=== PATIENT | female | born 1945 | race Caucasian/White ===

== ENCOUNTER → 2017-10-06 | Outpatient (CLI) | payer MEDICARE, OTHER ==
--- NOTE | 2017-10-06 14:04 | RADIOLOGY REPORT (SQ) ---
EXAM DESCRIPTION: CT LUNG CANCER SCREENING COMPLETED DATE/TIME: 10/06/2017 10:52 am REASON FOR STUDY: PERSONAL HX OF NICOTINE DEPENDENCE Z87.891 PERSONAL HISTORY OF NICOTINE DEPENDENC E Has the patient had a Chest CT scan within the past year? Yes. Was the patient offered tobacco cessation counseling? Yes. Was the patient engaged in shared decision making for this test? Yes. Does the patient have signs or symptoms of Lung Cancer? No. Is the patient a smoker? No. How many packs per year? 730. How many years since quitting smoking? 15 years. Patients age: 72. COMPARISON: None. TECHNIQUE: Low Dose CT scan performed of the chest without intravenous contrast for purposes of scre ening for lung cancer. Images reviewed with lung, soft tissue and bone windows. Reconstructed coron al and sagittal MPR images reviewed. All images stored on PACS. All CT scanners at this facility use dose modulation, iterative reconstruction, and/or weight based d osing when appropriate to reduce radiation dose to as low as reasonably achievable (ALARA). [facility]: Dose Right [facility]: CareDose [facility]: Dose Right [facility]: Teradose 4D [facility]: [employer] RADIATION DOSE: mGy. . LIMITATIONS: None FINDINGS: LUNGS AND PLEURA: No masses or nodules. Calcified granulomas. No pleural effusions or calcifications. No pneumothorax. No scarring or interstitial changes. HILAR AND MEDIASTINAL STRUCTURES: No identified masses. No abnormal nodes. Calcified lymph nodes. HEART AND VASCULAR STRUCTURES: No aortic aneurysm. No pericardial effusion. No cardiac devices. CORONARY ARTERY CALCIFICATIONS: Mild to moderate calcifications. UPPER ABDOMEN, THYROID, BONES, OTHER SOFT TISSUES: No significant findings. IMPRESSION: NO SIGNIFICANT FINDING IN THE LUNGS ON NON-CONTRASTED CHEST CT. NO OTHER CLINICALLY SIGNIFICANT/POTENTIALLY CLINICALLY SIGNIFICANT FINDINGS LUNGRADS: LUNGRADS: 1 NEGATIVE. NO NODULES, OR DEFINITELY BENIGN NODULES MODIFIER: NONE RECOMMENDATION: Continue annual screening with LDCT in 12 months. COMMENT: CRITERIA: No lung nodules. Nodules with specific calcifications: Complete, central, popcorn, concentric rings and fat containin g nodules. TECHNICAL DOCUMENTATION: JOB ID: [id number] Quality ID # [id number]: Final reports with documentation of one or more dose reduction techniques (e.g., Au tomated exposure control, adjustment of the mA and/or kV according to patient size, use of iterative reconstruction technique) [address] [place] [address] Radiology Reading location - IP/workstation name: [email or web address]
== END ==
LOC: RAD 10:13
PROVIDERS: ATTEND Physician Assistant
DX: Z87.891 Personal history of nicotine dependence (principal)
CPT/HCPCS: G0297

== ENCOUNTER → 2017-12-03 | Outpatient (CLI) | payer MEDICARE, OTHER ==
[~2017-12-03] MED LIST: ACETAMINOPHEN 0 ML IV ONE; DEXAMETHASONE SOD PHOSPHATE INJ 4 MG/1 ML VIAL ONE; FENTANYL CITRATE INJ/PF 100 MCG/2 ML AMPUL ONE; MIDAZOLAM 2 MG/2 ML INJ ONE; MORPHINE SULFATE 10 MG/ML INJ ONE; ONDANSETRON HCL INJ/PF 4 MG/2 ML SDV ONE; PROPOFOL INJ 200 MG/20 ML VIAL IV ONE; TRANEXAMIC ACID INJ/PF 1,000 MG/10 ML SDV IV ONE
--- NOTE | 2017-12-03 14:12 | WOMENS IMAGING REPORT ---
EXAM DESCRIPTION: 3D SCREENING MAMMO BILAT COMPLETED DATE/TIME: 12/03/2017 1:40 pm REASON FOR STUDY: ROUTINE SCREENING;Z12.31 Z12.31 ENCNTR SCREEN MAMMOGRAM FOR MALIGNANT NEOPLASM OF SHAUNA COMPARISON: [id number] TECHNIQUE: Standard craniocaudal and mediolateral oblique views of each breast recorded using digita l acquisition and breast tomosynthesis. LIMITATIONS: None. FINDINGS: No masses, calcifications or architectural distortion. No areas of suspicion. Read with the assistance of CAD. .[facility] - R2 Cenova Version 1.3 .[facility] Imaging - R2 Cenova Version 1.3 .[facility] Imaging - R2 Cenova Version 2.4 .[facility] - R2 Cenova Version 2.4 .[facility] - R2 Early Childhood Lead Teacher Version 9.2 IMPRESSION: NORMAL MAMMOGRAM. BIRADS 1. BREAST DENSITY: b. There are scattered areas of fibroglandular density. BIRAD: 1 NEGATIVE RECOMMENDATION: ROUTINE SCREENING COMMENT: The patient has been notified of the results by letter per SA requirements. Additional no tification policies are in place for contacting patient with suspicious or incomplete findings. Quality ID #[id number]: The [employer] recommends an annual screening mammogram for women aged 40 years or over. This facility utilizes a reminder system to ensure that all patients receive reminder letters, and/or direct phone calls for appointments. This includes reminders for routine scr eening mammograms, diagnostic mammograms, or other Breast Imaging Interventions when appropriate. Th is patient will be placed in the appropriate reminder system. The [employer] (ACR) has developed recommendations for screening MRI of the breast s in certain patient populations, to be used in conjunction with mammography. Breast MRI surveillanc e may be appropriate for women with more than 20% lifetime risk of developing breast cancer as deter mined by genetic testing, significant family history of the disease, or history of mantle radiation f or Hodgkins Disease. ACR Practice Guidelines 2008. DBT Technology DBT is a type of tomographic mammography. With conventional mammography, overlapping breast tissue ma y make lesions difficult to detect, even with good compression. DBT uses an x-ray tube that rotates a round the breast, taking images at different angles. These images are then combined to create thin sl ices of the breast that the radiologist can view as a 3D reconstruction. The [employer] unit can perform full-field digital mammograms (2D imaging); or DBT (3D imaging); or both, in a combination mode that quickly performs both the mammogram and the tomosynthesis scan while the breast is still compressed. PQRS 6045F: Fluoroscopic imaging is not utilized for breast tomosynthesis. TECHNICAL DOCUMENTATION: FINDING NUMBER: (1) ASSESSMENT: (1) JOB ID: [id number] [employer]- All Rights Reserved Reading location - IP/workstation name: [email or web address]
== END ==
LOC: WI 13:09
PROVIDERS: ATTEND Internal Medicine
DX: Z12.31 Encounter for screening mammogram for malignant neoplasm of breast (principal)
CPT/HCPCS: 77063; 77067; J2250; J1100; J2270; J2405; J2704; J3490; J0131; J3010

== ENCOUNTER → 2018-01-13 | Outpatient (CLI) | payer MEDICARE, OTHER ==
[2018-01-13 16:52] LABS: ABSOLUTE BASOPHILS # (AUTO) 0.1 10^3/uL (0.0-0.2); ABSOLUTE EOSINOPHILS # (AUTO) 0.1 10^3/uL (0.0-0.6); ABSOLUTE LYMPHOCYTES (AUTO) 1.5 10^3/uL (0.5-4.7); ABSOLUTE MONOCYTES (AUTO) 0.5 10^3/uL (0.1-1.4); ABSOLUTE NEUT (AUTO) 4.5 10^3/uL (1.7-8.2); BASOPHILS % (AUTO) 1.1 % (0-2); EOSINOPHILS % (AUTO) 2.2 % (0-6); HEMATOCRIT 38.1 % (36.0-47.0); HEMOGLOBIN 12.6 g/dL (12.0-15.5); LYMPHOCYTES % (AUTO) 22.7 % (13-45); MEAN CORPUSCULAR HEMOGLOBIN 30.2 pg (27.0-33.4); MEAN CORPUSCULAR HGB CONC 33.2 g/dL (32.0-36.0); MEAN CORPUSCULAR VOLUME 91 fl (80-97); MONOCYTES % (AUTO) 7.2 % (3-13); PLATELET COUNT 208 10^3/uL (150-450); RED BLOOD COUNT 4.18 10^6/uL (3.72-5.28); RED CELL DISTRIBUTION WIDTH 13.3 % (11.5-14.0); SEGMENTED NEUTROPHILS % (AUTO) 66.8 % (42-78); TOTAL CELLS COUNTED % (AUTO) 100 %; WHITE BLOOD COUNT 6.7 10^3/uL (4.0-10.5)
[2018-01-13 17:16] LABS: ARTERIAL BLOOD BASE EXCESS 6.3 mmol/L; ARTERIAL BLOOD H2CO3 1.66 mmol/L (1.05-1.35); ARTERIAL BLOOD HCO3 32.7 mmol/L (20-26); ARTERIAL BLOOD O2 SATURATION 83.9 % (94-98); ARTERIAL BLOOD PCO2 55.2 mmHg (35-45); ARTERIAL BLOOD PH 7.39 (7.35-7.45); ARTERIAL BLOOD PO2 49.4 mmHg (80-100); ARTERIAL BLOOD TOTAL CO2 34.4 mmol/L (21-25)
[2018-01-13 17:21] LABS: ARTERIAL BLOOD FIO2 2L
[2018-01-14 14:40] LABS: ANTICHROMATIN AB <0.2 AI (0.0-0.9); CENTROMERE B AB <0.2 AI (0.0-0.9); JO-1 ANTIBODY (ANACOMP) <0.2 AI (0.0-0.9); RNP AB <0.2 AI (0.0-0.9); SCLERODERMA-70 ANTIBODIES <0.2 AI (0.0-0.9); SJOGREN'S ANTI-SS-B AB <0.2 AI (0.0-0.9); SJOGREN'S SS-A ANTIBODY 0.2 AI (0.0-0.9); SMITH AB ANA <0.2 AI (0.0-0.9)
[2018-01-14 17:37] LABS: CYTOPLASMIC (C-ANCA) <1:20 titer (Neg:<1:20)
[2018-01-14 19:28] LABS: DNA DOUBLE STRAND ANTIBODY ANA 2 IU/mL (0-9)
[2018-01-14 19:29] LABS: ATYPICAL PANCA <1:20 titer (Neg:<1:20); PERINUCLEAR (P-ANCA) <1:20 titer (Neg:<1:20)
[2018-01-15 10:38] LABS: M001-IGE PENICILLIUM CHRYSOGEN <0.10 kU/L (Class 0); M002-IGE CLADOSPORIUM HERBARUM <0.10 kU/L (Class 0); M003-IGE ASPERGILLUS FUMIGATUS <0.10 kU/L (Class 0); M004-IGE MUCOR RACEMOSUS <0.10 kU/L (Class 0); M005-IGE CANDIDA ALBICANS 0.17 kU/L (Class 0/I); M006-IGE ALTERNARIA ALTERNATA <0.10 kU/L (Class 0); M009-IGE FUSARIUM PROLIFERATUM <0.10 kU/L (Class 0); M012-IGE AUREOBASIDI PULLULANS <0.10 kU/L (Class 0); M013-IGE PHOMA BETAE <0.10 kU/L (Class 0); M014-IGE EPICOCCUM PURPURASCEN <0.10 kU/L (Class 0)
[2018-01-15 10:52] LABS: M010-IGE STEMPHYLIUM HERBARUM <0.10 kU/L (Class 0)
== END ==
LOC: LAB 16:10
PROVIDERS: ATTEND Physician Assistant
DX: J30.9 Allergic rhinitis, unspecified (principal); R06.00 Dyspnea, unspecified
CPT/HCPCS: 36415; 36600; 82785; 82803; 85025; 86003; 86021; 86225; 86235; 86430

== ENCOUNTER → 2018-01-15 | Outpatient (CLI) | payer MEDICARE, OTHER ==
[2018-01-15 14:57] LABS: ARTERIAL BLOOD BASE EXCESS 5.2 mmol/L; ARTERIAL BLOOD H2CO3 1.71 mmol/L (1.05-1.35); ARTERIAL BLOOD O2 SATURATION 92.5 % (94-98); ARTERIAL BLOOD PCO2 56.9 mmHg (35-45); ARTERIAL BLOOD PH 7.37 (7.35-7.45); ARTERIAL BLOOD PO2 67.4 mmHg (80-100); ARTERIAL BLOOD TOTAL CO2 33.8 mmol/L (21-25)
[2018-01-15 14:58] LABS: ARTERIAL BLOOD FIO2 2L
== END ==
LOC: LAB 12:55
PROVIDERS: ATTEND Physician Assistant
DX: J44.9 Chronic obstructive pulmonary disease, unspecified (principal)
CPT/HCPCS: 36600; 82803

== ENCOUNTER 2018-04-29 14:29 | Emergency (ER) | payer MEDICARE ==
[2018-04-29] MEDS ORDERED: PANTOPRAZOLE SODIUM 40 MG VIAL IV ONE (15:33)
[2018-04-29 16:20] LABS: ABSOLUTE EOSINOPHILS # (AUTO) 0.2 10^3/uL (0.0-0.6); ABSOLUTE LYMPHOCYTES (AUTO) 1.7 10^3/uL (0.5-4.7); ABSOLUTE MONOCYTES (AUTO) 0.5 10^3/uL (0.1-1.4); ABSOLUTE NEUT (AUTO) 4.4 10^3/uL (1.7-8.2); BASOPHILS % (AUTO) 0.4 % (0-2); EOSINOPHILS % (AUTO) 2.8 % (0-6); HEMATOCRIT 36.5 % (36.0-47.0); HEMOGLOBIN 12.1 g/dL (12.0-15.5); LYMPHOCYTES % (AUTO) 24.5 % (13-45); MEAN CORPUSCULAR HEMOGLOBIN 30.5 pg (27.0-33.4); MEAN CORPUSCULAR VOLUME 92 fl (80-97); MONOCYTES % (AUTO) 7.1 % (3-13); PLATELET COUNT 212 10^3/uL (150-450); RED BLOOD COUNT 3.96 10^6/uL (3.72-5.28); RED CELL DISTRIBUTION WIDTH 13.4 % (11.5-14.0); SEGMENTED NEUTROPHILS % (AUTO) 65.2 % (42-78); TOTAL CELLS COUNTED % (AUTO) 100 %; WHITE BLOOD COUNT 6.8 10^3/uL (4.0-10.5)
[2018-04-29 16:28] LABS: APPEARANCE,URINE SLIGHTLY-CLOUDY; BILIRUBIN,URINE NEGATIVE (NEGATIVE); COLOR,URINE YELLOW; GLUCOSE, URINE NEGATIVE (NEGATIVE); KETONES,URINE NEGATIVE (NEGATIVE); LEUKOCYTE ESTERASE,URINE SMALL (NEGATIVE); NITRITE,URINE POSITIVE (NEGATIVE); PROTEIN,URINE 30 mg/dL (NEGATIVE); URINE SPECIFIC GRAVITY 1.015; UROBILINOGEN,URINE NEGATIVE mg/dL (<2.0)
[2018-04-29 16:41] LABS: ALANINE AMINOTRANSFERASE 33 U/L (9-52); ALBUMIN 4.1 g/dL (3.5-5.0); ALKALINE PHOSPHATASE 35 U/L (38-126); ANION GAP 7 (5-19); ASPARTATE AMINO TRANSFERASE 61 U/L (14-36); BILIRUBIN,DIRECT 0.5 mg/dL (0.0-0.4); BILIRUBIN,TOTAL 0.5 mg/dL (0.2-1.3); BLOOD UREA NITROGEN 30 mg/dL (7-20); CALCIUM 9.6 mg/dL (8.4-10.2); CARBON DIOXIDE 32 mmol/L (22-30); CHLORIDE 102 mmol/L (98-107); GLUCOSE 110 mg/dL (75-110); LIPASE 143.9 U/L (23-300); POTASSIUM 4.4 mmol/L (3.6-5.0); SODIUM 141.4 mmol/L (137-145); TOTAL PROTEIN 7.4 g/dL (6.3-8.2)
--- NOTE | 2018-04-29 18:02 | RADIOLOGY REPORT (SQ) ---
EXAM DESCRIPTION: CT ABD/PELVIS WITH IV ONLY COMPLETED DATE/TIME: 04/29/2018 5:47 pm REASON FOR STUDY: black stool hx of diverticulistis COMPARISON: None. TECHNIQUE: CT scan of the abdomen and pelvis performed using helical scanning technique with dynamic intravenous contrast injection. No oral contrast. Images reviewed with lung, soft tissue, and bone windows. Reconstructed coronal and sagittal MPR images reviewed. Delayed images for evaluation of the urinary system also acquired. All images stored on PACS. All CT scanners at this facility use dose modulation, iterative reconstruction, and/or weight based d osing when appropriate to reduce radiation dose to as low as reasonably achievable (ALARA). [facility]: Dose Right [facility]: CareDose [facility]: Dose Right [facility]: Teradose 4D [facility]: [employer] CONTRAST TYPE AND DOSE: contrast/concentration: Isovue 350.00 mg/ml; Total Contrast Delivered: 100.0 ml; Total Saline Delivered: 70.0 ml RENAL FUNCTION: BUN 30, creatinine 0.97 RADIATION DOSE: CT Rad equipment meets quality standard of care and radiation dose reduction techniq ues were employed. CTDIvol: 20.1 - 20.8 mGy. DLP: 2160 mGy-cm.. LIMITATIONS: None. FINDINGS: LOWER CHEST: No significant findings. No nodules or infiltrates. LIVER: Normal size. No masses. No dilated ducts. SPLEEN: There are small splenic lesions most likely cysts or hemangiomas. PANCREAS: No masses. No significant calcifications. No adjacent inflammation or peripancreatic fluid collections. Pancreatic duct not dilated. GALLBLADDER: Surgically absent. ADRENAL GLANDS: No significant masses or asymmetry. RIGHT KIDNEY AND URETER: No solid masses. No significant calcifications. No hydronephrosis or hyd roureter. LEFT KIDNEY AND URETER: No solid masses. No significant calcifications. No hydronephrosis or hydr oureter. AORTA AND VESSELS: No aneurysm. No dissection. Renal arteries, SMA, celiac without stenosis. RETROPERITONEUM: No retroperitoneal adenopathy, hemorrhage or masses. BOWEL AND PERITONEAL CAVITY: No masses or inflammatory changes. No free fluid or peritoneal masses. APPENDIX: Not visualized. PELVIS: No mass. No free fluid. Normal bladder. ABDOMINAL WALL: No masses. No hernias. BONES: No significant or acute findings. OTHER: No other significant finding. IMPRESSION: NO SIGNIFICANT OR ACUTE FINDING IN THE ABDOMEN OR PELVIS ON CT SCAN WITH IV CONTRAST. TECHNICAL DOCUMENTATION: JOB ID: [id number] Quality ID # [id number]: Final reports with documentation of one or more dose reduction techniques (e.g., Au tomated exposure control, adjustment of the mA and/or kV according to patient size, use of iterative reconstruction technique) 2010 [employer]- All Rights Reserved Reading location - IP/workstation name: [email or web address]
[2018-04-29] MEDS ORDERED: NITROFURANTOIN MONOHYD/M-CRYST 100 MG CAPSULE PO ONE (18:15)
[2018-04-29 18:41] VITALS: BP 154/65
--- NOTE | 2018-04-29 18:41 | ER Document Report ---
ED General - General Chief Complaint: Black/Tarry Stools Stated Complaint: BLACK STOOLS Time Seen by Provider: 04/29/18 15:26 TRAVEL OUTSIDE OF THE [place] IN LAST 30 DAYS: No - HPI Patient complains to provider of: Black tarry stools Notes: Patient coming in for evaluation of black tarry stool states ongoing for the last 4 days. Patient also states having some right lower quadrant abdominal pain. Denies any fevers chills nausea vomiting diarrhea. Patient states she has been taking some increased Advil over the last few days because of the pain. Patient does have a history of GI bleeds in the past states that her last colonoscopy was [address] Sierra that she states was normal. Patient denies any history of gastritis or stomach ulcers. Patient otherwise is resting comfortably upon my evaluation denies eating any beats taking Pepto- Bismol or any other etiologies that may explain the black stools. Patient states she does have a history of diverticulitis however does not feel the same today. Patient no obvious distress. Upon my evaluation - Related Data Allergies/Adverse Reactions: morphine Allergy (Intermediate, Verified 04/29/18 14:33) Erythema Multiforme metformin Adverse Reaction (Verified 04/29/18 14:33) Diarrhea Past Medical History - Social History Smoking Status: Former Smoker Frequency of alcohol use: None Drug Abuse: None Family History: Reviewed & Not Pertinent Patient has suicidal ideation: No Patient has homicidal ideation: No - Past Medical History Cardiac Medical History: Reports: Hx Hypercholesterolemia, Hx Hypertension Pulmonary Medical History: Reports: Hx COPD, Hx Pneumonia, Hx Intubation Neurological Medical History: Reports: Hx Seizures Endocrine Medical History: Reports: Hx Diabetes Mellitus Type 1 Renal/ Medical History: Denies: Hx Peritoneal Dialysis Musculoskeletal Medical History: Reports Hx Arthritis Psychiatric Medical History: Reports: Hx Depression Traumatic Medical History: Reports: Hx Pneumothorax Past Surgical History: Reports: Hx Cardiac Catheterization, Hx Cholecystectomy, Hx Hysterectomy, Hx Orthopedic Surgery - knee - Immunizations Hx Diphtheria, Pertussis, Tetanus Vaccination: No Hx Pneumococcal Vaccination: 04/27/14 Review of Systems - Review of Systems Constitutional: No symptoms reported EENT: No symptoms reported Cardiovascular: No symptoms reported Respiratory: No symptoms reported Gastrointestinal: Abdominal pain, Rectal bleeding Genitourinary: No symptoms reported Female Genitourinary: No symptoms reported Musculoskeletal: No symptoms reported Skin: No symptoms reported Hematologic/Lymphatic: No symptoms reported Neurological/Psychological: No symptoms reported -: Yes All other systems reviewed and negative Physical Exam - Vital signs Vitals: Temp Pulse Resp BP Pulse Ox 98.7 F 66 18 135/74 H 91 L 04/29/18 14:36 04/29/18 14:36 04/29/18 14:36 04/29/18 14:36 04/29/18 14:36 Interpretation: Normal - General General appearance: Appears well, Alert - HEENT Head: Normocephalic, Atraumatic Eyes: Normal Pupils: PERRL - Respiratory Respiratory status: No respiratory distress Chest status: Nontender Breath sounds: Normal Chest palpation: Normal - Cardiovascular Rhythm: Regular Heart sounds: Normal auscultation Murmur: No - Abdominal Inspection: Normal Distension: No distension Bowel sounds: Normal Tenderness: Nontender Organomegaly: No organomegaly - Rectal Stool: Other - Stools not black will not light brown more dark brown in color no bright red blood seen on examination Hemoccult card to return blue testing was performed at bedside I am not colored blood and able t see the color BLUE - Back Back: Normal, Nontender - Extremities General upper extremity: Normal inspection, Nontender, Normal color, Normal ROM , Normal temperature General lower extremity: Normal inspection, Nontender, Normal color, Normal ROM , Normal temperature, Normal weight bearing. No: Tash's sign - Neurological Neuro grossly intact: Yes Cognition: Normal Orientation: AAOx4 [place] Coma Scale Eye Opening: Spontaneous [place] Coma Scale Verbal: Oriented [place] Coma Scale Motor: Obeys Commands Jack Coma Scale Total: 15 Speech: Normal Motor strength normal: LUE, RUE, LLE, RLE Sensory: Normal - Psychological Associated symptoms: Normal affect, Normal mood - Skin Skin Temperature: Warm Skin Moisture: Dry Skin Color: Normal Course - Re-evaluation Re-evalutation: 04/29/18 22:25 CT scan of the abdomen was negative patient's hemoglobin is stable with a hemoglobin of 12. No clear etiology for the patient's bleeding at this time did discuss with her GI physician Dr. Sierra who agrees that with a stable hemoglobin patient can be follow-up as outpatient patient will be started on omeprazole Dr. Sierra's office will call the patient tomorrow to schedule a EGD. Patient was encouraged to avoid any anti-inflammatory medications urinalysis does show positive nitrates will start patient on Macrobid. Patient agrees with this plan understands return to ER symptoms worsen patient discharged home. - Vital Signs Vital signs: Temp Pulse Resp BP Pulse Ox 98.4 F 82 21 H 154/65 H 98 04/29/18 15:21 04/29/18 18:40 04/29/18 18:40 04/29/18 18:40 04/29/18 18:40 - Laboratory Result Diagrams: 04/29/18 16:05 04/29/18 16:05 Laboratory results interpreted by me: 04/29/18 04/29/18 15:39 16:05 Carbon Dioxide 32 H BUN 30 H Est GFR (Non-Af Amer) 56 L Direct Bilirubin 0.5 H AST 61 H Alkaline Phosphatase 35 L Urine Protein 30 H Urine Nitrite POSITIVE H Ur Leukocyte Esterase SMALL H Discharge - Discharge Clinical Impression: Blood in stool UTI (urinary tract infection) Qualifiers: Urinary tract infection type: acute cystitis Hematuria presence: without hematuria Qualified Code(s): N30.00 - Acute cystitis without hematuria Disposition: HOME, SELF-CARE Instructions: Nitrofurantoin ([facility]), Positive Test for Blood in Stool ([facility]), Prilosec (Acid Pump Inhibitor) ([facility]), Urinary Tract Infection ([facility]) Additional Instructions: Your laboratory studies today show a normal hemoglobin with a little bit of blood in your stool. I did discuss this case with Dr. Sierra your GI physician he will have his office call you to schedule you further scopes for further evaluation otherwise her vital signs laboratory studies CT scan show that you are safe enough to go home. I would highly recommend that she continue with the omeprazole as prescribed. Also urinary studies show signs of infection we will start you on Macrobid return to the ER for any worsening of symptoms. Prescriptions: Nitrofurantoin Monohyd/M-Cryst [Macrobid 100 mg Capsule] 100 mg PO BID #14 capsule Omeprazole 20 mg PO DAILY #30 tablet. Referrals: TUAN DERAS MD [Primary Care Provider] - Follow up as needed
== END 2018-04-29 18:55 | disposition home or self-care (01) ==
LOC: ER 14:29
DX: K92.1 Melena (principal); N30.00 Acute cystitis without hematuria; R10.31 Right lower quadrant pain; I10 Essential (primary) hypertension; E10.9 Type 1 diabetes mellitus without complications; J44.9 Chronic obstructive pulmonary disease, unspecified; Z87.19 Personal history of other diseases of the digestive system; Z88.5 Allergy status to narcotic agent; Z87.891 Personal history of nicotine dependence; Z90.49 Acquired absence of other specified parts of digestive tract; Z90.710 Acquired absence of both cervix and uterus
CPT/HCPCS: 99284; 96374; 86900; 86901; 36415; 87086; 86850; 83690; 85025; 87088; 80053; 81001; 87186; 74177; C9113; A9270; J8499; S0164

== ENCOUNTER → 2018-10-09 | Outpatient (CLI) | payer MEDICARE, OTHER ==
--- NOTE | 2018-10-09 14:49 | RADIOLOGY REPORT (SQ) ---
EXAM DESCRIPTION: CT LUNG CANCER SCREENING COMPLETED DATE/TIME: 10/09/2018 2:36 pm REASON FOR STUDY: Z87.891 PERSONAL HISTORY OF NICOTINE DEPENDENCE Z87.891 PERSONAL HISTORY OF NICOT INE DEPENDENCE Has the patient had a Chest CT scan within the past year? Was the patient offered tobacco cessation counseling? Was the patient engaged in shared decision making for this test? Does the patient have signs or symptoms of Lung Cancer? Is the patient a smoker? How many pack years? How many years since quitting smoking? Patients age: COMPARISON: 10/06/2017 TECHNIQUE: Low Dose CT scan performed of the chest without intravenous contrast for purposes of scre ening for lung cancer. Images reviewed with lung, soft tissue and bone windows. Reconstructed coron al and sagittal MPR images reviewed. All images stored on PACS. All CT scanners at this facility use dose modulation, iterative reconstruction, and/or weight based d osing when appropriate to reduce radiation dose to as low as reasonably achievable (ALARA). [facility]: Dose Right [facility]: CareDose [facility]: Dose Right [facility]: Teradose 4D [facility]: [employer] RADIATION DOSE: mGy. . LIMITATIONS: None FINDINGS: LUNGS AND PLEURA: Calcified granulomas. No suspicious nodules. No pleural effusions or calcifications. No pneumothorax. HILAR AND MEDIASTINAL STRUCTURES: No identified masses. No abnormal nodes. HEART AND VASCULAR STRUCTURES: No aortic aneurysm. No pericardial effusion. No cardiac devices. CORONARY ARTERY CALCIFICATIONS: Mild to moderate calcifications. UPPER ABDOMEN, THYROID, BONES, OTHER SOFT TISSUES: No significant findings. IMPRESSION: NO SIGNIFICANT FINDING IN THE LUNGS ON NON-CONTRASTED CHEST CT. NO OTHER CLINICALLY SIGNIFICANT/POTENTIALLY CLINICALLY SIGNIFICANT FINDINGS LUNGRADS: LUNGRADS: 1 NEGATIVE. NO NODULES, OR DEFINITELY BENIGN NODULES MODIFIER: NONE RECOMMENDATION: Continue annual screening with LDCT in 12 months. COMMENT: CRITERIA: No lung nodules. Nodules with specific calcifications: Complete, central, popcorn, concentric rings and fat containin g nodules. TECHNICAL DOCUMENTATION: JOB ID: [id number] Quality ID # [id number]: Final reports with documentation of one or more dose reduction techniques (e.g., Au tomated exposure control, adjustment of the mA and/or kV according to patient size, use of iterative reconstruction technique) 2010 [facility] Reading location - IP/workstation name: [email or web address]
== END ==
LOC: RAD 14:37
PROVIDERS: ATTEND Internal Medicine Pulmonary Disease
DX: Z87.891 Personal history of nicotine dependence (principal)
CPT/HCPCS: G0297

== ENCOUNTER → 2018-11-11 | Outpatient (CLI) | payer MEDICARE, OTHER ==
[2018-11-11 14:39] LABS: HEMATOCRIT 35.7 % (36.0-47.0); HEMOGLOBIN 12.1 g/dL (12.0-15.5); MEAN CORPUSCULAR HEMOGLOBIN 30.2 pg (27.0-33.4); MEAN CORPUSCULAR VOLUME 89 fl (80-97); PLATELET COUNT 198 10^3/uL (150-450); RED BLOOD COUNT 4.01 10^6/uL (3.72-5.28); WHITE BLOOD COUNT 6.5 10^3/uL (4.0-10.5)
[2018-11-11 15:11] LABS: ALANINE AMINOTRANSFERASE 32 U/L (9-52); ALBUMIN 4.2 g/dL (3.5-5.0); ALKALINE PHOSPHATASE 54 U/L (38-126); ANION GAP 10 (5-19); ASPARTATE AMINO TRANSFERASE 36 U/L (14-36); BILIRUBIN,DIRECT 0.3 mg/dL (0.0-0.4); BILIRUBIN,TOTAL 0.3 mg/dL (0.2-1.3); BLOOD UREA NITROGEN 25 mg/dL (7-20); CARBON DIOXIDE 29 mmol/L (22-30); CHLORIDE 99 mmol/L (98-107); GLUCOSE 193 mg/dL (75-110); POTASSIUM 4.3 mmol/L (3.6-5.0); TOTAL PROTEIN 7.4 g/dL (6.3-8.2)
== END ==
LOC: LAB 14:11
PROVIDERS: ATTEND Internal Medicine Cardiovascular Disease
DX: E78.5 Hyperlipidemia, unspecified (principal); R00.2 Palpitations; I10 Essential (primary) hypertension; R07.89 Other chest pain; D63.8 Anemia in other chronic diseases classified elsewhere
CPT/HCPCS: 36415; 80048; 80076; 83735; 84443; 85027

== ENCOUNTER → 2019-02-01 | Outpatient (CLI) | payer MEDICARE, OTHER ==
[2019-02-01 09:51] LABS: ALANINE AMINOTRANSFERASE 32 U/L (9-52); ALBUMIN 4.1 g/dL (3.5-5.0); ALKALINE PHOSPHATASE 58 U/L (38-126); ASPARTATE AMINO TRANSFERASE 39 U/L (14-36); BILIRUBIN,DIRECT 0.3 mg/dL (0.0-0.4); BILIRUBIN,TOTAL 0.4 mg/dL (0.2-1.3); CHOLESTEROL 152.34 mg/dL (0-200); CREATINE KINASE 188 U/L (30-135); TRIGLYCERIDES 192 mg/dL (<150)
[2019-02-01 10:02] LABS: DIRECT LDL 66 mg/dL (<100); VLDL CHOLESTEROL 38.4 mg/dL (10-31)
== END ==
LOC: LAB 09:09
PROVIDERS: ATTEND Physician Assistant
DX: E78.5 Hyperlipidemia, unspecified (principal); Z79.899 Other long term (current) drug therapy
CPT/HCPCS: 36415; 80061; 80076; 82550

== ENCOUNTER 2019-02-28 20:28 | Inpatient (IN) | payer MEDICARE, OTHER ==
[2019-02-28] MEDS ORDERED: NORMAL SALINE 250 ML IV PRN (20:54)
[2019-02-28] MEDS ORDERED: PANTOPRAZOLE SODIUM 40 MG VIAL IV ONE (20:55)
--- NOTE | 2019-02-28 21:00 | ER Document Report ---
ED GI Bleed / Rectal Pain - General Chief Complaint: Bloody Stools Stated Complaint: ABDOMINAL PAIN Time Seen by Provider: 02/28/19 20:38 Primary Care Provider: JENNIFER COOPER PA-C [Primary Care Provider] - Follow up as needed Notes: This is a pleasant 73-year-old female patient emergency department chief compla int of GI bleed. Patient states that she has been bleeding bright red blood and black stools for the last several days. Family members were out of town. They came over to check on her today and she was very dizzy and pale. Had had multiple bowel movements throughout the weekend and most of them were bloody and black. States that she has had GI bleeds in the past. Followed by Dr. Sierra. 3 years ago she nearly bled out after colonoscopy when he had removed some colon polyps. She was having some abdominal pain and bloating as well today. She does not have any pain at this time however. TRAVEL OUTSIDE OF THE [place] IN LAST 30 DAYS: No - HPI Patient complains to provider of: Bright red bld from rect., Dark red bld from rectum, Dark/tarry stools, Rectal pain Onset: Yesterday Timing/Duration: Constant, Persistent Quality of pain: Achy Severity of symptoms: Mild Pain Level: 1 Rectal bleeding: Blood mixed w/ stool Dark Stools: Maroon, Black Associated symptoms: Abdominal pain, Other - Nausea - Related Data Allergies/Adverse Reactions: morphine Allergy (Intermediate, Verified 02/05/19 11:29) Erythema Multiforme metformin Adverse Reaction (Verified 02/05/19 11:29) Diarrhea Past Medical History - General Information source: Patient, [facility] Records - Social History Smoking Status: Former Smoker Cigarette use (# per day): No Frequency of alcohol use: None Drug Abuse: None Lives with: Alone Family History: Reviewed & Not Pertinent - Past Medical History Cardiac Medical History: Reports: Hx Hypercholesterolemia, Hx Hypertension Pulmonary Medical History: Reports: Hx COPD, Hx Pneumonia, Hx Intubation Neurological Medical History: Reports: Hx Seizures Endocrine Medical History: Reports: Hx Diabetes Mellitus Type 1 Renal/ Medical History: Denies: Hx Peritoneal Dialysis Musculoskeletal Medical History: Reports Hx Arthritis Psychiatric Medical History: Reports: Hx Depression Traumatic Medical History: Reports: Hx Pneumothorax Past Surgical History: Reports: Hx Cardiac Catheterization, Hx Cholecystectomy, Hx Hysterectomy, Hx Orthopedic Surgery - knee - Immunizations Hx Diphtheria, Pertussis, Tetanus Vaccination: No Hx Pneumococcal Vaccination: 04/27/14 Review of Systems - Review of Systems Notes: Constitutional: denies: Chills, Diaphoresis, Fever,+ Malaise, +Weakness EENT: denies: Eye discharge, Blurred vision, Tearing, Double vision, Nose congestion, Nose discharge, Throat swelling, Mouth pain Cardiovascular: denies: Palpitations, Heart racing, Orthopnea, Dyspnea, Chest pain Respiratory: denies: Cough, Hurts to breathe, Wheezing, Shortness of breath GI: +Abdominal bloating, cramping, black tarry stools, bright red blood in the stool Genitourinary: denies: Burning, Dysuria, Discharge, Frequency, Flank pain, Hematuria Musculoskeletal: denies: Joint pain, Joint swelling, Muscle pain, Muscle stiffness, back pain Hematologic/Lymphatic: denies: Anemia, Easy bleeding, Easy bruising, Blood clots Neurological/Psychological: denies: Confusion, Dementia, Depression, Loss of consciousness Skin: No lesions, no masses, no skin breakdown, no abscesses Physical Exam - Vital signs Vitals: Resp 12 02/28/19 20:38 Interpretation: Normal - General General appearance: Appears well, Alert - HEENT Head: Normocephalic, Atraumatic Eyes: Normal Pupils: PERRL - Respiratory Respiratory status: No respiratory distress Chest status: Nontender Breath sounds: Normal Chest palpation: Normal - Cardiovascular Rhythm: Regular Heart sounds: Normal auscultation Murmur: No - Abdominal Inspection: Normal Distension: Distended, Tympanitic Bowel sounds: Normal Tenderness: Tender - Mild tenderness but no guarding or rebound. Organomegaly: No organomegaly - Rectal Notes: Patient has a large amount of dried blood perirectal area. No obvious masses w ere palpated on rectal exam. She has melanotic stool at the tip of the glove. Grossly positive on guaiac card. - Back Back: Normal, Nontender - Extremities General upper extremity: Normal inspection, Nontender, Normal color, Normal ROM, Normal temperature General lower extremity: Normal inspection, Nontender, Normal color, Normal ROM, Normal temperature, Normal weight bearing. No: Tash's sign - Neurological Neuro grossly intact: Yes Cognition: Normal Orientation: AAOx4 [place] Coma Scale Eye Opening: Spontaneous Jack Coma Scale Verbal: Oriented Jack Coma Scale Motor: Obeys Commands [place] Coma Scale Total: 15 Speech: Normal Motor strength normal: LUE, RUE, LLE, RLE Sensory: Normal - Psychological Associated symptoms: Normal affect, Normal mood - Skin Skin Temperature: Warm Skin Moisture: Dry Skin Color: Normal Course - Re-evaluation Re-evalutation: 02/28/19 22:32 Laboratory 02/28/19 02/28/19 02/28/19 21:29 21:29 21:29 WBC 6.4 RBC 2.07 L Hgb 6.5 L Hct 20.1 L MCV 97 D MCH 31.3 MCHC 32.2 RDW 13.5 Plt Count 224 Seg Neutrophils % 66.8 Lymphocytes % 23.0 Monocytes % 6.7 Eosinophils % 2.7 Basophils % 0.8 Absolute Neutrophils 4.3 Absolute Lymphocytes 1.5 Absolute Monocytes 0.4 Absolute Eosinophils 0.2 Absolute Basophils 0.0 PT 13.9 INR 1.07 APTT 27.0 Sodium 141.8 Potassium 5.1 H Chloride 108 H Carbon Dioxide 28 Anion Gap 6 BUN 53 H Creatinine 1.30 H Est GFR ( Amer) 48 L Est GFR (Non-Af Amer) 40 L Glucose 190 H Calcium 9.1 Total Bilirubin 0.1 L Direct Bilirubin 0.1 Neonat Total Bilirubin Not Reportable Neonat Direct Bilirubin Not Reportable Neonat Indirect Bili Not Reportable AST 34 ALT 22 Alkaline Phosphatase 54 Troponin I Total Protein 6.3 Albumin 3.7 Lipase 179.2 Crossmatch 02/28/19 02/28/19 21:29 21:40 WBC RBC Hgb Hct MCV MCH MCHC RDW Plt Count Seg Neutrophils % Lymphocytes % Monocytes % Eosinophils % Basophils % Absolute Neutrophils Absolute Lymphocytes Absolute Monocytes Absolute Eosinophils Absolute Basophils PT INR APTT Sodium Potassium Chloride Carbon Dioxide Anion Gap BUN Creatinine Est GFR ( Amer) Est GFR (Non-Af Amer) Glucose Calcium Total Bilirubin Direct Bilirubin Neonat Total Bilirubin Neonat Direct Bilirubin Neonat Indirect Bili AST ALT Alkaline Phosphatase Troponin I < 0.012 Total Protein Albumin Lipase Crossmatch See Detail Hemoglobin of 6.5 and melanotic. Started on Protonix drip. Dr. Alexander is be en made aware of the patient in case she requires immediate intervention. At this time her blood pressure and heart rate is stable. Will consult with hospitalist for admission. Patient will need to be transfused at this time. Patient is comfortable with this plan. X-ray was performed. I do not see any free air. Does have a slightly elevated potassium at 5.1 which will need to be monitored but I am going to give her some fluids along with the blood transfusion so that should help. 02/28/19 22:36 Hospitalist to admit. - Vital Signs Vital signs: Temp Pulse Resp BP Pulse Ox 98.1 F 20 140/41 H 96 02/28/19 20:40 02/28/19 20:40 02/28/19 20:40 02/28/19 20:40 - Laboratory Result Diagrams: 02/28/19 21:29 02/28/19 21:29 Laboratory results interpreted by me: 02/28/19 02/28/19 02/28/19 21:29 21:29 21:40 RBC 2.07 L Hgb 6.5 L Hct 20.1 L Potassium 5.1 H Chloride 108 H BUN 53 H Creatinine 1.30 H Est GFR ( Amer) 48 L Est GFR (Non-Af Amer) 40 L Glucose 190 H Total Bilirubin 0.1 L Crossmatch See Detail - EKG Interpretation by Me EKG shows normal: Sinus rhythm, Grant, Intervals, QRS Complexes, ST-T Waves Critical Care Note - Critical Care Note Total time excluding time spent on procedures (mins): 45 Comments: GI bleed, transfusion, consultation with specialist Discharge - Discharge Clinical Impression: Acute GI bleeding Condition: Good Disposition: ADMITTED INPATIENT Admitting Provider: Bruce (Hospitalist) Unit Admitted: ICU Referrals: JENNIFER COOPER PA-C [Primary Care Provider] - Follow up as needed
[2019-02-28 21:57] LABS: ABSOLUTE EOSINOPHILS # (AUTO) 0.2 10^3/uL (0.0-0.6); ABSOLUTE LYMPHOCYTES (AUTO) 1.5 10^3/uL (0.5-4.7); ABSOLUTE MONOCYTES (AUTO) 0.4 10^3/uL (0.1-1.4); ABSOLUTE NEUT (AUTO) 4.3 10^3/uL (1.7-8.2); BASOPHILS % (AUTO) 0.8 % (0-2); EOSINOPHILS % (AUTO) 2.7 % (0-6); HEMATOCRIT 20.1 % (36.0-47.0); MEAN CORPUSCULAR HEMOGLOBIN 31.3 pg (27.0-33.4); MEAN CORPUSCULAR HGB CONC 32.2 g/dL (32.0-36.0); MONOCYTES % (AUTO) 6.7 % (3-13); PLATELET COUNT 224 10^3/uL (150-450); RED BLOOD COUNT 2.07 10^6/uL (3.72-5.28); RED CELL DISTRIBUTION WIDTH 13.5 % (11.5-14.0); SEGMENTED NEUTROPHILS % (AUTO) 66.8 % (42-78); TOTAL CELLS COUNTED % (AUTO) 100 %; WHITE BLOOD COUNT 6.4 10^3/uL (4.0-10.5)
[2019-02-28 22:11] LABS: ALBUMIN 3.7 g/dL (3.5-5.0); ALKALINE PHOSPHATASE 54 U/L (38-126); ANION GAP 6 (5-19); ASPARTATE AMINO TRANSFERASE 34 U/L (14-36); BILIRUBIN,DIRECT 0.1 mg/dL (0.0-0.4); BILIRUBIN,TOTAL 0.1 mg/dL (0.2-1.3); BLOOD UREA NITROGEN 53 mg/dL (7-20); CALCIUM 9.1 mg/dL (8.4-10.2); CARBON DIOXIDE 28 mmol/L (22-30); CHLORIDE 108 mmol/L (98-107); GLUCOSE 190 mg/dL (75-110); POTASSIUM 5.1 mmol/L (3.6-5.0); TOTAL PROTEIN 6.3 g/dL (6.3-8.2)
[2019-02-28 22:13] LABS: INTERNATIONAL RATION (INR) 1.07; PROTHROMBIN TIME 13.9 SEC (11.4-15.4)
[2019-02-28 22:22] LABS: MEAN CORPUSCULAR VOLUME 97 fl (80-97)
[2019-02-28 22:23] LABS: HEMOGLOBIN 6.5 g/dL (12.0-15.5)
--- NOTE | 2019-02-28 22:43 | RADIOLOGY REPORT (SQ) ---
EXAM DESCRIPTION: [facility]: XR ABDOMEN SUPINE AND ERECT WITH CHEST (ABD ACUTE SERIES) Views: 3 CLINICAL HISTORY: 73 years Female, abd pain COMPARISON: 12/11/2015 and FINDINGS: AP Chest: Lungs are clear without infiltrate, effusion, pneumothorax. Mediastinum is within normal limits for positioning. No acute bone findings. Supine and erect AP abdomen: Bowel gas pattern is normal, with no air-fluid levels or small bowel distention. No free intraperitoneal air. No suspicious calcifications. Right-sided sacral stimulator electrode and device are noted. Lead is intact. Right upper quadrant surgical clips are noted. IMPRESSION: 1. No acute findings.
[2019-02-28] MEDS ORDERED: IPRATROPIUM/ALBUTEROL 0.5-2.5 MG/3 ML AMPUL NEB PRN (22:52)
[2019-02-28] MEDS ORDERED: NORMAL SALINE 1000 ML 1,000 ML IV ONE (22:55)
[2019-02-28] MEDS ORDERED: METOPROLOL TARTRATE PF/INJ 5 MG/5 ML SDV IV PRN (22:56)
--- NOTE | 2019-02-28 23:09 | EKG REPORT ---
SEVERITY:- NORMAL ECG - SINUS RHYTHM : Confirmed by: Annamarie Oneill MD 28-Feb-2019 23:09:02
[2019-03-01] MEDS ORDERED: PANTOPRAZOLE SODIUM 40 MG VIAL IV PRN (01:01)
[2019-03-01] MEDS: NORMAL SALINE 100 ML with PANTOPRAZOLE SODIUM 80 MG IV PRN ×6 (01:17→21:21)
[2019-03-01 03:08] LABS: APPEARANCE,URINE CLEAR; BILIRUBIN,URINE NEGATIVE (NEGATIVE); COLOR,URINE YELLOW; GLUCOSE, URINE >=500 mg/dL (NEGATIVE); KETONES,URINE NEGATIVE (NEGATIVE); LEUKOCYTE ESTERASE,URINE TRACE (NEGATIVE); NITRITE,URINE NEGATIVE (NEGATIVE); PROTEIN,URINE NEGATIVE (NEGATIVE); URINE SPECIFIC GRAVITY 1.014; UROBILINOGEN,URINE NEGATIVE mg/dL (<2.0)
[2019-03-01 05:54] LABS: ABSOLUTE EOSINOPHILS # (AUTO) 0.2 10^3/uL (0.0-0.6); ABSOLUTE LYMPHOCYTES (AUTO) 1.5 10^3/uL (0.5-4.7); ABSOLUTE MONOCYTES (AUTO) 0.4 10^3/uL (0.1-1.4); ABSOLUTE NEUT (AUTO) 3.5 10^3/uL (1.7-8.2); BASOPHILS % (AUTO) 0.5 % (0-2); EOSINOPHILS % (AUTO) 3.6 % (0-6); HEMATOCRIT 23.8 % (36.0-47.0); LYMPHOCYTES % (AUTO) 26.4 % (13-45); MEAN CORPUSCULAR HEMOGLOBIN 30.1 pg (27.0-33.4); MEAN CORPUSCULAR HGB CONC 33.1 g/dL (32.0-36.0); MONOCYTES % (AUTO) 7.1 % (3-13); PLATELET COUNT 201 10^3/uL (150-450); RED BLOOD COUNT 2.61 10^6/uL (3.72-5.28); RED CELL DISTRIBUTION WIDTH 14.1 % (11.5-14.0); SEGMENTED NEUTROPHILS % (AUTO) 62.4 % (42-78); TOTAL CELLS COUNTED % (AUTO) 100 %; WHITE BLOOD COUNT 5.6 10^3/uL (4.0-10.5)
[2019-03-01 05:57] LABS: HEMOGLOBIN 7.9 g/dL (12.0-15.5)
[2019-03-01 05:59] LABS: MEAN CORPUSCULAR VOLUME 91 fl (80-97)
[2019-03-01 06:07] LABS: ANION GAP 8 (5-19); BLOOD UREA NITROGEN 45 mg/dL (7-20); CALCIUM 8.6 mg/dL (8.4-10.2); CARBON DIOXIDE 26 mmol/L (22-30); CHLORIDE 109 mmol/L (98-107); GLUCOSE 115 mg/dL (75-110); POTASSIUM 4.6 mmol/L (3.6-5.0)
[2019-03-01] MEDS ORDERED: PEG 3350/NA SULF,BICARB,CL/KCL 4000 ML PO ONE (06:30)
--- NOTE | 2019-03-01 06:35 | PDOC H&P ---
History of Present Illness Admission Date/PCP: 02/28/19 22:42 JENNIFER COOPER PA-C Patient complains of: Bloody stools History of Present Illness: JAMIE DAN I is a 73 year old female with a past medical history of a esophageal stenosis requiring frequent dilatations, lower GI bleed, hypertension, obstructive sleep apnea, interstitial lung disease, diabetes and depression. She presents with several days of black stools that became red developing generalized weakness and lightheadedness. In the emergency room she is found to have heme positive stool and a hemoglobin of 6.5. She denies abdominal pain, blood thinner use but has recently used aspirin, she is ordered 2 units of packed red blood cells and referred to the hospitalist for admission. Past Medical History Cardiac Medical History: Reports: Hyperlipidema, Hypertension Pulmonary Medical History: Reports: Chronic Obstructive Pulmonary Disease (COPD), Intubation, Pneumonia Neurological Medical History: Reports: Seizures Endocrine Medical History: Reports: Diabetes Mellitus Type 1 Musculoskeltal Medical History: Reports: Arthritis Psychiatric Medical History: Denies: Depression Traumatic Medical History: Reports: Pneumothorax Past Surgical History Past Surgical History: Reports: Cardiac Catheterization, Cholecystectomy, Hysterectomy, Orthopedic Surgery - knee Social History Information Source: Patient Lives with: Alone Smoking Status: Former Smoker Frequency of Alcohol Use: None Hx Recreational Drug Use: No Drugs: None Hx Prescription Drug Abuse: No - Advance Directive Resuscitation Status: Full Code Family History Family History: Reviewed & Not Pertinent Parental Family History Reviewed: Yes Children Family History Reviewed: Yes Sibling(s) Family History Reviewed.: Yes Medication/Allergy Home Medications: Pregabalin [Lyrica 100 mg Capsule] 300 mg PO BID 10/03/11 Tiotropium [place] [Spiriva Handihaler 18 mcg/dose (30 Dose)] 18 mcg IH DAILY 12/12/15 Albuterol Sulfate [Ventolin Hfa] 2 inh IH Q4H PRN 04/29/18 Fluticasone Propionate [Flonase Nasal [place] 50 Mcg/[place] 16 gm] 2 sprays NASL Q12 04/29/18 Folic Acid 1 mg PO DAILY 04/29/18 Insulin Glargine,Hum.rec.anlog [Lantus Solostar] 70 unit SQ QHS 04/29/18 Metoprolol Tartrate [Lopressor 50 mg Tablet] 50 mg PO BID 04/29/18 Omeprazole 20 mg PO DAILY #30 tablet. 04/29/18 Paroxetine HCl 20 mg PO DAILY 04/29/18 Pramipexole Di-HCl [Mirapex] 1 mg PO QHS 04/29/18 Simvastatin 20 mg PO QHS 04/29/18 Telmisartan [Micardis] 80 mg PO DAILY 04/29/18 Furosemide [Lasix 20 mg Tablet] 20 mg PO QAM #10 tablet 02/05/19 Sulfamethoxazole/Trimethoprim [Bactrim Ds Tablet] 1 each PO BID #14 tablet 02/05/19 Allergies/Adverse Reactions: morphine Allergy (Intermediate, Verified 02/05/19 11:29) Erythema Multiforme metformin Adverse Reaction (Verified 02/05/19 11:29) Diarrhea Review of Systems Constitutional: ABSENT: chills, fever(s), headache(s), weight gain, weight loss Eyes: ABSENT: visual disturbances Ears: ABSENT: hearing changes Cardiovascular: ABSENT: chest pain, dyspnea on exertion, edema, orthropnea, palpitations Respiratory: ABSENT: cough, hemoptysis Gastrointestinal: ABSENT: abdominal pain, constipation, diarrhea, hematemesis, hematochezia, nausea, vomiting Genitourinary: ABSENT: dysuria, hematuria Musculoskeletal: ABSENT: joint swelling Integumentary: ABSENT: rash, wounds Neurological: ABSENT: abnormal gait, abnormal speech, confusion, dizziness, focal weakness, syncope Psychiatric: ABSENT: anxiety, depression, homidical ideation, suicidal ideation Endocrine: ABSENT: cold intolerance, heat intolerance, polydipsia, polyuria Hematologic/Lymphatic: ABSENT: easy bleeding, easy bruising Physical Exam Vital Signs: Temp Pulse Resp BP Pulse Ox 97.9 F 76 14 127/47 H 95 03/01/19 04:42 03/01/19 04:42 03/01/19 04:42 03/01/19 04:42 03/01/19 04:42 Intake & Output 02/27/19 02/28/19 03/01/19 11:59 11:59 11:59 Intake Total 1700 Output Total 675 Balance 1025 Weight 108.3 kg General appearance: PRESENT: cooperative, mild distress, well-developed, well- nourished. ABSENT: disheveled Head exam: PRESENT: atraumatic, normocephalic Eye exam: PRESENT: conjunctiva pale, EOMI, PERRLA. ABSENT: conjunctiva pink Ear exam: PRESENT: normal external ear exam Mouth exam: PRESENT: moist, tongue midline Neck exam: ABSENT: carotid bruit, JVD, lymphadenopathy, thyromegaly Respiratory exam: PRESENT: clear to auscultation [place], crackles, retraction, symmetrical. ABSENT: rales, rhonchi, wheezes Cardiovascular exam: PRESENT: RRR. ABSENT: diastolic murmur, rubs, systolic murmur Pulses: PRESENT: normal dorsalis pedis pul Vascular exam: PRESENT: normal capillary refill GI/Abdominal exam: PRESENT: normal bowel sounds, soft. ABSENT: distended, guarding, mass, organolmegaly, rebound, tenderness Rectal exam: PRESENT: deferred Extremities exam: PRESENT: full ROM. ABSENT: calf tenderness, clubbing, pedal edema Neurological exam: PRESENT: alert, awake, oriented to person, oriented to place, oriented to time, oriented to situation, CN II-XII grossly intact. ABSENT: motor sensory deficit Psychiatric exam: PRESENT: appropriate affect, normal mood. ABSENT: homicidal ideation, suicidal ideation Skin exam: PRESENT: dry, intact, warm. ABSENT: cyanosis, rash Results Laboratory Results: 03/01/19 05:44 03/01/19 05:44 02/28/19 02/28/19 02/28/19 21:29 21:29 21:40 WBC 6.4 RBC 2.07 L Hgb 6.5 L Hct 20.1 L MCV 97 D MCH 31.3 MCHC 32.2 RDW 13.5 Plt Count 224 Seg Neutrophils % 66.8 Lymphocytes % 23.0 Monocytes % 6.7 Eosinophils % 2.7 Basophils % 0.8 Absolute Neutrophils 4.3 Absolute Lymphocytes 1.5 Absolute Monocytes 0.4 Absolute Eosinophils 0.2 Absolute Basophils 0.0 Sodium 141.8 Potassium 5.1 H Chloride 108 H Carbon Dioxide 28 Anion Gap 6 BUN 53 H Creatinine 1.30 H Est GFR ( Amer) 48 L Est GFR (Non-Af Amer) 40 L Glucose 190 H Calcium 9.1 Total Bilirubin 0.1 L AST 34 Alkaline Phosphatase 54 Total Protein 6.3 Albumin 3.7 Lipase 179.2 Urine Color Urine Appearance Urine pH Ur Specific [place] Urine Protein Urine Glucose (UA) Urine Ketones Urine Blood Urine Nitrite Ur Leukocyte Esterase Urine WBC (Auto) Urine RBC (Auto) Blood Type A POSITIVE Antibody Screen NEGATIVE 03/01/19 03/01/19 03/01/19 02:23 05:44 05:44 WBC 5.6 RBC 2.61 L Hgb 7.9 L Hct 23.8 L MCV 91 D MCH 30.1 MCHC 33.1 RDW 14.1 H Plt Count 201 Seg Neutrophils % 62.4 Lymphocytes % 26.4 Monocytes % 7.1 Eosinophils % 3.6 Basophils % 0.5 Absolute Neutrophils 3.5 Absolute Lymphocytes 1.5 Absolute Monocytes 0.4 Absolute Eosinophils 0.2 Absolute Basophils 0.0 Sodium 143.4 Potassium 4.6 Chloride 109 H Carbon Dioxide 26 Anion Gap 8 BUN 45 H Creatinine 1.17 Est GFR ( Amer) 55 L Est GFR (Non-Af Amer) 45 L Glucose 115 H Calcium 8.6 Total Bilirubin AST Alkaline Phosphatase Total Protein Albumin Lipase Urine Color YELLOW Urine Appearance CLEAR Urine pH 5.0 Ur Specific Diamond 1.014 Urine Protein NEGATIVE Urine Glucose (UA) >=500 H Urine Ketones NEGATIVE Urine Blood NEGATIVE Urine Nitrite NEGATIVE Ur Leukocyte Esterase TRACE H Urine WBC (Auto) 3 Urine RBC (Auto) 7 Blood Type Antibody Screen 02/28/19 21:29 Troponin I < 0.012 Impressions: Acute Abdomen Series 02/28/19 20:55 IMPRESSION: 1. No acute findings. Assessment and Plan - Diagnosis (1) Acute GI bleeding Is this a current diagnosis for this admission?: Yes Plan: Likely upper given melena with red blood, elevated BUN, history of NSAID use and esophageal dilatations, continue IV Protonix, transfused 2 units of packed red blood cells, follow-up CBC and surgical consult for EGD. (2) Acute on chronic respiratory failure with hypoxemia Is this a current diagnosis for this admission?: Yes Plan: History of obstructive sleep apnea, continue BiPAP (3) Acute post-hemorrhagic anemia Is this a current diagnosis for this admission?: Yes Plan: Transfuse packed red blood cells to maintain hemoglobin greater than 8 - Time Time Spent with patient: 25-34 minutes - Inpatient Certification Medical Necessity: Need Close Monitoring Due to Risk of Patient Decompensation
--- NOTE | 2019-03-01 06:38 | PDOC CONSULTATION ---
Consultation Consult Date: 03/01/19 Attending physician:: DARIEL RESTREPO Provider Consulted: MINA YUAN Consult reason:: GI bleeding History of Present Illness Admission Date/PCP: 02/28/19 22:42 JENNIFER COOPER PA-C History of Present Illness: JAMIE DAN I is a 73 year old female Patient presents emergency department via ground rescue complaining of several day history of dark bloody stools and weakness. Symptoms are similar to those of a GI bleed patient had 3 years ago. Patient at that time underwent upper and lower endoscopy by Dr. Kervin Sierra. 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 Her hemoglobin at that time was 5.5. She received blood transfusions. Post endoscopy she bled and required repeat colonoscopy with cauterization of polypectomy sites. Since that time she has had no further endoscopy or GI bleeds. In the emergency department she was started on blood transfusion, however remained hemodynamically stable. She was transferred to the ICU where she is been monitored overnight, again remaining hemodynamically stable. Surgery was consulted for back-up for possible acute endoscopic intervention. Past Medical History Cardiac Medical History: Reports: Hyperlipidema, Hypertension Pulmonary Medical History: Reports: Chronic Obstructive Pulmonary Disease (COPD), Intubation, Pneumonia Neurological Medical History: Reports: Seizures Endocrine Medical History: Reports: Diabetes Mellitus Type 1 Musculoskeltal Medical History: Reports: Arthritis Psychiatric Medical History: Denies: Depression Traumatic Medical History: Reports: Pneumothorax Past Surgical History Past Surgical History: Reports: Cardiac Catheterization, Cholecystectomy, Hysterectomy, Orthopedic Surgery - knee Social History Lives with: Alone Smoking Status: Former Smoker Frequency of Alcohol Use: None Hx Recreational Drug Use: No Drugs: None Hx Prescription Drug Abuse: No Family History Family History: Reviewed & Not Pertinent Parental Family History Reviewed: Yes Children Family History Reviewed: Yes Sibling(s) Family History Reviewed.: Yes Medication/Allergy Home Medications: Pregabalin [Lyrica 100 mg Capsule] 300 mg PO BID 10/03/11 Tiotropium [place] [Spiriva Handihaler 18 mcg/dose (30 Dose)] 18 mcg IH DAILY 12/12/15 Albuterol Sulfate [Ventolin Hfa] 2 inh IH Q4H PRN 04/29/18 Fluticasone Propionate [Flonase Nasal [place] 50 Mcg/[place] 16 gm] 2 sprays NASL Q12 04/29/18 Folic Acid 1 mg PO DAILY 04/29/18 Insulin Glargine,Hum.rec.anlog [Lantus Solostar] 70 unit SQ QHS 04/29/18 Metoprolol Tartrate [Lopressor 50 mg Tablet] 50 mg PO BID 04/29/18 Omeprazole 20 mg PO DAILY #30 tablet. 04/29/18 Paroxetine HCl 20 mg PO DAILY 04/29/18 Pramipexole Di-HCl [Mirapex] 1 mg PO QHS 04/29/18 Simvastatin 20 mg PO QHS 04/29/18 Telmisartan [Micardis] 80 mg PO DAILY 04/29/18 Furosemide [Lasix 20 mg Tablet] 20 mg PO QAM #10 tablet 02/05/19 Sulfamethoxazole/Trimethoprim [Bactrim Ds Tablet] 1 each PO BID #14 tablet 02/05/19 Allergies/Adverse Reactions: morphine Allergy (Intermediate, Verified 02/05/19 11:29) Erythema Multiforme metformin Adverse Reaction (Verified 02/05/19 11:29) Diarrhea Review of Systems Constitutional: PRESENT: as per HPI Eyes: ABSENT: visual disturbances Ears: ABSENT: hearing changes Gastrointestinal: PRESENT: as per HPI Genitourinary: ABSENT: dysuria, hematuria Neurological: ABSENT: abnormal gait, abnormal speech, confusion, dizziness, focal weakness, syncope Physical Exam Vital Signs: Temp Pulse Resp BP Pulse Ox 97.9 F 76 14 127/47 H 95 03/01/19 04:42 03/01/19 04:42 03/01/19 04:42 03/01/19 04:42 03/01/19 04:42 Intake & Output 02/27/19 02/28/19 03/01/19 06:59 06:59 06:59 Intake Total 1700 Output Total 675 Balance 1025 Weight 108.3 kg General appearance: PRESENT: mild distress, other - Patient is pale. Head exam: PRESENT: normocephalic Eye exam: PRESENT: EOMI Mouth exam: PRESENT: dry mucosa Neck exam: PRESENT: full ROM Respiratory exam: PRESENT: clear to auscultation [place] Cardiovascular exam: PRESENT: RRR Pulses: PRESENT: normal carotid pulses, normal radial pulses, normal femoral pulses GI/Abdominal exam: PRESENT: other - Mildly distended, no peritoneal signs no rigidity Extremities exam: PRESENT: full ROM Musculoskeletal exam: PRESENT: full ROM Neurological exam: PRESENT: oriented to place, oriented to time, oriented to situation. ABSENT: oriented to person Psychiatric exam: PRESENT: appropriate affect Results Laboratory Results: 03/01/19 05:44 03/01/19 05:44 02/28/19 02/28/19 02/28/19 21:29 21:29 21:40 WBC 6.4 RBC 2.07 L Hgb 6.5 L Hct 20.1 L MCV 97 D MCH 31.3 MCHC 32.2 RDW 13.5 Plt Count 224 Seg Neutrophils % 66.8 Lymphocytes % 23.0 Monocytes % 6.7 Eosinophils % 2.7 Basophils % 0.8 Absolute Neutrophils 4.3 Absolute Lymphocytes 1.5 Absolute Monocytes 0.4 Absolute Eosinophils 0.2 Absolute Basophils 0.0 Sodium 141.8 Potassium 5.1 H Chloride 108 H Carbon Dioxide 28 Anion Gap 6 BUN 53 H Creatinine 1.30 H Est GFR ( Amer) 48 L Est GFR (Non-Af Amer) 40 L Glucose 190 H Calcium 9.1 Total Bilirubin 0.1 L AST 34 Alkaline Phosphatase 54 Total Protein 6.3 Albumin 3.7 Lipase 179.2 Urine Color Urine Appearance Urine pH Ur Specific [place] Urine Protein Urine Glucose (UA) Urine Ketones Urine Blood Urine Nitrite Ur Leukocyte Esterase Urine WBC (Auto) Urine RBC (Auto) Blood Type A POSITIVE Antibody Screen NEGATIVE 03/01/19 03/01/19 03/01/19 02:23 05:44 05:44 WBC 5.6 RBC 2.61 L Hgb 7.9 L Hct 23.8 L MCV 91 D MCH 30.1 MCHC 33.1 RDW 14.1 H Plt Count 201 Seg Neutrophils % 62.4 Lymphocytes % 26.4 Monocytes % 7.1 Eosinophils % 3.6 Basophils % 0.5 Absolute Neutrophils 3.5 Absolute Lymphocytes 1.5 Absolute Monocytes 0.4 Absolute Eosinophils 0.2 Absolute Basophils 0.0 Sodium 143.4 Potassium 4.6 Chloride 109 H Carbon Dioxide 26 Anion Gap 8 BUN 45 H Creatinine 1.17 Est GFR ( Amer) 55 L Est GFR (Non-Af Amer) 45 L Glucose 115 H Calcium 8.6 Total Bilirubin AST Alkaline Phosphatase Total Protein Albumin Lipase Urine Color YELLOW Urine Appearance CLEAR Urine pH 5.0 Ur Specific [place] 1.014 Urine Protein NEGATIVE Urine Glucose (UA) >=500 H Urine Ketones NEGATIVE Urine Blood NEGATIVE Urine Nitrite NEGATIVE Ur Leukocyte Esterase TRACE H Urine WBC (Auto) 3 Urine RBC (Auto) 7 Blood Type Antibody Screen 02/28/19 21:29 Troponin I < 0.012 Impressions: Acute Abdomen Series 02/28/19 20:55 IMPRESSION: 1. No acute findings. Status: Imported from PACS Assessment & Plan - Time Time Spent: 30 to 50 Minutes Smoking Cessation Education: 3 to 10 minutes Medications reviewed and adjusted accordingly: Yes Anticipated discharge: Home - Inpatient Certification Based on my medical assessment, after consideration of the patient's comorbidities, presenting symptoms, or acuity I expect that the services needed warrant INPATIENT care.: Yes I certify that my determination is in accordance with my understanding of Medicare's requirements for reasonable and necessary INPATIENT services [42 CFR 412.3e].: Yes Medical Necessity: Need For IV Fluids, Need for Surgery - Plan Summary Plan Summary: Clinical impression: Recurrent gastrointestinal bleed, etiology undetermined; se cond episode in 3 years; hemodynamically stable, requiring blood transfusions, in the intensive care unit. Denies history of trauma, or interval GI bleeds. History of antral gastritis, and multiple tubular adenomas and tubulovillous adenomas of the colon. Multiple chronic medical problems, stable Recommendations: 1. Keep n.p.o. ICU 2. Begin bowel prep; will offer upper and lower endoscopy, by Dr. Oleg Marie, later today, March 01, to be performed under LMAC anesthesia. The tentative plan discussed with the patient, who expressed understanding agrees to proceed.
--- NOTE | 2019-03-01 11:40 | PDOC PROGRESS REPORT ---
Subjective Progress Note for:: 03/01/19 Subjective:: This is 73 years old female patient with past medical history of obesity, hypertension, hyperlipidemia, COPD, seizure disorder, diabetes mellitus, osteoarthritis, history of esophageal stenosis requiring frequent dilatations and lower GI bleeding 3 years ago presented with chief complaint of melanotic stool. At presentation her hemoglobin was found to be 6.5 for which she is transfused 2 units of packed RBC. Patient evaluated by Dr. Marie and he scheduled her for EGD and colonoscopy. Reason For Visit: UPPER GI BLEED ANEMIA Physical Exam Vital Signs: Temp Pulse Resp BP Pulse Ox 97.7 F 71 19 125/54 L 100 03/01/19 10:00 03/01/19 10:00 03/01/19 10:00 03/01/19 10:00 03/01/19 10:00 Intake & Output 02/28/19 03/01/19 03/02/19 06:59 06:59 06:59 Intake Total 1700 Output Total 825 900 Balance 875 -900 Weight 108.3 kg General appearance: PRESENT: no acute distress Head exam: PRESENT: atraumatic Eye exam: PRESENT: conjunctiva pink Neck exam: ABSENT: carotid bruit, JVD, lymphadenopathy, thyromegaly Respiratory exam: PRESENT: clear to auscultation [place]. ABSENT: rales, rhonchi, wheezes Cardiovascular exam: PRESENT: RRR. ABSENT: diastolic murmur, rubs, systolic murmur GI/Abdominal exam: PRESENT: normal bowel sounds, soft. ABSENT: distended, guarding, mass, organolmegaly, rebound, tenderness Neurological exam: PRESENT: alert, awake, oriented to person, oriented to place, oriented to time, oriented to situation Results Laboratory Results: 03/01/19 05:44 03/01/19 05:44 02/28/19 02/28/19 02/28/19 21:29 21:29 21:40 WBC 6.4 RBC 2.07 L Hgb 6.5 L Hct 20.1 L MCV 97 D MCH 31.3 MCHC 32.2 RDW 13.5 Plt Count 224 Seg Neutrophils % 66.8 Lymphocytes % 23.0 Monocytes % 6.7 Eosinophils % 2.7 Basophils % 0.8 Absolute Neutrophils 4.3 Absolute Lymphocytes 1.5 Absolute Monocytes 0.4 Absolute Eosinophils 0.2 Absolute Basophils 0.0 Sodium 141.8 Potassium 5.1 H Chloride 108 H Carbon Dioxide 28 Anion Gap 6 BUN 53 H Creatinine 1.30 H Est GFR ( Amer) 48 L Est GFR (Non-Af Amer) 40 L Glucose 190 H Calcium 9.1 Total Bilirubin 0.1 L AST 34 Alkaline Phosphatase 54 Total Protein 6.3 Albumin 3.7 Lipase 179.2 Urine Color Urine Appearance Urine pH Ur Specific [place] Urine Protein Urine Glucose (UA) Urine Ketones Urine Blood Urine Nitrite Ur Leukocyte Esterase Urine WBC (Auto) Urine RBC (Auto) Blood Type A POSITIVE Antibody Screen NEGATIVE 03/01/19 03/01/19 03/01/19 02:23 05:44 05:44 WBC 5.6 RBC 2.61 L Hgb 7.9 L Hct 23.8 L MCV 91 D MCH 30.1 MCHC 33.1 RDW 14.1 H Plt Count 201 Seg Neutrophils % 62.4 Lymphocytes % 26.4 Monocytes % 7.1 Eosinophils % 3.6 Basophils % 0.5 Absolute Neutrophils 3.5 Absolute Lymphocytes 1.5 Absolute Monocytes 0.4 Absolute Eosinophils 0.2 Absolute Basophils 0.0 Sodium 143.4 Potassium 4.6 Chloride 109 H Carbon Dioxide 26 Anion Gap 8 BUN 45 H Creatinine 1.17 Est GFR ( Amer) 55 L Est GFR (Non-Af Amer) 45 L Glucose 115 H Calcium 8.6 Total Bilirubin AST Alkaline Phosphatase Total Protein Albumin Lipase Urine Color YELLOW Urine Appearance CLEAR Urine pH 5.0 Ur Specific [place] 1.014 Urine Protein NEGATIVE Urine Glucose (UA) >=500 H Urine Ketones NEGATIVE Urine Blood NEGATIVE Urine Nitrite NEGATIVE Ur Leukocyte Esterase TRACE H Urine WBC (Auto) 3 Urine RBC (Auto) 7 Blood Type Antibody Screen 02/28/19 21:29 Troponin I < 0.012 Impressions: Acute Abdomen Series 02/28/19 20:55 IMPRESSION: 1. No acute findings. Assessment and Plan - Diagnosis (1) Acute blood loss anemia due to GI bleed Is this a current diagnosis for this admission?: Yes Plan: Status post 2 units of packed RBC transfusion. Patient scheduled to have EGD and colonoscopy today. (2) Hypertension Qualifiers: Hypertension type: essential hypertension Qualified Code(s): I10 - Essential (primary) hypertension Is this a current diagnosis for this admission?: Yes Plan: Continue home medication (3) COPD (chronic obstructive pulmonary disease) Qualifiers: Emphysema type: unspecified Is this a current diagnosis for this admission?: Yes Plan: Continue PRN bronchodilators (4) Hyperlipidemia Qualifiers: Hyperlipidemia type: unspecified Qualified Code(s): E78.5 - Hyperlipidemia, unspecified Is this a current diagnosis for this admission?: Yes Plan: Continue home medication.
[2019-03-01 13:01] LABS: ABSOLUTE BASOPHILS # (AUTO) 0.1 10^3/uL (0.0-0.2); ABSOLUTE EOSINOPHILS # (AUTO) 0.2 10^3/uL (0.0-0.6); ABSOLUTE LYMPHOCYTES (AUTO) 1.2 10^3/uL (0.5-4.7); ABSOLUTE MONOCYTES (AUTO) 0.4 10^3/uL (0.1-1.4); ABSOLUTE NEUT (AUTO) 4.3 10^3/uL (1.7-8.2); BASOPHILS % (AUTO) 1.1 % (0-2); HEMATOCRIT 24.6 % (36.0-47.0); HEMOGLOBIN 8.2 g/dL (12.0-15.5); LYMPHOCYTES % (AUTO) 20.2 % (13-45); MEAN CORPUSCULAR HEMOGLOBIN 30.4 pg (27.0-33.4); MEAN CORPUSCULAR HGB CONC 33.5 g/dL (32.0-36.0); MEAN CORPUSCULAR VOLUME 91 fl (80-97); MONOCYTES % (AUTO) 5.9 % (3-13); PLATELET COUNT 186 10^3/uL (150-450); RED CELL DISTRIBUTION WIDTH 14.6 % (11.5-14.0); SEGMENTED NEUTROPHILS % (AUTO) 69.8 % (42-78); TOTAL CELLS COUNTED % (AUTO) 100 %; WHITE BLOOD COUNT 6.1 10^3/uL (4.0-10.5)
[2019-03-01] MEDS ORDERED: GLUCAGON,HUMAN RECOMB 1 MG INJ SUBCUT PRN (17:06)
[2019-03-01] MEDS ORDERED: DEXTROSE 50%-WATER 25 GM/50 ML DISP.SYRIN IV PRN ×2 (17:06)
[2019-03-01] MEDS ORDERED: DEXTROSE 40% GEL 15 GM TUBE PO PRN ×2 (17:06)
[2019-03-01 18:24] LABS: ABSOLUTE BASOPHILS # (AUTO) 0.1 10^3/uL (0.0-0.2); ABSOLUTE EOSINOPHILS # (AUTO) 0.2 10^3/uL (0.0-0.6); ABSOLUTE MONOCYTES (AUTO) 0.3 10^3/uL (0.1-1.4); ABSOLUTE NEUT (AUTO) 3.6 10^3/uL (1.7-8.2); LYMPHOCYTES % (AUTO) 20.1 % (13-45); MEAN CORPUSCULAR HEMOGLOBIN 30.3 pg (27.0-33.4); MEAN CORPUSCULAR HGB CONC 33.4 g/dL (32.0-36.0); MEAN CORPUSCULAR VOLUME 91 fl (80-97); MONOCYTES % (AUTO) 5.7 % (3-13); PLATELET COUNT 181 10^3/uL (150-450); RED BLOOD COUNT 2.53 10^6/uL (3.72-5.28); RED CELL DISTRIBUTION WIDTH 14.4 % (11.5-14.0); SEGMENTED NEUTROPHILS % (AUTO) 70.2 % (42-78); TOTAL CELLS COUNTED % (AUTO) 100 %; WHITE BLOOD COUNT 5.1 10^3/uL (4.0-10.5)
[2019-03-01 18:25] LABS: HEMOGLOBIN 7.7 g/dL (12.0-15.5)
--- NOTE | 2019-03-01 23:55 | Progress Note ---
Provider Note Provider Note: pt unable to complete her bowel prep for colonoscopy [will plan on scope tomorrow if she finishes her prep.
[2019-03-02 00:50] LABS: ABSOLUTE EOSINOPHILS # (AUTO) 0.2 10^3/uL (0.0-0.6); ABSOLUTE LYMPHOCYTES (AUTO) 1.2 10^3/uL (0.5-4.7); ABSOLUTE MONOCYTES (AUTO) 0.3 10^3/uL (0.1-1.4); ABSOLUTE NEUT (AUTO) 3.6 10^3/uL (1.7-8.2); BASOPHILS % (AUTO) 0.7 % (0-2); EOSINOPHILS % (AUTO) 3.9 % (0-6); HEMATOCRIT 21.4 % (36.0-47.0); LYMPHOCYTES % (AUTO) 21.8 % (13-45); MEAN CORPUSCULAR HEMOGLOBIN 29.8 pg (27.0-33.4); MEAN CORPUSCULAR HGB CONC 33.2 g/dL (32.0-36.0); MEAN CORPUSCULAR VOLUME 90 fl (80-97); MONOCYTES % (AUTO) 6.5 % (3-13); PLATELET COUNT 169 10^3/uL (150-450); RED BLOOD COUNT 2.38 10^6/uL (3.72-5.28); RED CELL DISTRIBUTION WIDTH 14.4 % (11.5-14.0); SEGMENTED NEUTROPHILS % (AUTO) 67.1 % (42-78); TOTAL CELLS COUNTED % (AUTO) 100 %; WHITE BLOOD COUNT 5.3 10^3/uL (4.0-10.5)
[2019-03-02 00:51] LABS: HEMOGLOBIN 7.1 g/dL (12.0-15.5)
[2019-03-02 04:28] LABS: ABSOLUTE EOSINOPHILS # (AUTO) 0.2 10^3/uL (0.0-0.6); ABSOLUTE LYMPHOCYTES (AUTO) 1.2 10^3/uL (0.5-4.7); ABSOLUTE MONOCYTES (AUTO) 0.4 10^3/uL (0.1-1.4); BASOPHILS % (AUTO) 0.9 % (0-2); EOSINOPHILS % (AUTO) 3.4 % (0-6); HEMATOCRIT 22.6 % (36.0-47.0); MEAN CORPUSCULAR HEMOGLOBIN 30.3 pg (27.0-33.4); MEAN CORPUSCULAR HGB CONC 33.4 g/dL (32.0-36.0); MEAN CORPUSCULAR VOLUME 91 fl (80-97); MONOCYTES % (AUTO) 6.3 % (3-13); PLATELET COUNT 196 10^3/uL (150-450); RED BLOOD COUNT 2.49 10^6/uL (3.72-5.28); RED CELL DISTRIBUTION WIDTH 14.5 % (11.5-14.0); SEGMENTED NEUTROPHILS % (AUTO) 68.4 % (42-78); TOTAL CELLS COUNTED % (AUTO) 100 %; WHITE BLOOD COUNT 5.8 10^3/uL (4.0-10.5)
[2019-03-02 04:30] LABS: HEMOGLOBIN 7.6 g/dL (12.0-15.5)
[2019-03-02 04:59] LABS: CALCIUM 8.5 mg/dL (8.4-10.2); GLUCOSE 131 mg/dL (75-110); POTASSIUM 4.3 mmol/L (3.6-5.0)
[2019-03-02 05:05] LABS: CARBON DIOXIDE 28 mmol/L (22-30); CHLORIDE 108 mmol/L (98-107)
[2019-03-02 05:43] LABS: BLOOD UREA NITROGEN 18 mg/dL (7-20)
[2019-03-02 05:45] LABS: ANION GAP 4 (5-19)
[2019-03-02] MEDS: NORMAL SALINE 100 ML with PANTOPRAZOLE SODIUM 80 MG IV PRN ×4 (08:01→22:47)
[2019-03-02 08:27] LABS: ALBUMIN 3.2 g/dL (3.5-5.0); ALKALINE PHOSPHATASE 45 U/L (38-126); ANION GAP 8 (5-19); ASPARTATE AMINO TRANSFERASE 34 U/L (14-36); BILIRUBIN,DIRECT 0.2 mg/dL (0.0-0.4); BILIRUBIN,TOTAL 0.2 mg/dL (0.2-1.3); BLOOD UREA NITROGEN 20 mg/dL (7-20); CALCIUM 8.6 mg/dL (8.4-10.2); CARBON DIOXIDE 26 mmol/L (22-30); CHLORIDE 108 mmol/L (98-107); GLUCOSE 148 mg/dL (75-110); POTASSIUM 4.5 mmol/L (3.6-5.0); TOTAL PROTEIN 5.7 g/dL (6.3-8.2)
[2019-03-02] MEDS ORDERED: NORMAL SALINE 250 ML IV PRN ×2 (09:13)
--- NOTE | 2019-03-02 09:18 | PDOC PROGRESS REPORT ---
Subjective Progress Note for:: 03/02/19 Subjective:: 73 year old female with a past medical history of a esophageal stenosis requiring frequent dilatations, lower GI bleed, hypertension, obstructive sleep apnea, interstitial lung disease, diabetes and depression. She presents with several days of black stools that became red developing generalized weakness and lightheadedness. In the emergency room she is found to have heme positive stool and a hemoglobin of 6.5. She denies abdominal pain, blood thinner use but has recently used aspirin, she is ordered 2 units of packed red blood cells and referred to the hospitalist for admission. 03/02/20192620-06-ciuj-old female with history of esophageal stenosis and frequent dilatations, history of lower GI bleed, hypertension diabetes, sleep apnea admitted with melanotic stools hemoglobin at the time of admission is 6.5 she received 2 units of blood transfusion hemoglobin came up to 7.6 today. We are going to request for 1 unit of PRBC and to keep it on hold. Patient is going for colonoscopy today. Still having the bright-colored blood in the stool. Reason For Visit: UPPER GI BLEED ANEMIA Physical Exam Vital Signs: Temp Pulse Resp BP Pulse Ox 98.4 F 74 19 128/45 H 99 03/02/19 08:00 03/02/19 08:00 03/02/19 08:00 03/02/19 08:00 03/02/19 08:00 Intake & Output 03/01/19 03/02/19 03/03/19 06:59 06:59 06:59 Intake Total 1700 Output Total 825 4040 0 Balance 875 -4040 0 Weight 108.3 kg 108.2 kg General appearance: PRESENT: no acute distress Head exam: PRESENT: atraumatic Eye exam: PRESENT: PERRLA Mouth exam: PRESENT: moist, tongue midline Neck exam: PRESENT: carotid bruit Respiratory exam: PRESENT: decreased breath sounds Cardiovascular exam: PRESENT: RRR. ABSENT: diastolic murmur, rubs, systolic murmur GI/Abdominal exam: PRESENT: normal bowel sounds, soft. ABSENT: distended, guarding, mass, organolmegaly, rebound, tenderness Rectal exam: PRESENT: deferred Extremities exam: PRESENT: full ROM. ABSENT: calf tenderness, clubbing, pedal edema Neurological exam: PRESENT: alert, awake, oriented to person, oriented to place, oriented to time, oriented to situation, CN II-XII grossly intact. ABSENT: motor sensory deficit Psychiatric exam: PRESENT: appropriate affect, normal mood. ABSENT: homicidal ideation, suicidal ideation Results Laboratory Results: 03/02/19 04:16 03/02/19 07:59 02/28/19 03/01/19 03/01/19 21:29 12:08 12:54 WBC Cancelled 6.1 RBC Cancelled 2.70 L Hgb Cancelled 8.2 L Hct Cancelled 24.6 L MCV 97 D Cancelled 91 MCH Cancelled 30.4 MCHC Cancelled 33.5 RDW Cancelled 14.6 H Plt Count Cancelled 186 Seg Neutrophils % Cancelled 69.8 Lymphocytes % Cancelled 20.2 Monocytes % Cancelled 5.9 Eosinophils % Cancelled 3.0 Basophils % Cancelled 1.1 Absolute Neutrophils Cancelled 4.3 Absolute Lymphocytes Cancelled 1.2 Absolute Monocytes Cancelled 0.4 Absolute Eosinophils Cancelled 0.2 Absolute Basophils Cancelled 0.1 Sodium Potassium Chloride Carbon Dioxide Anion Gap BUN Creatinine Est GFR ( Amer) Est GFR (Non-Af Amer) Glucose Calcium Magnesium Total Bilirubin AST Alkaline Phosphatase Total Protein Albumin 03/01/19 03/02/19 03/02/19 18:05 00:40 04:16 WBC 5.1 5.3 RBC 2.53 L 2.38 L Hgb 7.7 L 7.1 L Hct 23.0 L 21.4 L MCV 91 90 MCH 30.3 29.8 MCHC 33.4 33.2 RDW 14.4 H 14.4 H Plt Count 181 169 Seg Neutrophils % 70.2 67.1 Lymphocytes % 20.1 21.8 Monocytes % 5.7 6.5 Eosinophils % 3.0 3.9 Basophils % 1.0 0.7 Absolute Neutrophils 3.6 3.6 Absolute Lymphocytes 1.0 1.2 Absolute Monocytes 0.3 0.3 Absolute Eosinophils 0.2 0.2 Absolute Basophils 0.1 0.0 Sodium 140.4 Potassium 4.3 Chloride 108 H Carbon Dioxide 28 Anion Gap 4 L BUN 18 D Creatinine 1.01 Est GFR ( Amer) > 60 Est GFR (Non-Af Amer) 53 L Glucose 131 H Calcium 8.5 Magnesium Total Bilirubin AST Alkaline Phosphatase Total Protein Albumin 03/02/19 03/02/19 04:16 07:59 WBC 5.8 RBC 2.49 L Hgb 7.6 L Hct 22.6 L MCV 91 MCH 30.3 MCHC 33.4 RDW 14.5 H Plt Count 196 Seg Neutrophils % 68.4 Lymphocytes % 21.0 Monocytes % 6.3 Eosinophils % 3.4 Basophils % 0.9 Absolute Neutrophils 4.0 Absolute Lymphocytes 1.2 Absolute Monocytes 0.4 Absolute Eosinophils 0.2 Absolute Basophils 0.0 Sodium 141.5 Potassium 4.5 Chloride 108 H Carbon Dioxide 26 Anion Gap 8 BUN 20 Creatinine 0.98 Est GFR ( Amer) > 60 Est GFR (Non-Af Amer) 55 L Glucose 148 H Calcium 8.6 Magnesium 2.0 Total Bilirubin 0.2 AST 34 Alkaline Phosphatase 45 Total Protein 5.7 L Albumin 3.2 L 02/28/19 21:29 Troponin I < 0.012 Impressions: Acute Abdomen Series 02/28/19 20:55 IMPRESSION: 1. No acute findings. Assessment and Plan - Diagnosis (1) Acute GI bleeding Is this a current diagnosis for this admission?: Yes Plan: Likely upper given melena with red blood, elevated BUN, history of NSAID use and esophageal dilatations, continue IV Protonix, transfused 2 units of packed red blood cells, follow-up CBC and surgical consult for EGD. 03/02/2019-after 2 units of PRBC transfusion hemoglobin came up to 7.6 from 6.5. Patient has history of NSAID use. Presently on IV Protonix drip. She is going for colonoscopy today. (2) Hypertension Qualifiers: Hypertension type: essential hypertension Qualified Code(s): I10 - Essential (primary) hypertension Is this a current diagnosis for this admission?: Yes Plan: Continue home medication 03/02/2019-patient blood pressure today is 128/65. Stable. (3) Obstructive sleep apnea on CPAP Is this a current diagnosis for this admission?: No Plan: 03/02/2019-patient has history of obstructive sleep apnea on CPAP at home plan is to continue the management here. (4) Obesity (BMI 30-39.9) Is this a current diagnosis for this admission?: No Plan: 03/02/2019-patient BMI is more than 37 diet exercise weight loss lifestyle modifications are discussed with the patient. Dietary consult will be requested. - Time Time Spent with patient: 15-24 minutes Medications reviewed and adjusted accordingly: Yes Anticipated discharge: Home
[2019-03-02] MEDS ORDERED: PROPOFOL INJ 200 MG/20 ML VIAL IV ONE ×2 (12:30→14:13)
--- NOTE | 2019-03-02 12:32 | PDOC PROGRESS REPORT ---
Subjective Progress Note for:: 03/02/19 Subjective:: 73 y/o F with GI bleeding of unknown source. The pt finshed her boewl prep, and continues to have loose stools. She denies CP, SOB, F/C, N/V. She does report cramping abdominal pain, fatigue, and malaise. Reason For Visit: UPPER GI BLEED ANEMIA Physical Exam Vital Signs: Temp Pulse Resp BP Pulse Ox 98.8 F 78 19 143/59 H 95 03/02/19 12:00 03/02/19 12:00 03/02/19 12:00 03/02/19 12:00 03/02/19 12:00 Intake & Output 03/01/19 03/02/19 03/03/19 06:59 06:59 06:59 Intake Total 1700 Output Total 825 4040 500 Balance 875 -4040 -500 Weight 108.3 kg 108.2 kg General appearance: PRESENT: obese, other - elderly Eye exam: PRESENT: EOMI, PERRLA Mouth exam: PRESENT: moist, neck supple Neck exam: ABSENT: meningismus, tenderness, thyromegaly, tracheal deviation Respiratory exam: PRESENT: unlabored. ABSENT: tachypnea, wheezes Cardiovascular exam: PRESENT: RRR Pulses: PRESENT: normal radial pulses Vascular exam: PRESENT: pallor. ABSENT: normal capillary refill GI/Abdominal exam: PRESENT: soft. ABSENT: distended, rigid, tenderness Rectal exam: PRESENT: deferred Extremities exam: ABSENT: clubbing Musculoskeletal exam: ABSENT: deformity Neurological exam: PRESENT: alert, awake, oriented to person, oriented to place, oriented to time, oriented to situation Psychiatric exam: ABSENT: agitated, anxious, depressed Skin exam: ABSENT: cyanosis, erythema, jaundice Results Laboratory Results: 03/02/19 04:16 03/02/19 07:59 02/28/19 02/28/19 03/01/19 21:29 21:40 12:08 WBC Cancelled RBC Cancelled Hgb Cancelled Hct Cancelled MCV 97 D Cancelled MCH Cancelled MCHC Cancelled RDW Cancelled Plt Count Cancelled Seg Neutrophils % Cancelled Lymphocytes % Cancelled Monocytes % Cancelled Eosinophils % Cancelled Basophils % Cancelled Absolute Neutrophils Cancelled Absolute Lymphocytes Cancelled Absolute Monocytes Cancelled Absolute Eosinophils Cancelled Absolute Basophils Cancelled Sodium Potassium Chloride Carbon Dioxide Anion Gap BUN Creatinine Est GFR ( Amer) Est GFR (Non-Af Amer) Glucose Calcium Magnesium Total Bilirubin AST Alkaline Phosphatase Total Protein Albumin Blood Type A POSITIVE Antibody Screen NEGATIVE 03/01/19 03/01/19 03/02/19 12:54 18:05 00:40 WBC 6.1 5.1 5.3 RBC 2.70 L 2.53 L 2.38 L Hgb 8.2 L 7.7 L 7.1 L Hct 24.6 L 23.0 L 21.4 L MCV 91 91 90 MCH 30.4 30.3 29.8 MCHC 33.5 33.4 33.2 RDW 14.6 H 14.4 H 14.4 H Plt Count 186 181 169 Seg Neutrophils % 69.8 70.2 67.1 Lymphocytes % 20.2 20.1 21.8 Monocytes % 5.9 5.7 6.5 Eosinophils % 3.0 3.0 3.9 Basophils % 1.1 1.0 0.7 Absolute Neutrophils 4.3 3.6 3.6 Absolute Lymphocytes 1.2 1.0 1.2 Absolute Monocytes 0.4 0.3 0.3 Absolute Eosinophils 0.2 0.2 0.2 Absolute Basophils 0.1 0.1 0.0 Sodium Potassium Chloride Carbon Dioxide Anion Gap BUN Creatinine Est GFR ( Amer) Est GFR (Non-Af Amer) Glucose Calcium Magnesium Total Bilirubin AST Alkaline Phosphatase Total Protein Albumin Blood Type Antibody Screen 03/02/19 03/02/19 03/02/19 04:16 04:16 07:59 WBC 5.8 RBC 2.49 L Hgb 7.6 L Hct 22.6 L MCV 91 MCH 30.3 MCHC 33.4 RDW 14.5 H Plt Count 196 Seg Neutrophils % 68.4 Lymphocytes % 21.0 Monocytes % 6.3 Eosinophils % 3.4 Basophils % 0.9 Absolute Neutrophils 4.0 Absolute Lymphocytes 1.2 Absolute Monocytes 0.4 Absolute Eosinophils 0.2 Absolute Basophils 0.0 Sodium 140.4 141.5 Potassium 4.3 4.5 Chloride 108 H 108 H Carbon Dioxide 28 26 Anion Gap 4 L 8 BUN 18 D 20 Creatinine 1.01 0.98 Est GFR ( Amer) > 60 > 60 Est GFR (Non-Af Amer) 53 L 55 L Glucose 131 H 148 H Calcium 8.5 8.6 Magnesium 2.0 Total Bilirubin 0.2 AST 34 Alkaline Phosphatase 45 Total Protein 5.7 L Albumin 3.2 L Blood Type Antibody Screen 02/28/19 21:29 Troponin I < 0.012 Impressions: Acute Abdomen Series 02/28/19 20:55 IMPRESSION: 1. No acute findings. Assessment & Plan - Diagnosis (1) Acute GI bleeding Is this a current diagnosis for this admission?: Yes - Plan Summary Plan Summary: 73 y/o F with GI bleeding of unknown source. Plan for EGD and colonoscopy today. Risks/benefits discussed, informed consent obtained, and all questions answered.
[2019-03-02] MEDS ORDERED: LIDOCAINE 0.5% INJ-PF (5 MG/ML) 50 ML SDV ONE (12:35)
[2019-03-02] MEDS ORDERED: MEPERIDINE HCL/PF INJ 25 MG/1 ML DISP.SYRIN IV PRN (12:39)
[2019-03-02] MEDS ORDERED: PROMETHAZINE HCL INJ 25 MG/1 ML VIAL IV PRN ×2 (12:39)
[2019-03-02] MEDS ORDERED: DIPHENHYDRAMINE HCL 50 MG/ML VIAL IV PRN (12:39)
[2019-03-02] MEDS ORDERED: FENTANYL CITRATE INJ/PF 100 MCG/2 ML AMPUL IV PRN ×3 (12:39)
[2019-03-02] MEDS ORDERED: MIDAZOLAM 2 MG/2 ML INJ ONE (12:52)
--- NOTE | 2019-03-02 16:07 | Operative Report ---
Nonrecallable Operative Report DATE OF SURGERY: 03/02/19 PREOPERATIVE DIAGNOSIS: GI bleeding, unknown source. POSTOPERATIVE DIAGNOSIS: 1. Severe gastritis with shallow gastric ulcerations. 2. Mild duodenitis. 3. Pedunculated lesion of the gastric cardia, status post biopsy. 4. Large amount of old blood throughout the colon, without obvious bleeding source. 5. No active bleeding identified on upper or lower endoscopy. OPERATION: 1. EGD with biopsy. 2. Resolution clip placement x2 in the stomach. 3. Colonoscopy to the cecum. 4. Snare polypectomy x2. SURGEON: JUAN DANIEL COPELAND ANESTHESIA: LMAC TISSUE REMOVED OR ALTERED: 1. Antral ulcer biopsy. 2. Lesion in the gastric cardia. 3. Colon polyp at 60 cm. 4 colon polyp at 50 cm. COMPLICATIONS: Poor prep ESTIMATED BLOOD LOSS: Large amount of old blood in the colon. PROCEDURE: Drains/implants: Resolution clip x2 at pedunculated fold of mucosa in the cardia of the stomach. Procedure in detail: After informed consent was obtained, the patient was brought to the operating room and laid in the left lateral decubitus position. The endoscope was passed down the oropharynx, down the esophagus, and into the stomach. The stomach was insufflated with air. Immediately there was noted to be severe gastritis throughout the stomach. There were multiple shallow gastric ulcerations in the antrum. Biopsy was taken in the antrum, at 1 of the most affected portions. There was no active bleeding identified. There were no visible vessels, or deep ulcerations. The scope was pushed into the first and second portions of the duodenum. The first portion of the duodenum appeared slightly inflamed, however the second portion of the duodenum appeared normal. The scope was pulled back into the gastric body, where a retroflexion maneuver was performed. There was an abnormal appearing fold of pedunculated tissue in the cardia of the stomach. It did not appear vascular, it did not appear adenomatous. A cold biopsy was taken. Small amount of bleeding was noted from the biopsied area. Resolution clip x2 was used to magnus the area, as well as halt any bleeding. Once this was completed, the scope was straightened, and pulled up the esophagus. The distal esophagus was without significant erosion or ulceration. There was no bleeding in the distal esophagus. The scope was pulled up the remainder of the esophagus. There were no masses, lesions, ulcerations, or varices. The scope was pulled out of the oropharynx, and this portion of the procedure was concluded. Attention was then turned to the colonoscopy. The colonoscope was inserted into the rectum. It was passed up the rectum, sigmoid colon, descending colon, across the transverse colon, down the ascending colon, and into the cecum. There was a large amount of old blood within the colon, requiring greater than 1 L of irrigation to visualize the mucosa. Please note that the colon was incredibly tortuous, and the examination was difficult. Once the cecum was reached, the ileocecal valve and appendiceal orifice were identified. The scope was then withdrawn, circumferentially noting the mucosa. The prep was poor. There was a large amount of blood in the colon, requiring large amounts of irrigation. The scope was pulled back past the ascending colon, transverse colon, and down the descending colon. At 60 cm and 50 cm, 2 separate pedunculated polyps were identified. These were removed via snare polypectomy. The scope was withdrawn down the remainder of the descending colon, sigmoid colon, and into the rectum. Retroflexion maneuver was performed in the rectum, noting no significant internal hemorrhoids. The scope was straightened, air was suctioned from the rectum, the scope was then removed, and the procedure was concluded. There was no active bleeding identified throughout the colonoscopy. There was old blood throughout the entirety of the colon, including within the cecum. This is suggestive of (although not diagnostic of) an upper GI source, or possibly proximal colon. Again, no active bleeding was identified on either EGD or colonoscopy. Complications: none apparent. Condition: fair.
[2019-03-02 16:25] LABS: ABSOLUTE BASOPHILS # (AUTO) 0.1 10^3/uL (0.0-0.2); ABSOLUTE EOSINOPHILS # (AUTO) 0.1 10^3/uL (0.0-0.6); ABSOLUTE MONOCYTES (AUTO) 0.5 10^3/uL (0.1-1.4); ABSOLUTE NEUT (AUTO) 7.4 10^3/uL (1.7-8.2); BASOPHILS % (AUTO) 0.7 % (0-2); EOSINOPHILS % (AUTO) 0.9 % (0-6); HEMATOCRIT 23.9 % (36.0-47.0); LYMPHOCYTES % (AUTO) 10.7 % (13-45); MEAN CORPUSCULAR HGB CONC 32.8 g/dL (32.0-36.0); MEAN CORPUSCULAR VOLUME 92 fl (80-97); MONOCYTES % (AUTO) 5.9 % (3-13); PLATELET COUNT 185 10^3/uL (150-450); RED BLOOD COUNT 2.62 10^6/uL (3.72-5.28); RED CELL DISTRIBUTION WIDTH 14.5 % (11.5-14.0); SEGMENTED NEUTROPHILS % (AUTO) 81.8 % (42-78); TOTAL CELLS COUNTED % (AUTO) 100 %
[2019-03-02 16:27] LABS: HEMOGLOBIN 7.8 g/dL (12.0-15.5)
[2019-03-02] MEDS ORDERED: NITROGLYCERIN 0.4 MG/TAB 25 TAB/BOTTLE SL PRN (17:09)
[2019-03-02] MEDS ORDERED: MAGNESIUM OXIDE 400 MG TABLET PO PRN (17:09)
[2019-03-02] MEDS: SIMVASTATIN 40 MG TABLET PO SCH (17:52)
[2019-03-02] MEDS: PRAMIPEXOLE DI-HCL 0.5 MG TABLET PO SCH (21:00)
[2019-03-02] MEDS: PREGABALIN 100 MG CAPSULE PO SCH (21:06)
[2019-03-02] MEDS: FENOFIBRATE NANOCRYSTALLIZED 145 MG TABLET PO SCH (21:06)
[2019-03-02] MEDS ORDERED: PREGABALIN 100 MG CAPSULE PO SCH (22:00)
[2019-03-02] MEDS ORDERED: FENOFIBRATE NANOCRYSTALLIZED 145 MG TABLET PO SCH (22:00)
[2019-03-02] MEDS ORDERED: (PENDING PHARMACY ID) (Pramipexole Di-Hcl [Pramipexole Dihydrochloride] 1.5 MG) PO SCH (22:00)
[2019-03-02] MEDS ORDERED: PRAMIPEXOLE DI-HCL 0.5 MG TABLET PO SCH (22:00)
[2019-03-02] MEDS ORDERED: (PENDING PHARMACY ID) (Fenofibric Acid (Choline) [Fenofibric Acid] 135 MG) PO SCH (22:00)
[2019-03-03 04:58] LABS: ABSOLUTE EOSINOPHILS # (AUTO) 0.1 10^3/uL (0.0-0.6); ABSOLUTE LYMPHOCYTES (AUTO) 1.3 10^3/uL (0.5-4.7); ABSOLUTE MONOCYTES (AUTO) 0.4 10^3/uL (0.1-1.4); ABSOLUTE NEUT (AUTO) 4.9 10^3/uL (1.7-8.2); BASOPHILS % (AUTO) 0.7 % (0-2); EOSINOPHILS % (AUTO) 1.9 % (0-6); HEMATOCRIT 22.5 % (36.0-47.0); LYMPHOCYTES % (AUTO) 19.2 % (13-45); MEAN CORPUSCULAR HEMOGLOBIN 29.4 pg (27.0-33.4); MEAN CORPUSCULAR HGB CONC 32.4 g/dL (32.0-36.0); MEAN CORPUSCULAR VOLUME 91 fl (80-97); MONOCYTES % (AUTO) 5.8 % (3-13); PLATELET COUNT 198 10^3/uL (150-450); RED BLOOD COUNT 2.48 10^6/uL (3.72-5.28); RED CELL DISTRIBUTION WIDTH 14.2 % (11.5-14.0); SEGMENTED NEUTROPHILS % (AUTO) 72.4 % (42-78); TOTAL CELLS COUNTED % (AUTO) 100 %; WHITE BLOOD COUNT 6.8 10^3/uL (4.0-10.5)
[2019-03-03 05:05] LABS: HEMOGLOBIN 7.3 g/dL (12.0-15.5)
[2019-03-03 05:16] LABS: ANION GAP 6 (5-19); BLOOD UREA NITROGEN 15 mg/dL (7-20); CALCIUM 8.7 mg/dL (8.4-10.2); CARBON DIOXIDE 25 mmol/L (22-30); CHLORIDE 109 mmol/L (98-107); GLUCOSE 141 mg/dL (75-110); POTASSIUM 4.1 mmol/L (3.6-5.0)
[2019-03-03] MEDS: PREGABALIN 100 MG CAPSULE PO SCH ×2 (08:21→21:09)
--- NOTE | 2019-03-03 08:36 | PDOC PROGRESS REPORT ---
Subjective Progress Note for:: 03/03/19 Subjective:: 73 year old female with a past medical history of a esophageal stenosis requiring frequent dilatations, lower GI bleed, hypertension, obstructive sleep apnea, interstitial lung disease, diabetes and depression. She presents with several days of black stools that became red developing generalized weakness and lightheadedness. In the emergency room she is found to have heme positive stool and a hemoglobin of 6.5. She denies abdominal pain, blood thinner use but has recently used aspirin, she is ordered 2 units of packed red blood cells and referred to the hospitalist for admission. 03/[id number]-eojc-old female admitted with a lower GI bleed status post EGD and colonoscopy was done latest hemoglobin is 7.3 as per surgical recommendations blood transfusion is on hold because the recommendation is to give blood transfusion if the hemoglobin drops less than 7. Patient is comfortable in the bed communicating well not in distress expressing desire to eat regular food. Presently she is on Jell-O. Patient can go to [facility]. Reason For Visit: UPPER GI BLEED ANEMIA Physical Exam Vital Signs: Temp Pulse Resp BP Pulse Ox 99.1 F 86 21 H 101/33 L 99 03/03/19 05:41 03/02/19 20:00 03/03/19 06:00 03/03/19 05:19 03/03/19 06:00 Intake & Output 03/02/19 03/03/19 03/04/19 06:59 06:59 06:59 Intake Total 1000 Output Total 4040 2105 Balance -4040 -1105 Weight 108.2 kg 104.4 kg General appearance: PRESENT: no acute distress, cooperative, obese Head exam: PRESENT: atraumatic Eye exam: PRESENT: PERRLA Mouth exam: PRESENT: moist, tongue midline Teeth exam: PRESENT: poor dentation Neck exam: ABSENT: carotid bruit, JVD, lymphadenopathy, thyromegaly Respiratory exam: PRESENT: clear to auscultation [place]. ABSENT: rales, rhonchi, wheezes Cardiovascular exam: PRESENT: RRR. ABSENT: diastolic murmur, rubs, systolic murmur GI/Abdominal exam: PRESENT: normal bowel sounds, soft. ABSENT: distended, guarding, mass, organolmegaly, rebound, tenderness Rectal exam: PRESENT: deferred Extremities exam: PRESENT: full ROM. ABSENT: calf tenderness, clubbing, pedal edema Neurological exam: PRESENT: alert, awake, oriented to person, oriented to place, oriented to time, oriented to situation, CN II-XII grossly intact. ABSENT: motor sensory deficit Psychiatric exam: PRESENT: appropriate affect, normal mood. ABSENT: homicidal ideation, suicidal ideation Results Laboratory Results: 03/03/19 04:48 03/03/19 04:48 02/28/19 02/28/19 03/02/19 21:29 21:40 07:59 WBC RBC Hgb Hct MCV 97 D MCH MCHC RDW Plt Count Seg Neutrophils % Lymphocytes % Monocytes % Eosinophils % Basophils % Absolute Neutrophils Absolute Lymphocytes Absolute Monocytes Absolute Eosinophils Absolute Basophils Sodium 141.5 Potassium 4.5 Chloride 108 H Carbon Dioxide 26 Anion Gap 8 BUN 20 Creatinine 0.98 Est GFR ( Amer) > 60 Est GFR (Non-Af Amer) 55 L Glucose 148 H Calcium 8.6 Magnesium 2.0 Total Bilirubin 0.2 AST 34 Alkaline Phosphatase 45 Total Protein 5.7 L Albumin 3.2 L Blood Type A POSITIVE Antibody Screen NEGATIVE 03/02/19 03/03/19 03/03/19 15:50 04:48 04:48 WBC 9.0 6.8 RBC 2.62 L 2.48 L Hgb 7.8 L 7.3 L Hct 23.9 L 22.5 L MCV 92 91 MCH 30.0 29.4 MCHC 32.8 32.4 RDW 14.5 H 14.2 H Plt Count 185 198 Seg Neutrophils % 81.8 H 72.4 Lymphocytes % 10.7 L 19.2 Monocytes % 5.9 5.8 Eosinophils % 0.9 1.9 Basophils % 0.7 0.7 Absolute Neutrophils 7.4 4.9 Absolute Lymphocytes 1.0 1.3 Absolute Monocytes 0.5 0.4 Absolute Eosinophils 0.1 0.1 Absolute Basophils 0.1 0.0 Sodium 139.7 Potassium 4.1 Chloride 109 H Carbon Dioxide 25 Anion Gap 6 BUN 15 Creatinine 0.93 Est GFR ( Amer) > 60 Est GFR (Non-Af Amer) 59 L Glucose 141 H Calcium 8.7 Magnesium Total Bilirubin AST Alkaline Phosphatase Total Protein Albumin Blood Type Antibody Screen 02/28/19 21:29 Troponin I < 0.012 Impressions: Acute Abdomen Series 02/28/19 20:55 IMPRESSION: 1. No acute findings. Assessment and Plan - Diagnosis (1) Acute GI bleeding Is this a current diagnosis for this admission?: Yes Plan: Likely upper given melena with red blood, elevated BUN, history of NSAID use and esophageal dilatations, continue IV Protonix, transfused 2 units of packed red blood cells, follow-up CBC and surgical consult for EGD. 03/02/2019-after 2 units of PRBC transfusion hemoglobin came up to 7.6 from 6.5. Patient has history of NSAID use. Presently on IV Protonix drip. She is going for colonoscopy today. 03/[id number]-eeif-old female admitted with acute GI bleed status post 2 units of blood transfusion latest hemoglobin 7.3 status post EGD and colonoscopy done. Severe gastritis with shallow gastric ulcerations. 2. Mild duodenitis. 3. P edunculated lesion of the gastric cardia, status post biopsy. 4. Large amount of old blood throughout the colon, without obvious bleeding source. 5. No active bleeding identified on upper or lower endoscopy. OPERATION: 1. EGD with biopsy. 2. Resolution clip placement x2 in the stomach. 3. Colonoscopy to the cecum. 4. Snare polypectomy x2. SURGEON: JUAN DANIEL COPELAND TISSUE REMOVED OR ALTERED: 1. Antral ulcer biopsy. 2. Lesion in the gastric cardia. 3. Colon polyp at 60 cm. 4 colon polyp at 50 cm. (2) Hypertension Qualifiers: Hypertension type: essential hypertension Qualified Code(s): I10 - Essential (primary) hypertension Is this a current diagnosis for this admission?: Yes Plan: Continue home medication 03/02/2019-patient blood pressure today is 128/65. Stable. 03/03/2019-patient latest blood pressure is 100/53 low normal. Patient is asymptomatic. Plan is to discontinue IV fluids advance the diet as per surgical recommendations. (3) Obstructive sleep apnea on CPAP Is this a current diagnosis for this admission?: No (4) Obesity (BMI 30-39.9) Is this a current diagnosis for this admission?: No - Time Time Spent with patient: 25-34 minutes Medications reviewed and adjusted accordingly: Yes Anticipated discharge: Home
[2019-03-03] MEDS: PAROXETINE HCL 20 MG TABLET PO SCH (09:20)
[2019-03-03] MEDS: FUROSEMIDE 20 MG TABLET PO SCH (09:20)
[2019-03-03] MEDS: FOLIC ACID 1 MG TABLET PO SCH (09:20)
[2019-03-03] MEDS: FLUTICASONE/UMECLIDIN/VILANTER 100-62.5-25 MCG/DOSE IH SCH (09:51)
[2019-03-03] MEDS ORDERED: DEXTROSE 50%-WATER 25 GM/50 ML DISP.SYRIN IV PRN ×2 (12:22)
[2019-03-03] MEDS ORDERED: DEXTROSE 40% GEL 15 GM TUBE PO PRN ×2 (12:22)
[2019-03-03] MEDS ORDERED: GLUCAGON,HUMAN RECOMB 1 MG INJ IM PRN (12:22)
--- NOTE | 2019-03-03 15:10 | PDOC PROGRESS REPORT ---
Subjective Subjective:: 73 y/o F with GI bleeding of unknown source. The pt is status post EGD and colonoscopy. She was found to have distal gastritis and a large amount of old blood in the colon. There was no active bleeding identified. She denies CP, SOB, F/C, N/V, abdominal pain. She does report fatigue, and malaise. Her last bowel movement was liquid and brown. Reason For Visit: UPPER GI BLEED ANEMIA Physical Exam Vital Signs: Temp Pulse Resp BP Pulse Ox 99.0 F 70 22 H 125/77 94 03/03/19 08:00 03/03/19 08:00 03/03/19 14:19 03/03/19 14:19 03/03/19 14:19 Intake & Output 03/02/19 03/03/19 03/04/19 06:59 06:59 06:59 Intake Total 1000 620 Output Total 4040 2105 500 Balance -4040 -1105 120 Weight 108.2 kg 104.4 kg General appearance: PRESENT: no acute distress, cooperative Head exam: PRESENT: atraumatic, normocephalic Eye exam: PRESENT: EOMI, PERRLA. ABSENT: scleral icterus Mouth exam: PRESENT: moist, neck supple Teeth exam: PRESENT: poor dentation Neck exam: ABSENT: meningismus, tenderness, thyromegaly, tracheal deviation Respiratory exam: PRESENT: unlabored. ABSENT: rhonchi, tachypnea, wheezes Cardiovascular exam: PRESENT: RRR Pulses: PRESENT: normal radial pulses Vascular exam: PRESENT: pallor GI/Abdominal exam: PRESENT: soft. ABSENT: distended, firm, guarding, rebound, rigid, tenderness Rectal exam: PRESENT: deferred Extremities exam: ABSENT: clubbing Musculoskeletal exam: ABSENT: deformity Neurological exam: PRESENT: alert, awake, oriented to person, oriented to place Psychiatric exam: ABSENT: agitated, anxious, depressed Focused psych exam: ABSENT: delusional Skin exam: ABSENT: cyanosis, erythema, jaundice Results Laboratory Results: 03/03/19 04:48 03/03/19 04:48 03/02/19 03/03/19 03/03/19 15:50 04:48 04:48 WBC 9.0 6.8 RBC 2.62 L 2.48 L Hgb 7.8 L 7.3 L Hct 23.9 L 22.5 L MCV 92 91 MCH 30.0 29.4 MCHC 32.8 32.4 RDW 14.5 H 14.2 H Plt Count 185 198 Seg Neutrophils % 81.8 H 72.4 Lymphocytes % 10.7 L 19.2 Monocytes % 5.9 5.8 Eosinophils % 0.9 1.9 Basophils % 0.7 0.7 Absolute Neutrophils 7.4 4.9 Absolute Lymphocytes 1.0 1.3 Absolute Monocytes 0.5 0.4 Absolute Eosinophils 0.1 0.1 Absolute Basophils 0.1 0.0 Sodium 139.7 Potassium 4.1 Chloride 109 H Carbon Dioxide 25 Anion Gap 6 BUN 15 Creatinine 0.93 Est GFR ( Amer) > 60 Est GFR (Non-Af Amer) 59 L Glucose 141 H Calcium 8.7 02/28/19 21:29 Troponin I < 0.012 Impressions: Acute Abdomen Series 02/28/19 20:55 IMPRESSION: 1. No acute findings. Assessment & Plan - Diagnosis (1) Acute GI bleeding Is this a current diagnosis for this admission?: Yes - Plan Summary Plan Summary: This is a 73-year-old female with GI bleeding. The source is largely unknown. Her hemoglobin appears to be stable. Continue with close observation. Advance diet. Transfuse as needed. Surgery will sign off at this time. Please renotify with any questions or concerns.
[2019-03-03] MEDS: INSULIN REG, HUMAN 100 UNIT/ML 3 ML VIAL (PYX) SUBCUT SCH ×2 (16:35→21:09)
[2019-03-03] MEDS: PANTOPRAZOLE SODIUM 40 MG TABLET.DR PO SCH (16:36)
[2019-03-03] MEDS: SIMVASTATIN 40 MG TABLET PO SCH (17:23)
[2019-03-03] MEDS: FENOFIBRATE NANOCRYSTALLIZED 145 MG TABLET PO SCH (21:09)
[2019-03-03] MEDS: PRAMIPEXOLE DI-HCL 0.5 MG TABLET PO SCH (21:09)
[2019-03-04] MEDS: PANTOPRAZOLE SODIUM 40 MG TABLET.DR PO SCH ×2 (06:19→17:55)
[2019-03-04 09:50] LABS: ABSOLUTE EOSINOPHILS # (AUTO) 0.2 10^3/uL (0.0-0.6); ABSOLUTE LYMPHOCYTES (AUTO) 1.3 10^3/uL (0.5-4.7); ABSOLUTE MONOCYTES (AUTO) 0.5 10^3/uL (0.1-1.4); ABSOLUTE NEUT (AUTO) 5.8 10^3/uL (1.7-8.2); BASOPHILS % (AUTO) 0.5 % (0-2); EOSINOPHILS % (AUTO) 2.6 % (0-6); HEMATOCRIT 21.9 % (36.0-47.0); MEAN CORPUSCULAR HEMOGLOBIN 30.6 pg (27.0-33.4); MEAN CORPUSCULAR HGB CONC 32.6 g/dL (32.0-36.0); MEAN CORPUSCULAR VOLUME 94 fl (80-97); MONOCYTES % (AUTO) 6.3 % (3-13); PLATELET COUNT 198 10^3/uL (150-450); RED BLOOD COUNT 2.33 10^6/uL (3.72-5.28); RED CELL DISTRIBUTION WIDTH 14.3 % (11.5-14.0); SEGMENTED NEUTROPHILS % (AUTO) 74.6 % (42-78); TOTAL CELLS COUNTED % (AUTO) 100 %; WHITE BLOOD COUNT 7.8 10^3/uL (4.0-10.5)
[2019-03-04 09:53] LABS: HEMOGLOBIN 7.1 g/dL (12.0-15.5)
[2019-03-04 09:58] LABS: ALBUMIN 3.5 g/dL (3.5-5.0); ALKALINE PHOSPHATASE 52 U/L (38-126); ANION GAP 8 (5-19); ASPARTATE AMINO TRANSFERASE 21 U/L (14-36); BILIRUBIN,DIRECT 0.3 mg/dL (0.0-0.4); BILIRUBIN,TOTAL 0.3 mg/dL (0.2-1.3); BLOOD UREA NITROGEN 18 mg/dL (7-20); CALCIUM 8.9 mg/dL (8.4-10.2); CARBON DIOXIDE 25 mmol/L (22-30); CHLORIDE 104 mmol/L (98-107); GLUCOSE 206 mg/dL (75-110); POTASSIUM 4.6 mmol/L (3.6-5.0)
[2019-03-04] MEDS: INSULIN REG, HUMAN 100 UNIT/ML 3 ML VIAL (PYX) SUBCUT SCH ×4 (10:27→21:26)
[2019-03-04] MEDS: FUROSEMIDE 20 MG TABLET PO SCH (10:28)
[2019-03-04] MEDS: PREGABALIN 100 MG CAPSULE PO SCH ×2 (10:28→21:14)
[2019-03-04] MEDS: FOLIC ACID 1 MG TABLET PO SCH (10:28)
[2019-03-04] MEDS: PAROXETINE HCL 20 MG TABLET PO SCH (10:29)
[2019-03-04] MEDS: FLUTICASONE/UMECLIDIN/VILANTER 100-62.5-25 MCG/DOSE IH SCH (10:29)
[2019-03-04] MEDS ORDERED: NORMAL SALINE 250 ML IV PRN ×2 (10:34)
--- NOTE | 2019-03-04 10:39 | PDOC PROGRESS REPORT ---
Subjective Progress Note for:: 03/04/19 Subjective:: 73 year old female with a past medical history of a esophageal stenosis requiring frequent dilatations, lower GI bleed, hypertension, obstructive sleep apnea, interstitial lung disease, diabetes and depression. She presents with several days of black stools that became red developing generalized weakness and lightheadedness. In the emergency room she is found to have heme positive stool and a hemoglobin of 6.5. She denies abdominal pain, blood thinner use but has recently used aspirin, she is ordered 2 units of packed red blood cells and referred to the hospitalist for admission. 03/03/[id number]-mess-old female admitted with a lower GI bleed status post EGD and colonoscopy was done latest hemoglobin is 7.3 as per surgical recommendations blood transfusion is on hold because the recommendation is to give blood transfusion if the hemoglobin drops less than 7. Patient is comfortable in the bed communicating well not in distress expressing desire to eat regular food. Presently she is on Jell-O. Patient can go to [facility]. 03/[id number]-fmui-old female admitted with GI bleed status post EGD and colonoscopy acute blood loss most likely secondary to upper GI bleed. No active bleeding was noted during the EGD and colonoscopy. Hemoglobin is 7.1 today plan is to transfuse 1 unit and recheck the CBC this evening and repeat the CBC tomorrow. No acute events since the admission. Reason For Visit: UPPER GI BLEED ANEMIA Physical Exam Vital Signs: Temp Pulse Resp BP Pulse Ox 97.8 F 70 17 108/35 L 97 03/03/19 23:25 03/04/19 08:00 03/03/19 23:25 03/03/19 23:25 03/04/19 04:02 Intake & Output 03/03/19 03/04/19 03/05/19 06:59 06:59 06:59 Intake Total 1000 2220 Output Total 2105 2625 Balance -1105 -405 Weight 104.4 kg 109.6 kg General appearance: PRESENT: no acute distress Head exam: PRESENT: atraumatic Eye exam: PRESENT: PERRLA Mouth exam: PRESENT: dry mucosa Teeth exam: PRESENT: poor dentation Neck exam: ABSENT: carotid bruit, JVD, lymphadenopathy, thyromegaly Respiratory exam: PRESENT: accessory muscle use Cardiovascular exam: PRESENT: RRR. ABSENT: diastolic murmur, rubs, systolic murmur GI/Abdominal exam: PRESENT: normal bowel sounds, soft. ABSENT: distended, guarding, mass, organolmegaly, rebound, tenderness Rectal exam: PRESENT: deferred Extremities exam: PRESENT: full ROM. ABSENT: calf tenderness, clubbing, pedal edema Neurological exam: PRESENT: alert, awake, oriented to person, oriented to place, oriented to time, oriented to situation, CN II-XII grossly intact. ABSENT: motor sensory deficit Psychiatric exam: PRESENT: appropriate affect, normal mood. ABSENT: homicidal ideation, suicidal ideation Results Laboratory Results: 03/04/19 09:05 03/04/19 09:05 03/04/19 03/04/19 09:05 09:05 WBC 7.8 RBC 2.33 L Hgb 7.1 L Hct 21.9 L MCV 94 MCH 30.6 MCHC 32.6 RDW 14.3 H Plt Count 198 Seg Neutrophils % 74.6 Lymphocytes % 16.0 Monocytes % 6.3 Eosinophils % 2.6 Basophils % 0.5 Absolute Neutrophils 5.8 Absolute Lymphocytes 1.3 Absolute Monocytes 0.5 Absolute Eosinophils 0.2 Absolute Basophils 0.0 Sodium 137.3 Potassium 4.6 Chloride 104 Carbon Dioxide 25 Anion Gap 8 BUN 18 Creatinine 1.22 Est GFR ( Amer) 52 L Est GFR (Non-Af Amer) 43 L Glucose 206 H Calcium 8.9 Magnesium 1.7 Total Bilirubin 0.3 AST 21 Alkaline Phosphatase 52 Total Protein 6.0 L Albumin 3.5 03/01/19 02:23 Catheterized Urine Urine Culture - Final Aerococcus Urinae 02/28/19 21:29 Troponin I < 0.012 Impressions: Acute Abdomen Series 02/28/19 20:55 IMPRESSION: 1. No acute findings. Assessment and Plan - Diagnosis (1) Acute GI bleeding Is this a current diagnosis for this admission?: Yes Plan: Likely upper given melena with red blood, elevated BUN, history of NSAID use and esophageal dilatations, continue IV Protonix, transfused 2 units of packed red blood cells, follow-up CBC and surgical consult for EGD. 03/02/2019-after 2 units of PRBC transfusion hemoglobin came up to 7.6 from 6.5. Patient has history of NSAID use. Presently on IV Protonix drip. She is going for colonoscopy today. 03/03/[id number]-ymvc-old female admitted with acute GI bleed status post 2 units of blood transfusion latest hemoglobin 7.3 status post EGD and colonoscopy done. Severe gastritis with shallow gastric ulcerations. 2. Mild duodenitis. 3. Pedunculated lesion of the gastric cardia, status post biopsy. 4. Large amount of old blood throughout the colon, without obvious bleeding source. 5. No active bleeding identified on upper or lower endoscopy. OPERATION: 1. EGD with biopsy. 2. Resolution clip placement x2 in the stomach. 3. Colonoscopy to the cecum. 4. Snare polypectomy x2. SURGEON: JUAN DANIEL COPELAND TISSUE REMOVED OR ALTERED: 1. Antral ulcer biopsy. 2. Lesion in the gastric cardia. 3. Colon polyp at 60 cm. 4 colon polyp at 50 cm. 03/04/[id number]-ugin-old female admitted with GI bleed acute blood loss anemia most likely secondary to upper GI bleed with ulcers. Hemoglobin is 7.1 to transfuse 1 unit of PRBC today. (2) Hypertension Qualifiers: Hypertension type: essential hypertension Qualified Code(s): I10 - Maria Dolores rosado (primary) hypertension Is this a current diagnosis for this admission?: Yes Plan: Continue home medication 03/02/2019-patient blood pressure today is 128/65. Stable. 03/03/2019-patient latest blood pressure is 100/53 low normal. Patient is asymptomatic. Plan is to discontinue IV fluids advance the diet as per surgical recommendations. 03/04/2019-patient blood pressure today is 108/35 stable. PLAN is to continue the present management. (3) Obstructive sleep apnea on CPAP Is this a current diagnosis for this admission?: No (4) Obesity (BMI 30-39.9) Is this a current diagnosis for this admission?: No (5) Diabetes mellitus Qualifiers: Diabetes mellitus type: type 2 Is this a current diagnosis for this admission?: No Plan: 03/04/2019-patient has history of type 2 diabetes mellitus on insulin sliding scale. Diet exercise weight loss compliant with medications were discussed. To check hemoglobin A1c. - Time Time Spent with patient: 15-24 minutes Medications reviewed and adjusted accordingly: Yes Anticipated discharge: Home
[2019-03-04] MEDS: SIMVASTATIN 40 MG TABLET PO SCH (17:56)
[2019-03-04] MEDS: PRAMIPEXOLE DI-HCL 0.5 MG TABLET PO SCH (21:15)
[2019-03-04] MEDS: FENOFIBRATE NANOCRYSTALLIZED 145 MG TABLET PO SCH (21:18)
[2019-03-05 04:17] LABS: ABSOLUTE EOSINOPHILS # (AUTO) 0.2 10^3/uL (0.0-0.6); ABSOLUTE LYMPHOCYTES (AUTO) 1.2 10^3/uL (0.5-4.7); ABSOLUTE MONOCYTES (AUTO) 0.5 10^3/uL (0.1-1.4); ABSOLUTE NEUT (AUTO) 5.1 10^3/uL (1.7-8.2); BASOPHILS % (AUTO) 0.6 % (0-2); EOSINOPHILS % (AUTO) 3.2 % (0-6); HEMATOCRIT 22.9 % (36.0-47.0); LYMPHOCYTES % (AUTO) 16.6 % (13-45); MEAN CORPUSCULAR HEMOGLOBIN 30.6 pg (27.0-33.4); MEAN CORPUSCULAR HGB CONC 33.9 g/dL (32.0-36.0); MONOCYTES % (AUTO) 6.9 % (3-13); PLATELET COUNT 184 10^3/uL (150-450); RED BLOOD COUNT 2.54 10^6/uL (3.72-5.28); RED CELL DISTRIBUTION WIDTH 14.4 % (11.5-14.0); SEGMENTED NEUTROPHILS % (AUTO) 72.7 % (42-78); TOTAL CELLS COUNTED % (AUTO) 100 %
[2019-03-05 04:19] LABS: HEMOGLOBIN 7.8 g/dL (12.0-15.5)
[2019-03-05 04:36] LABS: MEAN CORPUSCULAR VOLUME 90 fl (80-97)
[2019-03-05 04:45] LABS: ALBUMIN 3.3 g/dL (3.5-5.0); ALKALINE PHOSPHATASE 45 U/L (38-126); ANION GAP 7 (5-19); ASPARTATE AMINO TRANSFERASE 19 U/L (14-36); BILIRUBIN,DIRECT 0.3 mg/dL (0.0-0.4); BILIRUBIN,TOTAL 0.5 mg/dL (0.2-1.3); BLOOD UREA NITROGEN 22 mg/dL (7-20); CALCIUM 8.9 mg/dL (8.4-10.2); CARBON DIOXIDE 28 mmol/L (22-30); CHLORIDE 103 mmol/L (98-107); GLUCOSE 195 mg/dL (75-110); POTASSIUM 4.6 mmol/L (3.6-5.0); TOTAL PROTEIN 5.8 g/dL (6.3-8.2)
[2019-03-05] MEDS: PANTOPRAZOLE SODIUM 40 MG TABLET.DR PO SCH ×2 (05:44→18:02)
[2019-03-05] MEDS: PREGABALIN 100 MG CAPSULE PO SCH ×2 (09:45→21:26)
[2019-03-05] MEDS: FLUTICASONE/UMECLIDIN/VILANTER 100-62.5-25 MCG/DOSE IH SCH (09:46)
[2019-03-05] MEDS: PAROXETINE HCL 20 MG TABLET PO SCH (09:46)
[2019-03-05] MEDS: INSULIN REG, HUMAN 100 UNIT/ML 3 ML VIAL (PYX) SUBCUT SCH ×4 (09:46→21:26)
[2019-03-05] MEDS: FOLIC ACID 1 MG TABLET PO SCH (10:52)
[2019-03-05] MEDS: FUROSEMIDE 20 MG TABLET PO SCH (10:54)
--- NOTE | 2019-03-05 10:54 | PDOC PROGRESS REPORT ---
Subjective Progress Note for:: 03/05/19 Subjective:: 73 year old female with a past medical history of a esophageal stenosis requiring frequent dilatations, lower GI bleed, hypertension, obstructive sleep apnea, interstitial lung disease, diabetes and depression. She presents with several days of black stools that became red developing generalized weakness and lightheadedness. In the emergency room she is found to have heme positive stool and a hemoglobin of 6.5. She denies abdominal pain, blood thinner use but has recently used aspirin, she is ordered 2 units of packed red blood cells and referred to the hospitalist for admission. 03/03/[id number]-nucj-old female admitted with a lower GI bleed status post EGD and colonoscopy was done latest hemoglobin is 7.3 as per surgical recommendations blood transfusion is on hold because the recommendation is to give blood transfusion if the hemoglobin drops less than 7. Patient is comfortable in the bed communicating well not in distress expressing desire to eat regular food. Presently she is on Jell-O. Patient can go to [facility]. 03/04/[id number]-kigd-old female admitted with GI bleed status post EGD and colonoscopy acute blood loss most likely secondary to upper GI bleed. No active bleeding was noted during the EGD and colonoscopy. Hemoglobin is 7.1 today plan is to transfuse 1 unit and recheck the CBC this evening and repeat the CBC tomorrow. No acute events since the admission. 03/05/[id number]-iycd-old female admitted with GI bleed status post EGD and colo noscopy was done found to have a duodenal ulcers and cauterization was done gastric biopsies were done patient's hemoglobin was 7.1 yesterday 1 unit of PRBC was given hemoglobin came up to 7.8 today. Patient is asymptomatic. Physical therapy is working with the patient. Probably we may have to keep her until Friday. Reason For Visit: UPPER GI BLEED ANEMIA Physical Exam Vital Signs: Temp Pulse Resp BP Pulse Ox 98.3 F 79 21 H 119/36 L 100 03/05/19 07:50 03/05/19 07:50 03/05/19 07:50 03/05/19 07:50 03/05/19 07:50 Intake & Output 03/04/19 03/05/19 03/06/19 06:59 06:59 06:59 Intake Total 2220 2909 Output Total 2625 2225 Balance -405 684 Weight 109.6 kg 110.8 kg General appearance: PRESENT: no acute distress, cooperative, obese Head exam: PRESENT: atraumatic Eye exam: PRESENT: PERRLA Mouth exam: PRESENT: moist, tongue midline Neck exam: ABSENT: carotid bruit, JVD, lymphadenopathy, thyromegaly Respiratory exam: PRESENT: clear to auscultation [place]. ABSENT: rales, rhonchi, wheezes Cardiovascular exam: PRESENT: RRR. ABSENT: diastolic murmur, rubs, systolic murmur GI/Abdominal exam: PRESENT: normal bowel sounds, soft. ABSENT: distended, guarding, mass, organolmegaly, rebound, tenderness Rectal exam: PRESENT: deferred Extremities exam: PRESENT: full ROM. ABSENT: calf tenderness, clubbing, pedal e jaylen Neurological exam: PRESENT: alert Psychiatric exam: PRESENT: appropriate affect, normal mood. ABSENT: homicidal ideation, suicidal ideation Results Laboratory Results: 03/05/19 03:35 03/05/19 03:35 03/04/19 03/05/19 03/05/19 12:01 03:35 03:35 WBC 7.0 RBC 2.54 L Hgb 7.8 L Hct 22.9 L MCV 90 D MCH 30.6 MCHC 33.9 RDW 14.4 H Plt Count 184 Seg Neutrophils % 72.7 Lymphocytes % 16.6 Monocytes % 6.9 Eosinophils % 3.2 Basophils % 0.6 Absolute Neutrophils 5.1 Absolute Lymphocytes 1.2 Absolute Monocytes 0.5 Absolute Eosinophils 0.2 Absolute Basophils 0.0 Sodium 137.5 Potassium 4.6 Chloride 103 Carbon Dioxide 28 Anion Gap 7 BUN 22 H Creatinine 1.19 Est GFR ( Amer) 54 L Est GFR (Non-Af Amer) 44 L Glucose 195 H Calcium 8.9 Magnesium 1.6 Total Bilirubin 0.5 AST 19 Alkaline Phosphatase 45 Total Protein 5.8 L Albumin 3.3 L Blood Type A POSITIVE Antibody Screen NEGATIVE 03/01/19 02:23 Catheterized Urine Urine Culture - Final Aerococcus Urinae 02/28/19 21:29 Troponin I < 0.012 Impressions: Acute Abdomen Series 02/28/19 20:55 IMPRESSION: 1. No acute findings. Assessment and Plan - Diagnosis (1) Acute GI bleeding Is this a current diagnosis for this admission?: Yes Plan: Likely upper given melena with red blood, elevated BUN, history of NSAID use and esophageal dilatations, continue IV Protonix, transfused 2 units of packed red blood cells, follow-up CBC and surgical consult for EGD. 03/02/2019-after 2 units of PRBC transfusion hemoglobin came up to 7.6 from 6.5. Patient has history of NSAID use. Presently on IV Protonix drip. She is going for colonoscopy today. 03/03/[id number]-igwa-old female admitted with acute GI bleed status post 2 units of blood transfusion latest hemoglobin 7.3 status post EGD and colonoscopy done. Severe gastritis with shallow gastric ulcerations. 2. Mild duodenitis. 3. Pedunculated lesion of the gastric cardia, status post biopsy. 4. Large amount of old blood throughout the colon, without obvious bleeding source. 5. No active bleeding identified on upper or lower endoscopy. OPERATION: 1. EGD with biopsy. 2. Resolution clip placement x2 in the stomach. 3. Colonoscopy to the cecum. 4. Snare polypectomy x2. SURGEON: JUAN DANIEL COPELAND TISSUE REMOVED OR ALTERED: 1. Antral ulcer biopsy. 2. Lesion in the gastric cardia. 3. Colon polyp at 60 cm. 4 colon polyp at 50 cm. 03/04/[id number]-aboo-old female admitted with GI bleed acute blood loss anemia most likely secondary to upper GI bleed with ulcers. Hemoglobin is 7.1 to transfuse 1 unit of PRBC today. 03/05/[id number]-mnjo-old female admitted with acute loss anemia most likely secondary to upper GI bleed status post EGD and colonoscopy was done she received 3 units of PRBC so far during this hospital stay latest hemoglobin is 7.8. Plan is to continue to monitor her hemoglobin on regular basis. Denies any black-colored bright-colored stools in the last 24 hours. (2) Hypertension Qualifiers: Hypertension type: essential hypertension Qualified Code(s): I10 - Essential (primary) hypertension Is this a current diagnosis for this admission?: Yes Plan: Continue home medication 03/02/2019-patient blood pressure today is 128/65. Stable. 03/03/2019-patient latest blood pressure is 100/53 low normal. Patient is asymptomatic. Plan is to discontinue IV fluids advance the diet as per surgical recommendations. 03/04/2019-patient blood pressure today is 108/35 stable. PLAN is to continue the present management. 03/05/2019-patient has history of hypertension but the blood pressures are running low normal for the last 48 hours latest blood pressure is 116/50 plan is to discontinue furosemide from today. (3) Obstructive sleep apnea on CPAP Is this a current diagnosis for this admission?: No (4) Obesity (BMI 30-39.9) Is this a current diagnosis for this admission?: No (5) Diabetes mellitus Qualifiers: Diabetes mellitus type: type 2 Is this a current diagnosis for this admission?: No Plan: 03/04/2019-patient has history of type 2 diabetes mellitus on insulin sliding scale. Diet exercise weight loss compliant with medications were discussed. To check hemoglobin A1c. 03/05/2019-patient has history of type 2 diabetes mellitus and diabetic diet latest blood sugar is 145., Hemoglobin A1c is 6.1. Stable. - Time Time Spent with patient: 15-24 minutes Medications reviewed and adjusted accordingly: Yes Anticipated discharge: Home
[2019-03-05] MEDS: SIMVASTATIN 40 MG TABLET PO SCH (18:02)
[2019-03-05] MEDS: FENOFIBRATE NANOCRYSTALLIZED 145 MG TABLET PO SCH (21:26)
[2019-03-05] MEDS: PRAMIPEXOLE DI-HCL 0.5 MG TABLET PO SCH (21:28)
[2019-03-06 04:26] LABS: ABSOLUTE BASOPHILS # (AUTO) 0.1 10^3/uL (0.0-0.2); ABSOLUTE EOSINOPHILS # (AUTO) 0.3 10^3/uL (0.0-0.6); ABSOLUTE LYMPHOCYTES (AUTO) 1.2 10^3/uL (0.5-4.7); ABSOLUTE MONOCYTES (AUTO) 0.6 10^3/uL (0.1-1.4); ABSOLUTE NEUT (AUTO) 4.9 10^3/uL (1.7-8.2); BASOPHILS % (AUTO) 0.8 % (0-2); EOSINOPHILS % (AUTO) 3.7 % (0-6); HEMATOCRIT 22.4 % (36.0-47.0); LYMPHOCYTES % (AUTO) 17.3 % (13-45); MEAN CORPUSCULAR HEMOGLOBIN 29.2 pg (27.0-33.4); MEAN CORPUSCULAR HGB CONC 32.7 g/dL (32.0-36.0); MEAN CORPUSCULAR VOLUME 89 fl (80-97); MONOCYTES % (AUTO) 8.6 % (3-13); PLATELET COUNT 212 10^3/uL (150-450); RED BLOOD COUNT 2.51 10^6/uL (3.72-5.28); RED CELL DISTRIBUTION WIDTH 14.2 % (11.5-14.0); SEGMENTED NEUTROPHILS % (AUTO) 69.6 % (42-78); TOTAL CELLS COUNTED % (AUTO) 100 %; WHITE BLOOD COUNT 7.1 10^3/uL (4.0-10.5)
[2019-03-06 04:32] LABS: HEMOGLOBIN 7.3 g/dL (12.0-15.5)
[2019-03-06 04:43] LABS: ALBUMIN 3.2 g/dL (3.5-5.0); ALKALINE PHOSPHATASE 49 U/L (38-126); ASPARTATE AMINO TRANSFERASE 17 U/L (14-36); BILIRUBIN,DIRECT 0.2 mg/dL (0.0-0.4); BILIRUBIN,TOTAL 0.3 mg/dL (0.2-1.3); BLOOD UREA NITROGEN 23 mg/dL (7-20); CHLORIDE 101 mmol/L (98-107); GLUCOSE 188 mg/dL (75-110); POTASSIUM 4.7 mmol/L (3.6-5.0); TOTAL PROTEIN 5.8 g/dL (6.3-8.2)
[2019-03-06 04:46] LABS: ANION GAP 6 (5-19); CARBON DIOXIDE 30 mmol/L (22-30)
[2019-03-06] MEDS: PANTOPRAZOLE SODIUM 40 MG TABLET.DR PO SCH ×3 (06:48→16:43)
[2019-03-06] MEDS: PHENOL/SODIUM PHENOLATE 100 SPRAY/177 ML BOTTLE PO PRN ×2 (06:53→12:00)
[2019-03-06] MEDS: INSULIN REG, HUMAN 100 UNIT/ML 3 ML VIAL (PYX) SUBCUT SCH ×4 (08:42→22:38)
[2019-03-06] MEDS: PREGABALIN 100 MG CAPSULE PO SCH ×2 (08:42→22:37)
[2019-03-06] MEDS: FOLIC ACID 1 MG TABLET PO SCH (11:58)
[2019-03-06] MEDS: PAROXETINE HCL 20 MG TABLET PO SCH (11:59)
[2019-03-06] MEDS: FLUTICASONE/UMECLIDIN/VILANTER 100-62.5-25 MCG/DOSE IH SCH (11:59)
--- NOTE | 2019-03-06 12:07 | PDOC PROGRESS REPORT ---
Subjective Progress Note for:: 03/06/19 Subjective:: 73 year old female with a past medical history of a esophageal stenosis requiring frequent dilatations, lower GI bleed, hypertension, obstructive sleep apnea, interstitial lung disease, diabetes and depression. She presents with several days of black stools that became red developing generalized weakness and lightheadedness. In the emergency room she is found to have heme positive stool and a hemoglobin of 6.5. She denies abdominal pain, blood thinner use but has recently used aspirin, she is ordered 2 units of packed red blood cells and referred to the hospitalist for admission. 03/03/[id number]-zrte-old female admitted with a lower GI bleed status post EGD and colonoscopy was done latest hemoglobin is 7.3 as per surgical recommendations blood transfusion is on hold because the recommendation is to give blood transfusion if the hemoglobin drops less than 7. Patient is comfortable in the bed communicating well not in distress expressing desire to eat regular food. Presently she is on Jell-O. Patient can go to [facility]. 03/04/[id number]-ygvp-old female admitted with GI bleed status post EGD and colonoscopy acute blood loss most likely secondary to upper GI bleed. No active bleeding was noted during the EGD and colonoscopy. Hemoglobin is 7.1 today plan is to transfuse 1 unit and recheck the CBC this evening and repeat the CBC tomorrow. No acute events since the admission. 03/05/[id number]-dgla-old female admitted with GI bleed status post EGD and colo noscopy was done found to have a duodenal ulcers and cauterization was done gastric biopsies were done patient's hemoglobin was 7.1 yesterday 1 unit of PRBC was given hemoglobin came up to 7.8 today. Patient is asymptomatic. Physical therapy is working with the patient. Probably we may have to keep her until Friday. Reason For Visit: UPPER GI BLEED ANEMIA Physical Exam Vital Signs: Temp Pulse Resp BP Pulse Ox 98.6 F 86 20 98/69 L 90 L 03/06/19 07:45 03/06/19 07:45 03/06/19 07:45 03/06/19 07:45 03/06/19 07:45 Intake & Output 03/05/19 03/06/19 03/07/19 06:59 06:59 06:59 Intake Total 2909 2196 Output Total 2225 1650 Balance 684 546 Weight 110.8 kg 108.1 kg General appearance: PRESENT: no acute distress, morbidly obese Head exam: PRESENT: atraumatic Eye exam: PRESENT: PERRLA Mouth exam: PRESENT: moist, tongue midline Teeth exam: PRESENT: poor dentation Neck exam: ABSENT: carotid bruit, JVD, lymphadenopathy, thyromegaly Respiratory exam: PRESENT: clear to auscultation [place]. ABSENT: rales, rhonchi, wheezes Cardiovascular exam: PRESENT: RRR. ABSENT: diastolic murmur, rubs, systolic murmur GI/Abdominal exam: PRESENT: normal bowel sounds, soft. ABSENT: distended, guarding, mass, organolmegaly, rebound, tenderness Rectal exam: PRESENT: deferred Neurological exam: PRESENT: alert, awake, oriented to person, oriented to place, oriented to time, oriented to situation, CN II-XII grossly intact. ABSENT: motor sensory deficit Psychiatric exam: PRESENT: appropriate affect, normal mood. ABSENT: homicidal ideation, suicidal ideation Results Laboratory Results: 03/06/19 04:04 03/06/19 04:04 03/06/19 03/06/19 04:04 04:04 WBC 7.1 RBC 2.51 L Hgb 7.3 L Hct 22.4 L MCV 89 MCH 29.2 MCHC 32.7 RDW 14.2 H Plt Count 212 Seg Neutrophils % 69.6 Lymphocytes % 17.3 Monocytes % 8.6 Eosinophils % 3.7 Basophils % 0.8 Absolute Neutrophils 4.9 Absolute Lymphocytes 1.2 Absolute Monocytes 0.6 Absolute Eosinophils 0.3 Absolute Basophils 0.1 Sodium 136.8 L Potassium 4.7 Chloride 101 Carbon Dioxide 30 Anion Gap 6 BUN 23 H Creatinine 1.08 Est GFR ( Amer) > 60 Est GFR (Non-Af Amer) 49 L Glucose 188 H Calcium 9.0 Magnesium 1.7 Total Bilirubin 0.3 AST 17 Alkaline Phosphatase 49 Total Protein 5.8 L Albumin 3.2 L 02/28/19 21:29 Troponin I < 0.012 Impressions: Acute Abdomen Series 02/28/19 20:55 IMPRESSION: 1. No acute findings. Assessment and Plan - Diagnosis (1) Acute GI bleeding Is this a current diagnosis for this admission?: Yes Plan: Likely upper given melena with red blood, elevated BUN, history of NSAID use and esophageal dilatations, continue IV Protonix, transfused 2 units of packed red blood cells, follow-up CBC and surgical consult for EGD. 03/02/2019-after 2 units of PRBC transfusion hemoglobin came up to 7.6 from 6.5. Patient has history of NSAID use. Presently on IV Protonix drip. She is going for colonoscopy today. 03/03/[id number]-dumu-old female admitted with acute GI bleed status post 2 units of blood transfusion latest hemoglobin 7.3 status post EGD and colonoscopy done. Severe gastritis with shallow gastric ulcerations. 2. Mild duodenitis. 3. Pe dunculated lesion of the gastric cardia, status post biopsy. 4. Large amount of old blood throughout the colon, without obvious bleeding source. 5. No active bleeding identified on upper or lower endoscopy. OPERATION: 1. EGD with biopsy. 2. Resolution clip placement x2 in the stomach. 3. Colonoscopy to the cecum. 4. Snare polypectomy x2. SURGEON: JUAN DANIEL COPELAND TISSUE REMOVED OR ALTERED: 1. Antral ulcer biopsy. 2. Lesion in the gastric cardia. 3. Colon polyp at 60 cm. 4 colon polyp at 50 cm. 03/04/[id number]-bpjs-old female admitted with GI bleed acute blood loss anemia most likely secondary to upper GI bleed with ulcers. Hemoglobin is 7.1 to transfuse 1 unit of PRBC today. 03/05/[id number]-scsm-old female admitted with acute loss anemia most likely secondary to upper GI bleed status post EGD and colonoscopy was done she received 3 units of PRBC so far during this hospital stay latest hemoglobin is 7 .8. Plan is to continue to monitor her hemoglobin on regular basis. Denies any black-colored bright-colored stools in the last 24 hours. 03/06/[id number]-chne-old female admitted with acute blood loss anemia due to GI bleed. Status post EGD and colonoscopy was done greenstick biopsies pending. Found to have gastric ulcerations. She received a total of 3 units of blood transfusion latest hemoglobin is 7.3 dropped from 7.8 yesterday. Patient says still passing a little bit of blood in the stool. (2) Hypertension Qualifiers: Hypertension type: essential hypertension Qualified Code(s): I10 - Essential (primary) hypertension Is this a current diagnosis for this admission?: Yes Plan: Continue home medication 03/02/2019-patient blood pressure today is 128/65. Stable. 03/03/2019-patient latest blood pressure is 100/53 low normal. Patient is asymptomatic. Plan is to discontinue IV fluids advance the diet as per surgical recommendations. 03/04/2019-patient blood pressure today is 108/35 stable. PLAN is to continue the present management. 03/05/2019-patient has history of hypertension but the blood pressures are running low normal for the last 48 hours latest blood pressure is 116/50 plan is to discontinue furosemide from today. 03/06/2019-patient has history of hypertension blood pressure today is 88/69 to adjust her blood pressure medications. Requested the nurse to check manual blood pressures. (3) Obstructive sleep apnea on CPAP Is this a current diagnosis for this admission?: No (4) Obesity (BMI 30-39.9) Is this a current diagnosis for this admission?: No (5) Diabetes mellitus Qualifiers: Diabetes mellitus type: type 2 Is this a current diagnosis for this admission?: No Plan: 03/04/2019-patient has history of type 2 diabetes mellitus on insulin sliding scale. Diet exercise weight loss compliant with medications were discussed. To check hemoglobin A1c. 03/05/2019-patient has history of type 2 diabetes mellitus and diabetic diet latest blood sugar is 145., Hemoglobin A1c is 6.1. Stable. 03/06/2019-patient's latest blood sugars are 200, hemoglobin A1c 6.1 plan is to continue the blood sugar monitoring before meals and at bedtime with coverage. - Time Time Spent with patient: 25-34 minutes Medications reviewed and adjusted accordingly: Yes Anticipated discharge: Home
[2019-03-06] MEDS: OXYCODONE-ACETAMINOPHEN 5-325 MG TABLET PO PRN ×2 (15:27→22:37)
[2019-03-06] MEDS: SIMVASTATIN 40 MG TABLET PO SCH (17:43)
[2019-03-06] MEDS: FENOFIBRATE NANOCRYSTALLIZED 145 MG TABLET PO SCH (22:37)
[2019-03-06] MEDS: PRAMIPEXOLE DI-HCL 0.5 MG TABLET PO SCH (22:38)
[2019-03-07] MEDS: OXYCODONE-ACETAMINOPHEN 5-325 MG TABLET PO PRN ×2 (05:15→19:49)
[2019-03-07] MEDS: PANTOPRAZOLE SODIUM 40 MG TABLET.DR PO SCH ×2 (05:15→17:44)
[2019-03-07 06:07] LABS: ABSOLUTE BASOPHILS # (AUTO) 0.1 10^3/uL (0.0-0.2); ABSOLUTE EOSINOPHILS # (AUTO) 0.2 10^3/uL (0.0-0.6); ABSOLUTE LYMPHOCYTES (AUTO) 0.9 10^3/uL (0.5-4.7); ABSOLUTE MONOCYTES (AUTO) 0.7 10^3/uL (0.1-1.4); ABSOLUTE NEUT (AUTO) 4.6 10^3/uL (1.7-8.2); BASOPHILS % (AUTO) 0.8 % (0-2); EOSINOPHILS % (AUTO) 3.4 % (0-6); HEMATOCRIT 22.2 % (36.0-47.0); MEAN CORPUSCULAR HEMOGLOBIN 29.6 pg (27.0-33.4); MEAN CORPUSCULAR HGB CONC 32.9 g/dL (32.0-36.0); MEAN CORPUSCULAR VOLUME 90 fl (80-97); MONOCYTES % (AUTO) 10.6 % (3-13); PLATELET COUNT 236 10^3/uL (150-450); RED BLOOD COUNT 2.47 10^6/uL (3.72-5.28); SEGMENTED NEUTROPHILS % (AUTO) 71.2 % (42-78); TOTAL CELLS COUNTED % (AUTO) 100 %; WHITE BLOOD COUNT 6.4 10^3/uL (4.0-10.5)
[2019-03-07 06:17] LABS: HEMOGLOBIN 7.3 g/dL (12.0-15.5)
[2019-03-07 06:25] LABS: ALBUMIN 3.2 g/dL (3.5-5.0); ALKALINE PHOSPHATASE 53 U/L (38-126); ASPARTATE AMINO TRANSFERASE 19 U/L (14-36); BILIRUBIN,DIRECT 0.3 mg/dL (0.0-0.4); BILIRUBIN,TOTAL 0.3 mg/dL (0.2-1.3); BLOOD UREA NITROGEN 30 mg/dL (7-20); CARBON DIOXIDE 30 mmol/L (22-30); CHLORIDE 102 mmol/L (98-107); GLUCOSE 210 mg/dL (75-110); POTASSIUM 5.1 mmol/L (3.6-5.0); TOTAL PROTEIN 5.8 g/dL (6.3-8.2)
[2019-03-07 06:49] LABS: ANION GAP 4 (5-19)
[2019-03-07] MEDS: PREGABALIN 100 MG CAPSULE PO SCH ×2 (08:03→22:16)
[2019-03-07] MEDS: INSULIN REG, HUMAN 100 UNIT/ML 3 ML VIAL (PYX) SUBCUT SCH ×4 (08:03→22:16)
[2019-03-07] MEDS ORDERED: ERGOCALCIFEROL (VITAMIN D2) 50000 UNIT (1.25 MG) CAPSULE PO SCH (10:00)
[2019-03-07] MEDS: FOLIC ACID 1 MG TABLET PO SCH (10:10)
[2019-03-07] MEDS: PAROXETINE HCL 20 MG TABLET PO SCH (10:10)
[2019-03-07] MEDS: FLUTICASONE/UMECLIDIN/VILANTER 100-62.5-25 MCG/DOSE IH SCH (10:10)
--- NOTE | 2019-03-07 11:25 | PDOC PROGRESS REPORT ---
Subjective Progress Note for:: 03/07/19 Subjective:: 73 year old female with a past medical history of a esophageal stenosis requiring frequent dilatations, lower GI bleed, hypertension, obstructive sleep apnea, interstitial lung disease, diabetes and depression. She presents with several days of black stools that became red developing generalized weakness and lightheadedness. In the emergency room she is found to have heme positive stool and a hemoglobin of 6.5. She denies abdominal pain, blood thinner use but has recently used aspirin, she is ordered 2 units of packed red blood cells and referred to the hospitalist for admission. 03/03/[id number]-rspq-old female admitted with a lower GI bleed status post EGD and colonoscopy was done latest hemoglobin is 7.3 as per surgical recommendations blood transfusion is on hold because the recommendation is to give blood transfusion if the hemoglobin drops less than 7. Patient is comfortable in the bed communicating well not in distress expressing desire to eat regular food. Presently she is on Jell-O. Patient can go to [facility]. 03/04/[id number]-atlm-old female admitted with GI bleed status post EGD and colonoscopy acute blood loss most likely secondary to upper GI bleed. No active bleeding was noted during the EGD and colonoscopy. Hemoglobin is 7.1 today plan is to transfuse 1 unit and recheck the CBC this evening and repeat the CBC tomorrow. No acute events since the admission. 03/05/[id number]-oedj-old female admitted with GI bleed status post EGD and colo noscopy was done found to have a duodenal ulcers and cauterization was done gastric biopsies were done patient's hemoglobin was 7.1 yesterday 1 unit of PRBC was given hemoglobin came up to 7.8 today. Patient is asymptomatic. Physical therapy is working with the patient. Probably we may have to keep her until Friday. 03/07/2019-no acute events in the last 24 hours. Hemoglobin 7.3. Plan is to d ischarge home tomorrow with home health. Reason For Visit: UPPER GI BLEED ANEMIA Physical Exam Vital Signs: Temp Pulse Resp BP Pulse Ox 98.9 F 79 21 H 109/52 L 92 03/07/19 03:15 03/07/19 03:15 03/07/19 03:15 03/07/19 03:15 03/07/19 03:15 Intake & Output 03/06/19 03/07/19 03/08/19 06:59 06:59 06:59 Intake Total 2196 1165 Output Total 1650 1999 Balance 546 -835 Weight 108.1 kg 109.5 kg General appearance: PRESENT: no acute distress Head exam: PRESENT: atraumatic Eye exam: PRESENT: PERRLA Mouth exam: PRESENT: moist, tongue midline Teeth exam: PRESENT: poor dentation Neck exam: ABSENT: carotid bruit, JVD, lymphadenopathy, thyromegaly Respiratory exam: PRESENT: clear to auscultation [place]. ABSENT: rales, rhonchi, wheezes Cardiovascular exam: PRESENT: RRR. ABSENT: diastolic murmur, rubs, systolic murmur GI/Abdominal exam: PRESENT: ascites Gentrourinary exam: PRESENT: indwelling catheter Extremities exam: PRESENT: full ROM. ABSENT: calf tenderness, clubbing, pedal edema Neurological exam: PRESENT: alert, awake, oriented to person, oriented to place, oriented to time, oriented to situation, CN II-XII grossly intact. ABSENT: motor sensory deficit Results Laboratory Results: 03/07/19 05:24 03/07/19 05:24 03/07/19 03/07/19 05:24 05:24 WBC 6.4 RBC 2.47 L Hgb 7.3 L Hct 22.2 L MCV 90 MCH 29.6 MCHC 32.9 RDW 14.0 Plt Count 236 Seg Neutrophils % 71.2 Lymphocytes % 14.0 Monocytes % 10.6 Eosinophils % 3.4 Basophils % 0.8 Absolute Neutrophils 4.6 Absolute Lymphocytes 0.9 Absolute Monocytes 0.7 Absolute Eosinophils 0.2 Absolute Basophils 0.1 Sodium 136.1 L Potassium 5.1 H Chloride 102 Carbon Dioxide 30 Anion Gap 4 L BUN 30 H Creatinine 1.32 H Est GFR ( Amer) 47 L Est GFR (Non-Af Amer) 39 L Glucose 210 H Calcium 9.0 Magnesium 1.8 Total Bilirubin 0.3 AST 19 Alkaline Phosphatase 53 Total Protein 5.8 L Albumin 3.2 L 02/28/19 21:29 Troponin I < 0.012 Impressions: Acute Abdomen Series 02/28/19 20:55 IMPRESSION: 1. No acute findings. Assessment and Plan - Diagnosis (1) Acute GI bleeding Is this a current diagnosis for this admission?: Yes Plan: Likely upper given melena with red blood, elevated BUN, history of NSAID use and esophageal dilatations, continue IV Protonix, transfused 2 units of packed red blood cells, follow-up CBC and surgical consult for EGD. 03/02/2019-after 2 units of PRBC transfusion hemoglobin came up to 7.6 from 6.5. Patient has history of NSAID use. Presently on IV Protonix drip. She is going for colonoscopy today. 03/03/[id number]-qqhq-old female admitted with acute GI bleed status post 2 units of blood transfusion latest hemoglobin 7.3 status post EGD and colonoscopy done. Severe gastritis with shallow gastric ulcerations. 2. Mild duodenitis. 3. Pedunculated lesion of the gastric cardia, status post biopsy. 4. Large amount of old blood throughout the colon, without obvious bleeding source. 5. No active bleeding identified on upper or lower endoscopy. OPERATION: 1. EGD with biopsy. 2. Resolution clip placement x2 in the stomach. 3. Colonoscopy to the cecum. 4. Snare polypectomy x2. SURGEON: JUAN DANIEL COPELAND TISSUE REMOVED OR ALTERED: 1. Antral ulcer biopsy. 2. Lesion in the gastric cardia. 3. Colon polyp at 60 cm. 4 colon polyp at 50 cm. 03/04/[id number]-yllf-old female admitted with GI bleed acute blood loss anemia most likely secondary to upper GI bleed with ulcers. Hemoglobin is 7.1 to transfuse 1 unit of PRBC today. 03/05/[id number]-jtvf-old female admitted with acute loss anemia most likely secondary to upper GI bleed status post EGD and colonoscopy was done she received 3 units of PRBC so far during this hospital stay latest hemoglobin is 7.8. Plan is to continue to monitor her hemoglobin on regular basis. Denies any black-colored bright-colored stools in the last 24 hours. 03/06/[id number]-drsg-old female admitted with acute blood loss anemia due to GI bleed. Status post EGD and colonoscopy was done greenstick biopsies pending. Found to have gastric ulcerations. She received a total of 3 units of blood transfusion latest hemoglobin is 7.3 dropped from 7.8 yesterday. Patient says still passing a little bit of blood in the stool. 03/07/2019-patient admitted with acute blood loss anemia most likely secondary to upper GI bleed. s/p EGD and colonoscopy done. The hemoglobin is stable around 7.3. (2) Hypertension Qualifiers: Hypertension type: essential hypertension Qualified Code(s): I10 - Essential (primary) hypertension Is this a current diagnosis for this admission?: Yes Plan: Continue home medication 03/02/2019-patient blood pressure today is 128/65. Stable. 03/03/2019-patient latest blood pressure is 100/53 low normal. Patient is asymptomatic. Plan is to discontinue IV fluids advance the diet as per surgical recommendations. 03/04/2019-patient blood pressure today is 108/35 stable. PLAN is to continue the present management. 03/05/2019-patient has history of hypertension but the blood pressures are running low normal for the last 48 hours latest blood pressure is 116/50 plan is to discontinue furosemide from today. 03/06/2019-patient has history of hypertension blood pressure today is 88/69 to adjust her blood pressure medications. Requested the nurse to check manual blood pressures. 03/07/2019-patient blood pressure today is 110/52 stable. Patient is off the Lasix of the blood pressure medications. Plan is to continue to closely monitor the blood pressures. (3) Obstructive sleep apnea on CPAP Is this a current diagnosis for this admission?: No (4) Obesity (BMI 30-39.9) Is this a current diagnosis for this admission?: No (5) Diabetes mellitus Qualifiers: Diabetes mellitus type: type 2 Is this a current diagnosis for this admission?: No Plan: 03/04/2019-patient has history of type 2 diabetes mellitus on insulin sliding scale. Diet exercise weight loss compliant with medications were discussed. To check hemoglobin A1c. 03/05/2019-patient has history of type 2 diabetes mellitus and diabetic diet latest blood sugar is 145., Hemoglobin A1c is 6.1. Stable. 03/06/2019-patient's latest blood sugars are 200, hemoglobin A1c 6.1 plan is to continue the blood sugar monitoring before meals and at bedtime with coverage. 03/07/2019-patient hemoglobin is 227 today. Plan is to continue the present management. Presently on insulin sliding scale. - Time Time Spent with patient: 25-34 minutes Medications reviewed and adjusted accordingly: Yes Anticipated discharge: Home
[2019-03-07] MEDS: SIMVASTATIN 40 MG TABLET PO SCH (17:44)
[2019-03-07] MEDS: PRAMIPEXOLE DI-HCL 0.5 MG TABLET PO SCH (22:15)
[2019-03-07] MEDS: FENOFIBRATE NANOCRYSTALLIZED 145 MG TABLET PO SCH (22:16)
[2019-03-08] MEDS: PANTOPRAZOLE SODIUM 40 MG TABLET.DR PO SCH ×2 (05:26→17:47)
[2019-03-08] MEDS: OXYCODONE-ACETAMINOPHEN 5-325 MG TABLET PO PRN (05:26)
[2019-03-08] MEDS: INSULIN REG, HUMAN 100 UNIT/ML 3 ML VIAL (PYX) SUBCUT SCH ×4 (08:08→22:35)
[2019-03-08] MEDS: PREGABALIN 100 MG CAPSULE PO SCH ×2 (08:09→21:42)
[2019-03-08] MEDS: FOLIC ACID 1 MG TABLET PO SCH (12:48)
[2019-03-08] MEDS: PAROXETINE HCL 20 MG TABLET PO SCH (12:48)
[2019-03-08] MEDS: FLUTICASONE/UMECLIDIN/VILANTER 100-62.5-25 MCG/DOSE IH SCH (12:49)
--- NOTE | 2019-03-08 13:47 | PDOC DISCHARGE SUMMARY ---
General - Admit/Disc Date/PCP Admission Date/Primary Care Provider: 02/28/19 22:42 JENNIFER COOPER PA-C Discharge Date: 03/08/19 - Discharge Diagnosis (1) Acute GI bleeding Is this a current diagnosis for this admission?: Yes Summary: Likely upper given melena with red blood, elevated BUN, history of NSAID use and esophageal dilatations, continue IV Protonix, transfused 2 units of packed red blood cells, follow-up CBC and surgical consult for EGD. 03/02/2019-after 2 units of PRBC transfusion hemoglobin came up to 7.6 from 6.5. Patient has history of NSAID use. Presently on IV Protonix drip. She is going for colonoscopy today. 03/03/[id number]-uqrw-old female admitted with acute GI bleed status post 2 units of blood transfusion latest hemoglobin 7.3 status post EGD and colonoscopy done. Severe gastritis with shallow gastric ulcerations. 2. Mild duodenitis. 3. Pedunculated lesion of the gastric cardia, status post biopsy. 4. Large amount of old blood throughout the colon, without obvious bleeding source. 5. No active bleeding identified on upper or lower endoscopy. OPERATION: 1. EGD with biopsy. 2. Resolution clip placement x2 in the stomach. 3. Colonoscopy to the cecum. 4. Snare polypectomy x2. SURGEON: JUAN DANIEL COPELAND TISSUE REMOVED OR ALTERED: 1. Antral ulcer biopsy. 2. Lesion in the gastric cardia. 3. Colon polyp at 60 cm. 4 colon polyp at 50 cm. 03/04/[id number]-spdq-old female admitted with GI bleed acute blood loss anemia most likely secondary to upper GI bleed with ulcers. Hemoglobin is 7.1 to transfuse 1 unit of PRBC today. 03/05/[id number]-dmxp-old female admitted with acute loss anemia most likely secondary to upper GI bleed status post EGD and colonoscopy was done she received 3 units of PRBC so far during this hospital stay latest hemoglobin is 7.8. Plan is to continue to monitor her hemoglobin on regular basis. Denies any black-colored bright-colored stools in the last 24 hours. 03/06/[id number]-bzzu-old female admitted with acute blood loss anemia due to GI bleed. Status post EGD and colonoscopy was done greenstick biopsies pending. Found to have gastric ulcerations. She received a total of 3 units of blood transfusion latest hemoglobin is 7.3 dropped from 7.8 yesterday. Patient says still passing a little bit of blood in the stool. 03/07/2019-patient admitted with acute blood loss anemia most likely secondary to upper GI bleed. s/p EGD and colonoscopy done. The hemoglobin is stable around 7.3. 03/08/2019-patient admitted with acute blood loss anemia secondary to upper GI bleed status post 3 units of blood transfusion hemoglobin is stable around 7.3. Patient is strongly advised to follow-up with general surgery in less than a week. (2) Hypertension Is this a current diagnosis for this admission?: Yes Summary: Continue home medication 03/02/2019-patient blood pressure today is 128/65. Stable. 03/03/2019-patient latest blood pressure is 100/53 low normal. Patient is asymptomatic. Plan is to discontinue IV fluids advance the diet as per surgical recommendations. 03/04/2019-patient blood pressure today is 108/35 stable. PLAN is to continue the present management. 03/05/2019-patient has history of hypertension but the blood pressures are running low normal for the last 48 hours latest blood pressure is 116/50 plan is to discontinue furosemide from today. 03/06/2019-patient has history of hypertension blood pressure today is 88/69 to adjust her blood pressure medications. Requested the nurse to check manual blood pressures. 03/07/2019-patient blood pressure today is 110/52 stable. Patient is off the Lasix of the blood pressure medications. Plan is to continue to closely monitor the blood pressures. 03/08/2019-patient blood pressure today is 150/70 patient is on furosemide and telmisartan at home she was advised to hold medications ankles she sees her primary care physician. (3) Obstructive sleep apnea on CPAP Is this a current diagnosis for this admission?: No Summary: 09/08/2018-patient has history of obstructive sleep apnea she was advised to continue CPAP at night. (4) Obesity (BMI 30-39.9) Is this a current diagnosis for this admission?: No Summary: 03/08/2019-patient BMI is more than 36 diet exercise weight loss lifestyle modifications are discussed with the patient. Dietary consult was provided during the hospital stay. (5) Diabetes mellitus Is this a current diagnosis for this admission?: No Summary: 03/04/2019-patient has history of type 2 diabetes mellitus on insulin sliding scale. Diet exercise weight loss compliant with medications were discussed. To check hemoglobin A1c. 03/05/2019-patient has history of type 2 diabetes mellitus and diabetic diet latest blood sugar is 145., Hemoglobin A1c is 6.1. Stable. 03/06/2019-patient's latest blood sugars are 200, hemoglobin A1c 6.1 plan is to continue the blood sugar monitoring before meals and at bedtime with coverage. 03/07/2019-patient hemoglobin is 227 today. Plan is to continue the present management. Presently on insulin sliding scale. - Additional Information Resuscitation Status: Full Code Discharge Diet: Diabetic Discharge Activity: Activity As Tolerated Prescriptions: Pantoprazole Sodium [Protonix [address] Tablet] 40 mg PO DAILY #30 tablet.dr Home Medications: Dulaglutide [Trulicity] 0.75 mg SQ CALHOUN@1000 03/01/19 Empagliflozin [Jardiance] 10 mg PO DAILY 03/01/19 Ergocalciferol (Vitamin D2) [Drisdol 50,000 unit (1.25MG) Capsule] 50,000 unit PO CALHOUN@1000 03/01/19 Fenofibric Acid (Choline) [Fenofibric Acid] 135 mg PO QHS 03/01/19 Fluticasone/Umeclidin/Vilanter [Trelegy 100-62.5-25 Mcg Ellipta 14 Dose/Dpi] 1 puff IH DAILY 03/01/19 Folic Acid [Folvite 1 mg Tablet] 1 mg PO DAILY 03/01/19 Insulin Glargine,Hum.rec.anlog [Lantus Insulin 100 Unit/1 ml 10 ml] 80 unit SUBCUT QHS 03/01/19 Ipratropium/Albuterol Sulfate [Duoneb 3 ml Ampul] 3 ml NEB RTQ6 03/01/19 Magnesium Oxide [Mag-Ox 400 mg Tablet] 400 mg PO DAILYP PRN 03/01/19 Nitroglycerin [Nitrostat 0.4 mg (1/150 Gr) Tabs 25/Bottle] 1 tab SL Q5MP PRN 03/01/19 Paroxetine HCl [Paxil 20 mg Tablet] 20 mg PO DAILY 03/01/19 Pramipexole Di-HCl [Pramipexole Dihydrochloride] 1.5 mg PO QHS 03/01/19 Pregabalin [Lyrica] 300 mg PO Q12 03/01/19 Simvastatin [Zocor 40 mg Tablet] 40 mg PO QPM 03/01/19 Pantoprazole Sodium [Protonix [address] Tablet] 40 mg PO DAILY #30 tablet. 03/08/19 History of Present Illness History of Present Illness: JAMIE DAN I is a 73 year old female 73 year old female with a past medical history of a esophageal stenosis requiring frequent dilatations, lower GI bleed, hypertension, obstructive sleep apnea, interstitial lung disease, diabetes and depression. She presents with several days of black stools that became red developing generalized weakness and lightheadedness. In the emergency room she is found to have heme positive stool and a hemoglobin of 6.5. She denies abdominal pain, blood thinner use but has recently used aspirin, she is ordered 2 units of packed red blood cells and referred to the hospitalist for admission. Hospital Course Hospital Course: 73 year old female with a past medical history of a esophageal stenosis requiring frequent dilatations, lower GI bleed, hypertension, obstructive sleep apnea, interstitial lung disease, diabetes and depression. She presents with several days of black stools that became red developing generalized weakness and lightheadedness. In the emergency room she is found to have heme positive stool and a hemoglobin of 6.5. She denies abdominal pain, blood thinner use but has recently used aspirin, she is ordered 2 units of packed red blood cells and r eferred to the hospitalist for admission. 03/03/[id number]-pnca-old female admitted with a lower GI bleed status post EGD and colonoscopy was done latest hemoglobin is 7.3 as per surgical recommendations blood transfusion is on hold because the recommendation is to give blood transfusion if the hemoglobin drops less than 7. Patient is comfortable in the bed communicating well not in distress expressing desire to eat regular food. Presently she is on Jell-O. Patient can go to [facility]. 03/04/[id number]-fawv-old female admitted with GI bleed status post EGD and colonoscopy acute blood loss most likely secondary to upper GI bleed. No active bleeding was noted during the EGD and colonoscopy. Hemoglobin is 7.1 today plan is to transfuse 1 unit and recheck the CBC this evening and repeat the CBC tomor row. No acute events since the admission. 03/05/[id number]-wxxo-old female admitted with GI bleed status post EGD and colonoscopy was done found to have a duodenal ulcers and cauterization was done gastric biopsies were done patient's hemoglobin was 7.1 yesterday 1 unit of PRBC was given hemoglobin came up to 7.8 today. Patient is asymptomatic. Physical therapy is working with the patient. Probably we may have to keep her until Friday. 03/07/2019-no acute events in the last 24 hours. Hemoglobin 7.3. Plan is to discharge home tomorrow with home health. 03/08/2019-no acute events in the last 24 hours. Hemoglobin stable around 7.3. Family is here in the hospital record home today. Patient is going home with home health and home PT. Physical Exam Vital Signs: Temp Pulse Resp BP Pulse Ox 98.9 F 79 17 134/43 H 95 03/08/19 11:31 03/08/19 11:31 03/08/19 11:31 03/08/19 11:31 03/08/19 11:31 Intake & Output 03/07/19 03/08/19 03/09/19 06:59 06:59 06:59 Intake Total 1165 857 Output Total 1999 3400 Balance -186 -0002 Weight 109.5 kg 107 kg General appearance: PRESENT: no acute distress, obese Head exam: PRESENT: atraumatic Eye exam: PRESENT: PERRLA Mouth exam: PRESENT: dry mucosa Teeth exam: PRESENT: poor dentation Neck exam: ABSENT: carotid bruit, JVD, lymphadenopathy, thyromegaly Respiratory exam: PRESENT: decreased breath sounds Cardiovascular exam: PRESENT: RRR. ABSENT: diastolic murmur, rubs, systolic murmur GI/Abdominal exam: PRESENT: normal bowel sounds, soft. ABSENT: distended, guarding, mass, organolmegaly, rebound, tenderness Rectal exam: PRESENT: deferred Extremities exam: PRESENT: full ROM. ABSENT: calf tenderness, clubbing, pedal edema Neurological exam: PRESENT: alert, awake, oriented to person, oriented to place, oriented to time, oriented to situation, CN II-XII grossly intact. ABSENT: motor sensory deficit Psychiatric exam: PRESENT: appropriate affect, normal mood. ABSENT: homicidal ideation, suicidal ideation Results Laboratory Results: 03/07/19 05:24 03/07/19 05:24 02/28/19 21:29 Troponin I < 0.012 Impressions: Acute Abdomen Series 02/28/19 20:55 IMPRESSION: 1. No acute findings. Qualifiers - * PATIENT BEING DISCHARGED WITH ANY OF THE FOLLOWING DIAGNOSIS: No VTE patient discharged on overlapping Therapy?: No Acute Heart Failure - Is this a Heart Failure Patient?: No Plan Time Spent: Greater than 30 Minutes
[2019-03-08] MEDS: SIMVASTATIN 40 MG TABLET PO SCH (17:47)
[2019-03-08] MEDS: FENOFIBRATE NANOCRYSTALLIZED 145 MG TABLET PO SCH (21:41)
[2019-03-08] MEDS: PRAMIPEXOLE DI-HCL 0.5 MG TABLET PO SCH (21:42)
[2019-03-09] MEDS: PANTOPRAZOLE SODIUM 40 MG TABLET.DR PO SCH (05:06)
[2019-03-09] MEDS: INSULIN REG, HUMAN 100 UNIT/ML 3 ML VIAL (PYX) SUBCUT SCH ×3 (08:45→13:16)
[2019-03-09] MEDS: FOLIC ACID 1 MG TABLET PO SCH (09:00)
[2019-03-09] MEDS: PREGABALIN 100 MG CAPSULE PO SCH (09:00)
[2019-03-09 09:08] LABS: ABSOLUTE BASOPHILS # (AUTO) 0.1 10^3/uL (0.0-0.2); ABSOLUTE EOSINOPHILS # (AUTO) 0.1 10^3/uL (0.0-0.6); ABSOLUTE LYMPHOCYTES (AUTO) 1.1 10^3/uL (0.5-4.7); ABSOLUTE MONOCYTES (AUTO) 0.7 10^3/uL (0.1-1.4); ABSOLUTE NEUT (AUTO) 4.1 10^3/uL (1.7-8.2); BASOPHILS % (AUTO) 1.2 % (0-2); EOSINOPHILS % (AUTO) 2.2 % (0-6); HEMATOCRIT 23.9 % (36.0-47.0); LYMPHOCYTES % (AUTO) 18.7 % (13-45); MEAN CORPUSCULAR HEMOGLOBIN 30.3 pg (27.0-33.4); MEAN CORPUSCULAR HGB CONC 33.3 g/dL (32.0-36.0); MEAN CORPUSCULAR VOLUME 91 fl (80-97); PLATELET COUNT 273 10^3/uL (150-450); RED BLOOD COUNT 2.63 10^6/uL (3.72-5.28); RED CELL DISTRIBUTION WIDTH 14.1 % (11.5-14.0); SEGMENTED NEUTROPHILS % (AUTO) 66.9 % (42-78); TOTAL CELLS COUNTED % (AUTO) 100 %; WHITE BLOOD COUNT 6.1 10^3/uL (4.0-10.5)
--- NOTE | 2019-03-09 09:27 | PDOC DISCHARGE SUMMARY ---
General - Admit/Disc Date/PCP Admission Date/Primary Care Provider: 02/28/19 22:42 JENNIFER COOPER PA-C Discharge Date: 03/09/19 - Discharge Diagnosis (1) Acute GI bleeding Is this a current diagnosis for this admission?: Yes Summary: Likely upper given melena with red blood, elevated BUN, history of NSAID use and esophageal dilatations, continue IV Protonix, transfused 2 units of packed red blood cells, follow-up CBC and surgical consult for EGD. 03/02/2019-after 2 units of PRBC transfusion hemoglobin came up to 7.6 from 6.5. Patient has history of NSAID use. Presently on IV Protonix drip. She is going for colonoscopy today. 03/03/[id number]-dwtx-old female admitted with acute GI bleed status post 2 units of blood transfusion latest hemoglobin 7.3 status post EGD and colonoscopy done. Severe gastritis with shallow gastric ulcerations. 2. Mild duodenitis. 3. Pedunculated lesion of the gastric cardia, status post biopsy. 4. Large amount of old blood throughout the colon, without obvious bleeding source. 5. No active bleeding identified on upper or lower endoscopy. OPERATION: 1. EGD with biopsy. 2. Resolution clip placement x2 in the stomach. 3. Colonoscopy to the cecum. 4. Snare polypectomy x2. SURGEON: JUAN DANIEL COPELAND TISSUE REMOVED OR ALTERED: 1. Antral ulcer biopsy. 2. Lesion in the gastric cardia. 3. Colon polyp at 60 cm. 4 colon polyp at 50 cm. 03/04/[id number]-wweo-old female admitted with GI bleed acute blood loss anemia most likely secondary to upper GI bleed with ulcers. Hemoglobin is 7.1 to transfuse 1 unit of PRBC today. 03/05/[id number]-gqgq-old female admitted with acute loss anemia most likely secondary to upper GI bleed status post EGD and colonoscopy was done she received 3 units of PRBC so far during this hospital stay latest hemoglobin is 7.8. Plan is to continue to monitor her hemoglobin on regular basis. Denies any black-colored bright-colored stools in the last 24 hours. 03/06/[id number]-suax-old female admitted with acute blood loss anemia due to GI bleed. Status post EGD and colonoscopy was done greenstick biopsies pending. Found to have gastric ulcerations. She received a total of 3 units of blood transfusion latest hemoglobin is 7.3 dropped from 7.8 yesterday. Patient says still passing a little bit of blood in the stool. 03/07/2019-patient admitted with acute blood loss anemia most likely secondary to upper GI bleed. s/p EGD and colonoscopy done. The hemoglobin is stable around 7.3. 03/08/2019-patient admitted with acute blood loss anemia secondary to upper GI bleed status post 3 units of blood transfusion hemoglobin is stable around 7.3. Patient is strongly advised to follow-up with general surgery in less than a week. 03/09/2019-hemoglobin is stable around 7.3 today CBC is pending patient got a bed in the senior living facility if the hemoglobin is stable she will go to there today. No acute events in the last 24 hours. (2) Hypertension Is this a current diagnosis for this admission?: Yes Summary: Continue home medication 03/02/2019-patient blood pressure today is 128/65. Stable. 03/03/2019-patient latest blood pressure is 100/53 low normal. Patient is asymptomatic. Plan is to discontinue IV fluids advance the diet as per surgical recommendations. 03/04/2019-patient blood pressure today is 108/35 stable. PLAN is to continue the present management. 03/05/2019-patient has history of hypertension but the blood pressures are running low normal for the last 48 hours latest blood pressure is 116/50 plan is to discontinue furosemide from today. 03/06/2019-patient has history of hypertension blood pressure today is 88/69 to adjust her blood pressure medications. Requested the nurse to check manual blood pressures. 03/07/2019-patient blood pressure today is 110/52 stable. Patient is off the Lasix of the blood pressure medications. Plan is to continue to closely monitor the blood pressures. 03/08/2019-patient blood pressure today is 150/70 patient is on furosemide and telmisartan at home she was advised to hold medications ankles she sees her primary care physician. 03/09 2019-patient blood pressure today is 116/60. Stable. Patient is advised to hold off furosemide and telmisartan. (3) Obstructive sleep apnea on CPAP Is this a current diagnosis for this admission?: No Summary: 03/08/2019-patient has history of obstructive sleep apnea she was advised to continue CPAP at night. (4) Obesity (BMI 30-39.9) Is this a current diagnosis for this admission?: No Summary: 03/08/2019-patient BMI is more than 36 diet exercise weight loss lifestyle modifications are discussed with the patient. Dietary consult was provided during the hospital stay. (5) Diabetes mellitus Is this a current diagnosis for this admission?: No Summary: 03/04/2019-patient has history of type 2 diabetes mellitus on insulin sliding sc [place]. Diet exercise weight loss compliant with medications were discussed. To check hemoglobin A1c. 03/05/2019-patient has history of type 2 diabetes mellitus and diabetic diet latest blood sugar is 145., Hemoglobin A1c is 6.1. Stable. 03/06/2019-patient's latest blood sugars are 200, hemoglobin A1c 6.1 plan is to continue the blood sugar monitoring before meals and at bedtime with coverage. 03/07/2019-patient hemoglobin is 227 today. Plan is to continue the present management. Presently on insulin sliding scale. - Additional Information Resuscitation Status: Full Code Discharge Diet: Diabetic Discharge Activity: Activity As Tolerated Prescriptions: Pantoprazole Sodium [Protonix [address] Tablet] 40 mg PO DAILY #30 tablet.dr Home Medications: Dulaglutide [Trulicity] 0.75 mg SQ CALHOUN@1000 03/01/19 Empagliflozin [Jardiance] 10 mg PO DAILY 03/01/19 Ergocalciferol (Vitamin D2) [Drisdol 50,000 unit (1.25MG) Capsule] 50,000 unit PO CALHOUN@1000 03/01/19 Fenofibric Acid (Choline) [Fenofibric Acid] 135 mg PO QHS 03/01/19 Fluticasone/Umeclidin/Vilanter [Trelegy 100-62.5-25 Mcg Ellipta 14 Dose/Dpi] 1 puff IH DAILY 03/01/19 Folic Acid [Folvite 1 mg Tablet] 1 mg PO DAILY 03/01/19 Insulin Glargine,Hum.rec.anlog [Lantus Insulin 100 Unit/1 ml 10 ml] 80 unit SUBCUT QHS 03/01/19 Ipratropium/Albuterol Sulfate [Duoneb 3 ml Ampul] 3 ml NEB RTQ6 03/01/19 Magnesium Oxide [Mag-Ox 400 mg Tablet] 400 mg PO DAILYP PRN 03/01/19 Nitroglycerin [Nitrostat 0.4 mg (1/150 Gr) Tabs 25/Bottle] 1 tab SL Q5MP PRN 03/01/19 Paroxetine HCl [Paxil 20 mg Tablet] 20 mg PO DAILY 03/01/19 Pramipexole Di-HCl [Pramipexole Dihydrochloride] 1.5 mg PO QHS 03/01/19 Pregabalin [Lyrica] 300 mg PO Q12 03/01/19 Simvastatin [Zocor 40 mg Tablet] 40 mg PO QPM 03/01/19 Pantoprazole Sodium [Protonix [address] Tablet] 40 mg PO DAILY #30 tablet.dr 03/08/19 History of Present Illness History of Present Illness: JAMIE DAN I is a 73 year old female 73 year old female with a past medical history of a esophageal stenosis requiring frequent dilatations, lower GI bleed, hypertension, obstructive sleep apnea, interstitial lung disease, diabetes and depression. She presents with several days of black stools that became red developing generalized weakness and lightheadedness. In the emergency room she is found to have heme positive stool and a hemoglobin of 6.5. She denies abdominal pain, blood thinner use but has recently used aspirin, she is ordered 2 units of packed red blood cells and referred to the hospitalist for admission. Hospital Course Hospital Course: JAMIE DAN I is a 73 year old female 73 year old female with a past medical history of a esophageal stenosis requi ring frequent dilatations, lower GI bleed, hypertension, obstructive sleep apnea, interstitial lung disease, diabetes and depression. She presents with several days of black stools that became red developing generalized weakness and lightheadedness. In the emergency room she is found to have heme positive stool and a hemoglobin of 6.5. She denies abdominal pain, blood thinner use but has recently used aspirin, she is ordered 2 units of packed red blood cells and referred to the hospitalist for admission. 73 year old female with a past medical history of a esophageal stenosis requiring frequent dilatations, lower GI bleed, hypertension, obstructive sleep apnea, interstitial lung disease, diabetes and depression. She presents with several days of black stools that became red developing generalized weakness and lightheadedness. In the emergency room she is found to have heme positive stool and a hemoglobin of 6.5. She denies abdominal pain, blood thinner use but has recently used aspirin, she is ordered 2 units of packed red blood cells and referred to the hospitalist for admission. 03/03/[id number]-zlbk-old female admitted with a lower GI bleed status post EGD and colonoscopy was done latest hemoglobin is 7.3 as per surgical recommendations blood transfusion is on hold because the recommendation is to give blood transfusion if the hemoglobin drops less than 7. Patient is comfortable in the bed communicating well not in distress expressing desire to eat regular food. Presently she is on Jell-O. Patient can go to [facility]. 03/04/[id number]-byyu-old female admitted with GI bleed status post EGD and colonoscopy acute blood loss most likely secondary to upper GI bleed. No active bleeding was noted during the EGD and colonoscopy. Hemoglobin is 7.1 today plan is to transfuse 1 unit and recheck the CBC this evening and repeat the CBC tomorrow. No acute events since the admission. 03/05/[id number]-kmvm-old female admitted with GI bleed status post EGD and colonoscopy was done found to have a duodenal ulcers and cauterization was done gastric biopsies were done patient's hemoglobin was 7.1 yesterday 1 unit of PRBC was given hemoglobin came up to 7.8 today. Patient is asymptomatic. Physical therapy is working with the patient. Probably we may have to keep her until Friday. 03/07/2019-no acute events in the last 24 hours. Hemoglobin 7.3. Plan is to discharge home tomorrow with home health. 03/08/2019-no acute events in the last 24 hours. Hemoglobin stable around 7.3. Family is here in the hospital record home today. Patient is going home with home health and home PT. 03/09/2019-patient is supposed to go home yesterday with home health she is unable to get up and walk her family refused to take her home yesterday fortunately she got a bed in the rehab facility today. She is going there today. Physical Exam Vital Signs: Temp Pulse Resp BP Pulse Ox 99.0 F 67 18 116/38 L 96 03/09/19 07:51 03/09/19 07:51 03/09/19 07:51 03/09/19 07:51 03/09/19 07:51 Intake & Output 03/08/19 03/09/19 03/10/19 06:59 06:59 06:59 Intake Total 857 336 Output Total 3400 Balance -2543 336 Weight 107 kg 106.8 kg General appearance: PRESENT: no acute distress, morbidly obese Head exam: PRESENT: atraumatic Eye exam: PRESENT: PERRLA Mouth exam: PRESENT: moist, tongue midline Teeth exam: PRESENT: poor dentation Neck exam: ABSENT: carotid bruit, JVD, lymphadenopathy, thyromegaly Respiratory exam: PRESENT: clear to auscultation [place]. ABSENT: rales, rhonchi, wheezes Cardiovascular exam: PRESENT: RRR. ABSENT: diastolic murmur, rubs, systolic murmur Pulses: PRESENT: normal dorsalis pedis pul GI/Abdominal exam: PRESENT: normal bowel sounds, soft. ABSENT: distended, guarding, mass, organolmegaly, rebound, tenderness Rectal exam: PRESENT: deferred Extremities exam: PRESENT: full ROM. ABSENT: calf tenderness, clubbing, pedal edema Neurological exam: PRESENT: alert, awake, oriented to person, oriented to place, oriented to time, oriented to situation, CN II-XII grossly intact. ABSENT: motor sensory deficit Psychiatric exam: PRESENT: appropriate affect, normal mood. ABSENT: homicidal ideation, suicidal ideation Results Laboratory Results: 03/09/19 08:26 03/09/19 08:26 WBC 6.1 RBC 2.63 L Hgb 8.0 L Hct 23.9 L MCV 91 MCH 30.3 MCHC 33.3 RDW 14.1 H Plt Count 273 Seg Neutrophils % 66.9 Lymphocytes % 18.7 Monocytes % 11.0 Eosinophils % 2.2 Basophils % 1.2 Absolute Neutrophils 4.1 Absolute Lymphocytes 1.1 Absolute Monocytes 0.7 Absolute Eosinophils 0.1 Absolute Basophils 0.1 02/28/19 21:29 Troponin I < 0.012 Impressions: Acute Abdomen Series 02/28/19 20:55 IMPRESSION: 1. No acute findings. Qualifiers - * PATIENT BEING DISCHARGED WITH ANY OF THE FOLLOWING DIAGNOSIS: No VTE patient discharged on overlapping Therapy?: No Acute Heart Failure - Is this a Heart Failure Patient?: No
[2019-03-09 09:30] LABS: ALBUMIN 3.8 g/dL (3.5-5.0); ALKALINE PHOSPHATASE 57 U/L (38-126); ANION GAP 8 (5-19); ASPARTATE AMINO TRANSFERASE 43 U/L (14-36); BILIRUBIN,DIRECT 0.2 mg/dL (0.0-0.4); BILIRUBIN,TOTAL 0.3 mg/dL (0.2-1.3); BLOOD UREA NITROGEN 34 mg/dL (7-20); CALCIUM 9.6 mg/dL (8.4-10.2); CARBON DIOXIDE 33 mmol/L (22-30); CHLORIDE 96 mmol/L (98-107); GLUCOSE 184 mg/dL (75-110); POTASSIUM 4.8 mmol/L (3.6-5.0); TOTAL PROTEIN 6.5 g/dL (6.3-8.2)
[2019-03-09] MEDS: FLUTICASONE/UMECLIDIN/VILANTER 100-62.5-25 MCG/DOSE IH SCH (10:27)
[2019-03-09] MEDS: PAROXETINE HCL 20 MG TABLET PO SCH (10:28)
[2019-03-09 12:41] VITALS: BP 117/50
== END 2019-03-09 13:47 | DRG 378 ==
LOC: ER 20:28 → EH 22:42 → ICU 03-01 00:23 → 5 03-03 16:24
PROVIDERS: ADMIT Internal Medicine; ATTEND Internal Medicine
PROC: 30233N1 Transfusion of Nonautologous Red Blood Cells into Peripheral Vein, Percutaneous Approach (ICD-10-PCS; 2019-02-28)
PROC: 0DB78ZX Excision of Stomach, Pylorus, Via Natural or Artificial Opening Endoscopic, Diagnostic (ICD-10-PCS; 2019-03-02)
PROC: 0DBM8ZZ Excision of Descending Colon, Via Natural or Artificial Opening Endoscopic (ICD-10-PCS; 2019-03-02)
PROC: 0W3P8ZZ Control Bleeding in Gastrointestinal Tract, Via Natural or Artificial Opening Endoscopic (ICD-10-PCS; principal; 2019-03-02 11:00)
PROC: 5A09557 Assistance with Respiratory Ventilation, Greater than 96 Consecutive Hours, Continuous Positive Airway Pressure (ICD-10-PCS; 2019-03-02 11:00)
DX: K29.81 Duodenitis with bleeding (principal); D62 Acute posthemorrhagic anemia; J84.9 Interstitial pulmonary disease, unspecified; K25.4 Chronic or unspecified gastric ulcer with hemorrhage; E78.00 Pure hypercholesterolemia, unspecified; I10 Essential (primary) hypertension; J44.9 Chronic obstructive pulmonary disease, unspecified; F32.9 Major depressive disorder, single episode, unspecified; E10.9 Type 1 diabetes mellitus without complications; E78.5 Hyperlipidemia, unspecified; G47.33 Obstructive sleep apnea (adult) (pediatric); K31.9 Disease of stomach and duodenum, unspecified; G40.909 Epilepsy, unspecified, not intractable, without status epilepticus; E66.01 Morbid (severe) obesity due to excess calories; Z60.2 Problems related to living alone; Z79.4 Long term (current) use of insulin; Z88.6 Allergy status to analgesic agent; Z88.8 Allergy status to other drugs, medicaments and biological substances; Z87.891 Personal history of nicotine dependence; Z79.899 Other long term (current) drug therapy
CPT/HCPCS: 00813; 36415; 36430; 43239; 45385; 74022; 80048; 80053; 81001; 82962; 83036; 83690; 83735; 84484; 85025; 85610; 85730; 86850; 86900; 86901; 86920; 87070; 87086; 87088; 88305; 88342; 93005; 93010; 94660; 96374; 99284; J1815; J2250; J2704; J3490; J7030; J7050; P9016; S0164

== ENCOUNTER 2019-04-02 11:16 | Inpatient (IN) | payer MEDICARE, OTHER ==
--- NOTE | 2019-04-02 12:16 | ER Document Report ---
ED GI/ - General Chief Complaint: Diarrhea Stated Complaint: DIARRHEA Time Seen by Provider: 04/02/19 11:51 Mode of Arrival: Medic Information source: Patient, Relative Notes: Patient presents reporting diarrhea for the past week. Patient states that she has had over 8 episodes of diarrhea daily with trace blood in her stool. Patient has had nausea. No vomiting and no fever. Patient reports recently being treated for GI bleed. Family states that they did do an endoscopy and colonoscopy and could not find the source of the bleeding. Patient was advised that she may need a laparoscopic procedure to find the source of her bleeding. Patient states that she has been feeling weak at home and having difficulty ambulating. Patient reports frequent falls at home. Patient had a fall today although was assisted to the ground by her family who witnessed the near fall. Patient denies any chest pain shortness of breath headache or injury from her fall. Family is concerned that patient is not safe to take care of herself at home. Patient wants to remain independent living at home alone. Family states that they cannot manage her care as they both work full-time. TRAVEL OUTSIDE OF THE [place] IN LAST 30 DAYS: No - HPI Patient complains to provider of: Diarrhea. No: Vomiting Onset: Last week Timing/Duration: Persistent Quality of pain: No pain Vaginal bleeding (Compared to normal period): None Associated symptoms: Blood in stool, Diarrhea, Nausea. denies: Fever, Urinary hesitancy, Urinary frequency, Urinary retention, Urinary urgency, Vomiting Exacerbated by: Denies Relieved by: Denies Similar symptoms previously: No Recently seen / treated by doctor: Yes - Related Data Allergies/Adverse Reactions: morphine Allergy (Intermediate, Verified 02/05/19 11:29) Erythema Multiforme metformin Adverse Reaction (Verified 02/05/19 11:29) Diarrhea Past Medical History - General Information source: Patient, Relative - Social History Smoking Status: Never Smoker Frequency of alcohol use: None Drug Abuse: None Lives with: Alone Family History: Reviewed & Not Pertinent Patient has suicidal ideation: No Patient has homicidal ideation: No - Past Medical History Cardiac Medical History: Reports: Hx Hypercholesterolemia, Hx Hypertension Pulmonary Medical History: Reports: Hx COPD, Hx Pneumonia, Hx Intubation Neurological Medical History: Reports: Hx Seizures Endocrine Medical History: Reports: Hx Diabetes Mellitus Type 1 Renal/ Medical History: Denies: Hx Peritoneal Dialysis Musculoskeletal Medical History: Reports Hx Arthritis Psychiatric Medical History: Denies: Hx Depression Traumatic Medical History: Reports: Hx Pneumothorax Past Surgical History: Reports: Hx Cardiac Catheterization, Hx Cholecystectomy, Hx Hysterectomy, Hx Orthopedic Surgery - knee - Immunizations Hx Diphtheria, Pertussis, Tetanus Vaccination: No Hx Pneumococcal Vaccination: 04/27/14 Review of Systems - Review of Systems Constitutional: Weakness. denies: Fever EENT: No symptoms reported Cardiovascular: No symptoms reported. denies: Chest pain, Syncope, Dizziness Respiratory: No symptoms reported. denies: Cough, Short of breath Gastrointestinal: Diarrhea, Nausea. denies: Abdominal pain, Vomiting Genitourinary: No symptoms reported. denies: Dysuria, Flank pain Female Genitourinary: No symptoms reported Musculoskeletal: No symptoms reported. denies: Back pain Skin: No symptoms reported Hematologic/Lymphatic: No symptoms reported Neurological/Psychological: No symptoms reported. denies: Headaches Physical Exam - Vital signs Vitals: Temp Resp Pulse Ox 98.6 F 22 H 98 04/02/19 11:52 04/02/19 11:52 04/02/19 11:52 - General General appearance: Appears well, Alert In distress: None - HEENT Head: Normocephalic, Atraumatic Eyes: Normal Conjunctiva: Normal Nasal: Normal Mouth/Lips: Normal Mucous membranes: Normal Neck: Normal, Supple - Respiratory Respiratory status: No respiratory distress Chest status: Nontender Breath sounds: Normal. No: Rales, Rhonchi, Stridor, Wheezing Chest palpation: Normal - Cardiovascular Rhythm: Regular. No: Tachycardia Heart sounds: S1 appreciated, S2 appreciated - Abdominal Inspection: Morbidly Obese Distension: No distension Bowel sounds: Normal Tenderness: Tender - generalized lower abd - Back Back: Normal - Extremities General upper extremity: Normal inspection, Normal ROM General lower extremity: Normal inspection, Normal ROM - Neurological Neuro grossly intact: Yes Cognition: Normal [place] Coma Scale Eye Opening: Spontaneous Jack Coma Scale Verbal: Oriented Jack Coma Scale Motor: Obeys Commands [place] Coma Scale Total: 15 - Psychological Associated symptoms: Normal affect, Normal mood - Skin Skin Temperature: Warm Skin Moisture: Dry Skin Color: Pale Course - Re-evaluation Re-evalutation: 04/02/19 16:00 Discussed with family at length her concerns about patient's safety living alone given her generalized weakness and inability to perform all her IADLs and ADLs. Family is concerned as patient has had some falls recently although the fall today was assisted. Attempted to consult discharge planning although they have already left for the day. 04/02/19 16:[address] Fisher regarding patient presentation, recommends consultation with hospitalist for admission at this time. Spoke with Dr. Harmon who agrees to accept patient to telemetry floor - Vital Signs Vital signs: Temp Pulse Resp BP Pulse Ox 97.7 F 19 127/54 H 98 04/02/19 16:00 04/02/19 17:01 04/02/19 17:01 04/02/19 17:01 - Laboratory Result Diagrams: 04/02/19 11:55 04/02/19 11:55 Laboratory results interpreted by me: 04/02/19 04/02/19 04/02/19 11:55 11:55 14:14 RBC 3.30 L Hgb 9.6 L Hct 29.4 L RDW 17.0 H Lymph % (Auto) 9.2 L Seg Neutrophils % 82.1 H Sodium 136.7 L Est GFR ( Amer) 58 L Est GFR (MDRD) Non-Af 48 L Glucose 144 H Magnesium 1.5 L Urine Nitrite Ur Leukocyte Esterase Stool for White Cells MODERATE H 04/02/19 15:35 RBC Hgb Hct RDW Lymph % (Auto) Seg Neutrophils % Sodium Est GFR ( Amer) Est GFR (MDRD) Non-Af Glucose Magnesium Urine Nitrite POSITIVE H Ur Leukocyte Esterase SMALL H Stool for White Cells Labs- Entire Visit 04/02/19 04/02/19 04/02/19 11:55 11:55 11:55 WBC 10.0 RBC 3.30 L Hgb 9.6 L Hct 29.4 L MCV 89 MCH 29.0 MCHC 32.5 RDW 17.0 H Plt Count 286 Lymph % (Auto) 9.2 L [place] % (Auto) 6.3 Eos % (Auto) 2.0 Baso % (Auto) 0.4 Absolute Neuts (auto) 8.2 Absolute Lymphs (auto) 0.9 Absolute Monos (auto) 0.6 Absolute Eos (auto) 0.2 Absolute Basos (auto) 0.0 Seg Neutrophils % 82.1 H PT 14.6 INR 1.14 APTT 29.5 Sodium 136.7 L Potassium 4.3 Chloride 99 Carbon Dioxide 29 Anion Gap 9 BUN 20 Creatinine 1.11 Est GFR ( Amer) 58 L Est GFR (MDRD) Non-Af 48 L Glucose 144 H Calcium 10.0 Magnesium 1.5 L Total Bilirubin 0.3 Direct Bilirubin 0.3 Neonat Total Bilirubin Not Reportable Neonat Direct Bilirubin Not Reportable Neonat Indirect Bili Not Reportable AST 22 ALT 18 Alkaline Phosphatase 48 Total Protein 6.6 Albumin 3.7 Urine Color Urine Appearance Urine pH Ur Specific [place] Urine Protein Urine Glucose (UA) Urine Ketones Urine Blood Urine Nitrite Urine Bilirubin Urine Urobilinogen Ur Leukocyte Esterase Urine WBC (Auto) Urine RBC (Auto) Urine Bacteria (Auto) Urine Mucus (Auto) Urine Ascorbic Acid Stl Occult Blood (ICT) POC Stool Occult Blood Stool for White Cells C. difficile Tox (PCR) 04/02/19 04/02/19 04/02/19 14:13 14:14 14:14 WBC RBC Hgb Hct MCV MCH MCHC RDW Plt Count Lymph % (Auto) [place] % (Auto) Eos % (Auto) Baso % (Auto) Absolute Neuts (auto) Absolute Lymphs (auto) Absolute Monos (auto) Absolute Eos (auto) Absolute Basos (auto) Seg Neutrophils % PT INR APTT Sodium Potassium Chloride Carbon Dioxide Anion Gap BUN Creatinine Est GFR ( Amer) Est GFR (MDRD) Non-Af Glucose Calcium Magnesium Total Bilirubin Direct Bilirubin Neonat Total Bilirubin Neonat Direct Bilirubin Neonat Indirect Bili AST ALT Alkaline Phosphatase Total Protein Albumin Urine Color Urine Appearance Urine pH Ur Specific [place] Urine Protein Urine Glucose (UA) Urine Ketones Urine Blood Urine Nitrite Urine Bilirubin Urine Urobilinogen Ur Leukocyte Esterase Urine WBC (Auto) Urine RBC (Auto) Urine Bacteria (Auto) Urine Mucus (Auto) Urine Ascorbic Acid Stl Occult Blood (ICT) POSITIVE POC Stool Occult Blood POSITIVE Stool for White Cells C. difficile Tox (PCR) NEGATIVE 04/02/19 04/02/19 14:14 15:35 WBC RBC Hgb Hct MCV MCH MCHC RDW Plt Count Lymph % (Auto) [place] % (Auto) Eos % (Auto) Baso % (Auto) Absolute Neuts (auto) Absolute Lymphs (auto) Absolute Monos (auto) Absolute Eos (auto) Absolute Basos (auto) Seg Neutrophils % PT INR APTT Sodium Potassium Chloride Carbon Dioxide Anion Gap BUN Creatinine Est GFR ( Amer) Est GFR (MDRD) Non-Af Glucose Calcium Magnesium Total Bilirubin Direct Bilirubin Neonat Total Bilirubin Neonat Direct Bilirubin Neonat Indirect Bili AST ALT Alkaline Phosphatase Total Protein Albumin Urine Color YELLOW Urine Appearance SLIGHTLY-CLOUDY Urine pH 5.0 Ur Specific [place] 1.008 Urine Protein NEGATIVE Urine Glucose (UA) NEGATIVE Urine Ketones NEGATIVE Urine Blood NEGATIVE Urine Nitrite POSITIVE H Urine Bilirubin NEGATIVE Urine Urobilinogen NEGATIVE Ur Leukocyte Esterase SMALL H Urine WBC (Auto) 7 Urine RBC (Auto) 0 Urine Bacteria (Auto) 3+ Urine Mucus (Auto) RARE Urine Ascorbic Acid NEGATIVE Stl Occult Blood (ICT) POC Stool Occult Blood Stool for White Cells MODERATE H C. difficile Tox (PCR) - EKG Interpretation by Me EKG shows normal: Sinus rhythm Rate: Normal Additional EKG results interpreted by me: 04/02/19 16:48 QTC 438, no ST elevation, no T wave inversion Discharge - Discharge Clinical Impression: Fall Qualifiers: Encounter type: initial encounter Qualified Code(s): W19.XXXA - Unspecified fall, initial encounter Diarrhea Qualifiers: Diarrhea type: unspecified type Qualified Code(s): R19.7 - Diarrhea, unspecified Anemia Qualifiers: Anemia type: unspecified type Qualified Code(s): D64.9 - Anemia, unspecified UTI (urinary tract infection) Qualifiers: Urinary tract infection type: site unspecified Hematuria presence: without hematuria Qualified Code(s): N39.0 - Urinary tract infection, site not specified Condition: Stable Disposition: ADMITTED INPATIENT Admitting Provider: Faustino (Hospitalist) Unit Admitted: Telemetry
[2019-04-02 12:25] LABS: ABSOLUTE EOSINOPHILS # (AUTO) 0.2 10^3/uL (0.0-0.6); ABSOLUTE LYMPHOCYTES (AUTO) 0.9 10^3/uL (0.5-4.7); ABSOLUTE MONOCYTES (AUTO) 0.6 10^3/uL (0.1-1.4); ABSOLUTE NEUT (AUTO) 8.2 10^3/uL (1.7-8.2); BASOPHILS % (AUTO) 0.4 % (0-2); HEMATOCRIT 29.4 % (36.0-47.0); HEMOGLOBIN 9.6 g/dL (12.0-15.5); LYMPHOCYTES % (AUTO) 9.2 % (13-45); MEAN CORPUSCULAR HGB CONC 32.5 g/dL (32.0-36.0); MEAN CORPUSCULAR VOLUME 89 fl (80-97); MONOCYTES % (AUTO) 6.3 % (3-13); PLATELET COUNT 286 10^3/uL (150-450); SEGMENTED NEUTROPHILS % (AUTO) 82.1 % (42-78); TOTAL CELLS COUNTED % (AUTO) 100 %
[2019-04-02 12:29] LABS: INTERNATIONAL RATION (INR) 1.14; PROTHROMBIN TIME 14.6 SEC (11.4-15.4)
[2019-04-02 12:30] LABS: PARTIAL THROMBOPLASTIN TIME 29.5 SEC (23.5-35.8)
[2019-04-02 12:32] LABS: ALBUMIN 3.7 g/dL (3.5-5.0); ALKALINE PHOSPHATASE 48 U/L (38-126); ANION GAP 9 (5-19); ASPARTATE AMINO TRANSFERASE 22 U/L (14-36); BILIRUBIN,DIRECT 0.3 mg/dL (0.0-0.4); BILIRUBIN,TOTAL 0.3 mg/dL (0.2-1.3); BLOOD UREA NITROGEN 20 mg/dL (7-20); CARBON DIOXIDE 29 mmol/L (22-30); CHLORIDE 99 mmol/L (98-107); GLUCOSE 144 mg/dL (75-110); POTASSIUM 4.3 mmol/L (3.6-5.0); TOTAL PROTEIN 6.6 g/dL (6.3-8.2)
[2019-04-02] MEDS ORDERED: NORMAL SALINE 500 ML IV ONE (14:44)
[2019-04-02] MEDS ORDERED: MAGNESIUM OXIDE 400 MG TABLET PO ONE (14:46)
[2019-04-02 16:10] LABS: APPEARANCE,URINE SLIGHTLY-CLOUDY; BILIRUBIN,URINE NEGATIVE (NEGATIVE); COLOR,URINE YELLOW; GLUCOSE, URINE NEGATIVE (NEGATIVE); KETONES,URINE NEGATIVE (NEGATIVE); LEUKOCYTE ESTERASE,URINE SMALL (NEGATIVE); NITRITE,URINE POSITIVE (NEGATIVE); PROTEIN,URINE NEGATIVE (NEGATIVE); URINE SPECIFIC GRAVITY 1.008; UROBILINOGEN,URINE NEGATIVE mg/dL (<2.0)
[2019-04-02] MEDS ORDERED: CEFTRIAXONE 1 GM/D5W RTU 1 GM/50 ML RTUPB IV ONE (16:41)
[2019-04-02] MEDS ORDERED: ACETAMINOPHEN 325 MG TABLET PO PRN (17:08)
[2019-04-02] MEDS ORDERED: ONDANSETRON HCL INJ/PF 4 MG/2 ML SDV IV PRN (17:08)
--- NOTE | 2019-04-02 17:28 | PDOC H&P ---
History of Present Illness Admission Date/PCP: 04/02/19 17:01 JENNIFER COOPER PA-C Patient complains of: Patient came in with history of diarrhea at least 7-10 times per day for the last 1 week. History of Present Illness: JAMIE DAN I is a 73 year old female with history of COPD, diabetes mellitus, pulmonary fibrosis recently in [facility] for generalized weakness and a recent admission for a GI bleed came to the emergency room with complaints of severe diarrhea foul-smelling diarrhea for 1 week. As per the patient she is having the loose stools at least 7-10 times per day. The symptoms are associated with the lower abdominal pain discomfort and foul- smelling urination. She is also complaining of burning urination. Denies inc reased frequency of urination. Patient is afebrile at the time of admission WBC count is normal stool for C. difficile is negative. At the time of examination patient is complaining of need to go to the restroom for diarrhea. Patient and family is also giving the history of assisted fall at home. Past Medical History Cardiac Medical History: Reports: Hyperlipidema, Hypertension Pulmonary Medical History: Reports: Chronic Obstructive Pulmonary Disease (COPD), Intubation, Pneumonia Neurological Medical History: Reports: Seizures Endocrine Medical History: Reports: Diabetes Mellitus Type 1 Musculoskeltal Medical History: Reports: Arthritis Psychiatric Medical History: Denies: Depression Traumatic Medical History: Reports: Pneumothorax Past Surgical History Past Surgical History: Reports: Cardiac Catheterization, Cholecystectomy, Hysterectomy, Orthopedic Surgery - knee Social History Information Source: Patient Lives with: Alone Smoking Status: Unknown if Ever Smoked Frequency of Alcohol Use: None Hx Recreational Drug Use: No Drugs: None Hx Prescription Drug Abuse: No - Advance Directive Resuscitation Status: Do Not Resuscitate Family History Family History: Reviewed & Not Pertinent Parental Family History Reviewed: Yes - Family history of diabetes mellitus. Children Family History Reviewed: Yes Sibling(s) Family History Reviewed.: Yes Medication/Allergy Home Medications: Dulaglutide [Trulicity] 0.75 mg SQ CALHOUN@1000 03/01/19 Empagliflozin [Jardiance] 10 mg PO DAILY 03/01/19 Ergocalciferol (Vitamin D2) [Drisdol 50,000 unit (1.25MG) Capsule] 50,000 unit PO CALHOUN@1000 03/01/19 Fenofibric Acid (Choline) [Fenofibric Acid] 135 mg PO QHS 03/01/19 Fluticasone/Umeclidin/Vilanter [Trelegy 100-62.5-25 Mcg Ellipta 14 Dose/Dpi] 1 puff IH DAILY 03/01/19 Folic Acid [Folvite 1 mg Tablet] 1 mg PO DAILY 03/01/19 Insulin Glargine,Hum.rec.anlog [Lantus Insulin 100 Unit/1 ml 10 ml] 80 unit SUBCUT QHS 03/01/19 Ipratropium/Albuterol Sulfate [Duoneb 3 ml Ampul] 3 ml NEB RTQ6 03/01/19 Magnesium Oxide [Mag-Ox 400 mg Tablet] 400 mg PO DAILYP PRN 03/01/19 Nitroglycerin [Nitrostat 0.4 mg (1/150 Gr) Tabs 25/Bottle] 1 tab SL Q5MP PRN 03/01/19 Paroxetine HCl [Paxil 20 mg Tablet] 20 mg PO DAILY 03/01/19 Pramipexole Di-HCl [Pramipexole Dihydrochloride] 1.5 mg PO QHS 03/01/19 Pregabalin [Lyrica] 300 mg PO Q12 03/01/19 Simvastatin [Zocor 40 mg Tablet] 40 mg PO QPM 03/01/19 Pantoprazole Sodium [Protonix [address] Tablet] 40 mg PO DAILY #30 tablet. 03/08/19 Allergies/Adverse Reactions: morphine Allergy (Intermediate, Verified 02/05/19 11:29) Erythema Multiforme metformin Adverse Reaction (Verified 02/05/19 11:29) Diarrhea Review of Systems Constitutional: PRESENT: fatigue, weakness. ABSENT: fever(s) Eyes: ABSENT: visual disturbances Ears: ABSENT: hearing changes Nose, Mouth, and Throat: ABSENT: sore throat Cardiovascular: ABSENT: chest pain, dyspnea on exertion, edema, orthropnea, palpitations Respiratory: ABSENT: cough, hemoptysis Gastrointestinal: PRESENT: abdominal pain, diarrhea, nausea Genitourinary: PRESENT: dysuria Musculoskeletal: ABSENT: joint swelling Neurological: ABSENT: abnormal gait, abnormal speech, confusion, dizziness, focal weakness, syncope Psychiatric: ABSENT: anxiety, depression, homidical ideation, suicidal ideation Physical Exam Vital Signs: Temp Pulse Resp BP Pulse Ox 97.7 F 20 117/49 L 100 04/02/19 16:00 04/02/19 16:00 04/02/19 15:01 04/02/19 16:00 Intake & Output 04/01/19 04/02/19 04/03/19 06:59 06:59 06:59 Intake Total 500 Balance 500 Weight 106.5 kg General appearance: PRESENT: no acute distress Head exam: PRESENT: atraumatic Eye exam: PRESENT: PERRLA Mouth exam: PRESENT: moist, neck supple, tongue midline Teeth exam: PRESENT: poor dentation Neck exam: ABSENT: carotid bruit, JVD, lymphadenopathy, thyromegaly Respiratory exam: PRESENT: decreased breath sounds Cardiovascular exam: PRESENT: RRR. ABSENT: diastolic murmur, rubs, systolic murmur GI/Abdominal exam: PRESENT: normal bowel sounds, soft, tenderness, other - Mild tenderness over the suprapubic region.. ABSENT: distended, guarding, mass, organolmegaly, rebound Rectal exam: PRESENT: deferred Extremities exam: PRESENT: full ROM. ABSENT: calf tenderness, clubbing, pedal edema Neurological exam: PRESENT: alert, awake, oriented to person, oriented to place, oriented to time, oriented to situation, CN II-XII grossly intact. ABSENT: motor sensory deficit Psychiatric exam: PRESENT: appropriate affect, normal mood. ABSENT: homicidal ideation, suicidal ideation Results Laboratory Results: 04/02/19 11:55 04/02/19 11:55 04/02/19 04/02/19 04/02/19 11:55 11:55 14:14 WBC 10.0 RBC 3.30 L Hgb 9.6 L Hct 29.4 L MCV 89 MCH 29.0 MCHC 32.5 RDW 17.0 H Plt Count 286 Seg Neutrophils % 82.1 H Sodium 136.7 L Potassium 4.3 Chloride 99 Carbon Dioxide 29 Anion Gap 9 BUN 20 Creatinine 1.11 Est GFR ( Amer) 58 L Glucose 144 H Calcium 10.0 Magnesium 1.5 L Total Bilirubin 0.3 AST 22 Alkaline Phosphatase 48 Total Protein 6.6 Albumin 3.7 Urine Color Urine Appearance Urine pH Ur Specific [place] Urine Protein Urine Glucose (UA) Urine Ketones Urine Blood Urine Nitrite Ur Leukocyte Esterase Urine WBC (Auto) Urine RBC (Auto) Stool for White Cells MODERATE H 04/02/19 15:35 WBC RBC Hgb Hct MCV MCH MCHC RDW Plt Count Seg Neutrophils % Sodium Potassium Chloride Carbon Dioxide Anion Gap BUN Creatinine Est GFR ( Amer) Glucose Calcium Magnesium Total Bilirubin AST Alkaline Phosphatase Total Protein Albumin Urine Color YELLOW Urine Appearance SLIGHTLY-CLOUDY Urine pH 5.0 Ur Specific [place] 1.008 Urine Protein NEGATIVE Urine Glucose (UA) NEGATIVE Urine Ketones NEGATIVE Urine Blood NEGATIVE Urine Nitrite POSITIVE H Ur Leukocyte Esterase SMALL H Urine WBC (Auto) 7 Urine RBC (Auto) 0 Stool for White Cells Assessment and Plan - Diagnosis (1) Diarrhea Qualifiers: Diarrhea type: unspecified type Qualified Code(s): R19.7 - Diarrhea, unspecified Is this a current diagnosis for this admission?: Yes Plan: 04/02/2019-patient came in with complaints of severe diarrhea for the last 1 week. Foul-smelling stools. C. difficile was negative. Stool work-up is pending. Plan is to put her in a medical floor because patient is DNR/DNI and to start on IV fluids normal saline 75 cc/h, Zofran 4 mg IV every 6 as needed, GI prophylaxis, DVT prophylaxis is going to be initiated. Started on IV Rocephin 1 g daily blood cultures urine cultures sputum culture stool cultures are requested. Fall precautions are requested. Daily labs will be done. (2) Anemia Qualifiers: Anemia type: unspecified type Qualified Code(s): D64.9 - Anemia, unspecified Is this a current diagnosis for this admission?: No Plan: 04/02/2019-patient hemoglobin is 9.5 baseline hemoglobin is between 7-8. Patient might have anemia of chronic disease. (3) UTI (urinary tract infection) Qualifiers: Urinary tract infection type: site unspecified Hematuria presence: without hematuria Qualified Code(s): N39.0 - Urinary tract infection, site not specified Is this a current diagnosis for this admission?: Yes Plan: 04/02/2019-patient came with complaints of burning urination and foul-smelling urination and urine analysis shows leukocyte esterase positive nitrates are small. Started on IV Rocephin 1 g daily urine culture was requested. (4) Fall Qualifiers: Encounter type: initial encounter Qualified Code(s): W19.XXXA - Unspecified fall, initial encounter Is this a current diagnosis for this admission?: Yes Plan: 04/02/2019-patient came in with complaints of assisted fall physical therapy consult rehab consult will be requested. (5) Diabetes mellitus Qualifiers: Diabetes mellitus type: type 2 Is this a current diagnosis for this admission?: No Plan: 04/02/2019-patient has history of type 2 diabetes mellitus plan to put her on insulin sliding scale and resume her home insulin. (6) Hypertension Qualifiers: Hypertension type: essential hypertension Qualified Code(s): I10 - Essential (primary) hypertension Is this a current diagnosis for this admission?: No Plan: 04/02/2019-patient has history of hypertension blood pressure today is 117/60. Stable. Plan is to resume her home medications. (7) Obesity (BMI 30-39.9) Is this a current diagnosis for this admission?: No Plan: 04/02/2019-patient's BMI is 36.8 diet exercise weight loss lifestyle modifications are discussed with the patient. - Time Time Spent with patient: 25-34 minutes Medications reviewed and adjusted accordingly: Yes Anticipated discharge: Home
--- NOTE | 2019-04-02 18:59 | RADIOLOGY REPORT (SQ) ---
EXAM DESCRIPTION: ACUTE ABDOMEN SERIES COMPLETED DATE/TIME: 04/02/2019 6:08 pm REASON FOR STUDY: abd pain COMPARISON: 02/28/2019 NUMBER OF VIEWS: Three views. TECHNIQUE: Frontal chest, supine abdomen and upright/decubitus abdomen radiographic images acquired. LIMITATIONS: None. FINDINGS: CHEST: No infiltrate. Cardiomegaly without eder pulmonary edema. FREE AIR: None. No abnormal gas collections. BOWEL GAS PATTERN: Nonobstructive pattern. No dilated loops or air fluid levels. CALCIFICATIONS: No suspicious calcifications. HARDWARE: Neurostimulator on the right. SOFT TISSUES: No gross mass or suggestion of organomegaly. BONES: No acute fracture. No worrisome bone lesions. OTHER: No other significant finding. IMPRESSION: NO RADIOGRAPHIC EVIDENCE FOR ACUTE ABDOMINAL DISEASE. TECHNICAL DOCUMENTATION: JOB ID: [id number] [employer]- All Rights Reserved Reading location - IP/workstation name: [email or web address]
[2019-04-02] MEDS ORDERED: LOPERAMIDE HCL 2 MG CAPSULE PO PRN (20:41)
[2019-04-02] MEDS: PANTOPRAZOLE SODIUM 40 MG TABLET.DR PO SCH (22:14)
[2019-04-02] MEDS: ENOXAPARIN SODIUM INJ 40 MG/0.4 ML DISP.SYRIN SUBCUT SCH (22:15)
[2019-04-02] MEDS ORDERED: INSULIN GLARGINE,HUM.REC.ANLOG 1,000 UNIT/10 ML VIAL (PYX) SUBCUT PRN (22:33)
[2019-04-02] MEDS ORDERED: FENOFIBRATE NANOCRYSTALLIZED 145 MG TABLET PO ONE (22:45)
[2019-04-02] MEDS ORDERED: PRAMIPEXOLE DI-HCL 0.5 MG TABLET PO ONE (22:45)
[2019-04-02] MEDS ORDERED: INSULIN GLARGINE,HUM.REC.ANLOG 1,000 UNIT/10 ML VIAL SUBCUT ONE (22:45)
[2019-04-02] MEDS ORDERED: PREGABALIN 100 MG CAPSULE PO ONE (22:45)
[2019-04-02] MEDS ORDERED: PRAMIPEXOLE DI-HCL 0.5 MG TABLET ONE (22:59)
[2019-04-02] MEDS ORDERED: SIMVASTATIN 40 MG TABLET PO ONE (23:00)
[2019-04-03 05:51] LABS: ABSOLUTE EOSINOPHILS # (AUTO) 0.3 10^3/uL (0.0-0.6); ABSOLUTE LYMPHOCYTES (AUTO) 1.3 10^3/uL (0.5-4.7); ABSOLUTE MONOCYTES (AUTO) 0.4 10^3/uL (0.1-1.4); ABSOLUTE NEUT (AUTO) 4.7 10^3/uL (1.7-8.2); BASOPHILS % (AUTO) 0.7 % (0-2); EOSINOPHILS % (AUTO) 3.7 % (0-6); HEMATOCRIT 24.8 % (36.0-47.0); HEMOGLOBIN 8.1 g/dL (12.0-15.5); LYMPHOCYTES % (AUTO) 18.9 % (13-45); MEAN CORPUSCULAR HEMOGLOBIN 28.6 pg (27.0-33.4); MEAN CORPUSCULAR HGB CONC 32.6 g/dL (32.0-36.0); MEAN CORPUSCULAR VOLUME 88 fl (80-97); MONOCYTES % (AUTO) 5.8 % (3-13); PLATELET COUNT 255 10^3/uL (150-450); RED BLOOD COUNT 2.83 10^6/uL (3.72-5.28); RED CELL DISTRIBUTION WIDTH 16.9 % (11.5-14.0); SEGMENTED NEUTROPHILS % (AUTO) 70.9 % (42-78); TOTAL CELLS COUNTED % (AUTO) 100 %; WHITE BLOOD COUNT 6.7 10^3/uL (4.0-10.5)
[2019-04-03 06:12] LABS: ANION GAP 6 (5-19); BLOOD UREA NITROGEN 19 mg/dL (7-20); CALCIUM 9.6 mg/dL (8.4-10.2); CARBON DIOXIDE 28 mmol/L (22-30); CHLORIDE 104 mmol/L (98-107); CREATINE KINASE 34 U/L (30-135); GLUCOSE 102 mg/dL (75-110); POTASSIUM 4.1 mmol/L (3.6-5.0)
[2019-04-03 06:19] LABS: NT PRO BNP 257 pg/mL (<450)
[2019-04-03 06:22] LABS: TROPONIN I < 0.012 ng/mL
[2019-04-03] MEDS: NORMAL SALINE 1000 ML 1,000 ML IV PRN ×2 (06:35→21:17)
[2019-04-03] MEDS: PANTOPRAZOLE SODIUM 40 MG TABLET.DR PO SCH ×2 (06:48→18:40)
[2019-04-03] MEDS: PREGABALIN 100 MG CAPSULE PO SCH ×2 (09:55→21:18)
[2019-04-03] MEDS: CEFTRIAXONE 2 GM/D5W RTU 2 GM/50 ML RTUPB IV SCH (09:55)
[2019-04-03] MEDS ORDERED: ENOXAPARIN SODIUM INJ 40 MG/0.4 ML DISP.SYRIN SUBCUT SCH (10:00)
--- NOTE | 2019-04-03 10:35 | PDOC PROGRESS REPORT ---
Subjective Progress Note for:: 04/03/19 Subjective:: 73 year old female with history of COPD, diabetes mellitus, pulmonary fibrosis recently in [facility] for generalized weakness and a recent admission for a GI bleed came to the emergency room with complaints of severe diarrhea foul-smelling diarrhea for 1 week. As per the patient she is having the loose stools at least 7-10 times per day. The symptoms are associated with the lower abdominal pain discomfort and foul-smelling urination. She is also complaining of burning urination. Denies increased frequency of urination. Patient is afebrile at the time of admission WBC count is normal stool for C. difficile is negative. At the time of examination patient is complaining of need to go to the restroom for diarrhea. Patient and family is also giving the history of assisted fall at home. 04/03/2019 73-year-old female admitted for severe diarrhea, C. difficile is negative and UTI patient denies any loose stools from last night. No acute events in the last 24 hours. Afebrile. Reason For Visit: SEVERE DIARRHEA Physical Exam Vital Signs: Temp Pulse Resp BP Pulse Ox 98.7 F 80 20 126/41 H 95 04/03/19 07:25 04/03/19 07:25 04/03/19 07:25 04/03/19 07:25 04/03/19 07:25 Intake & Output 04/02/19 04/03/19 04/04/19 06:59 06:59 06:59 Intake Total 1210 Balance 1210 Weight 108.9 kg General appearance: PRESENT: no acute distress, well-developed, well-nourished Head exam: PRESENT: atraumatic, normocephalic Eye exam: PRESENT: conjunctiva pink, EOMI, PERRLA. ABSENT: scleral icterus Ear exam: PRESENT: normal external ear exam Mouth exam: PRESENT: moist, tongue midline Neck exam: ABSENT: carotid bruit, JVD, lymphadenopathy, thyromegaly Respiratory exam: PRESENT: clear to auscultation [place]. ABSENT: rales, rhonchi, wheezes Cardiovascular exam: PRESENT: RRR. ABSENT: diastolic murmur, rubs, systolic murmur Pulses: PRESENT: normal dorsalis pedis pul Vascular exam: PRESENT: normal capillary refill GI/Abdominal exam: PRESENT: normal bowel sounds, soft. ABSENT: distended, guarding, mass, organolmegaly, rebound, tenderness Rectal exam: PRESENT: deferred Extremities exam: PRESENT: full ROM. ABSENT: calf tenderness, clubbing, pedal edema Neurological exam: PRESENT: alert, awake, oriented to person, oriented to place, oriented to time, oriented to situation, CN II-XII grossly intact. ABSENT: motor sensory deficit Psychiatric exam: PRESENT: appropriate affect, normal mood. ABSENT: homicidal ideation, suicidal ideation Skin exam: PRESENT: dry, intact, warm. ABSENT: cyanosis, rash Results Laboratory Results: 04/03/19 05:35 04/03/19 05:35 04/02/19 04/02/19 04/02/19 11:55 11:55 14:14 WBC 10.0 RBC 3.30 L Hgb 9.6 L Hct 29.4 L MCV 89 MCH 29.0 MCHC 32.5 RDW 17.0 H Plt Count 286 Seg Neutrophils % 82.1 H Sodium 136.7 L Potassium 4.3 Chloride 99 Carbon Dioxide 29 Anion Gap 9 BUN 20 Creatinine 1.11 Est GFR ( Amer) 58 L Glucose 144 H Calcium 10.0 Magnesium 1.5 L Total Bilirubin 0.3 AST 22 Alkaline Phosphatase 48 Total Protein 6.6 Albumin 3.7 Lipase TSH Urine Color Urine Appearance Urine pH Ur Specific [place] Urine Protein Urine Glucose (UA) Urine Ketones Urine Blood Urine Nitrite Ur Leukocyte Esterase Urine WBC (Auto) Urine RBC (Auto) Stool for White Cells MODERATE H 04/02/19 04/03/19 04/03/19 15:35 05:35 05:35 WBC 6.7 RBC 2.83 L Hgb 8.1 L Hct 24.8 L MCV 88 MCH 28.6 MCHC 32.6 RDW 16.9 H Plt Count 255 Seg Neutrophils % 70.9 Sodium 137.9 Potassium 4.1 Chloride 104 Carbon Dioxide 28 Anion Gap 6 BUN 19 Creatinine 1.11 Est GFR ( Amer) 58 L Glucose 102 Calcium 9.6 Magnesium Total Bilirubin AST Alkaline Phosphatase Total Protein Albumin Lipase 52.8 TSH Urine Color YELLOW Urine Appearance SLIGHTLY-CLOUDY Urine pH 5.0 Ur Specific [place] 1.008 Urine Protein NEGATIVE Urine Glucose (UA) NEGATIVE Urine Ketones NEGATIVE Urine Blood NEGATIVE Urine Nitrite POSITIVE H Ur Leukocyte Esterase SMALL H Urine WBC (Auto) 7 Urine RBC (Auto) 0 Stool for White Cells 04/03/19 05:35 WBC RBC Hgb Hct MCV MCH MCHC RDW Plt Count Seg Neutrophils % Sodium Potassium Chloride Carbon Dioxide Anion Gap BUN Creatinine Est GFR ( Amer) Glucose Calcium Magnesium Total Bilirubin AST Alkaline Phosphatase Total Protein Albumin Lipase TSH 1.78 Urine Color Urine Appearance Urine pH Ur Specific [place] Urine Protein Urine Glucose (UA) Urine Ketones Urine Blood Urine Nitrite Ur Leukocyte Esterase Urine WBC (Auto) Urine RBC (Auto) Stool for White Cells 04/02/19 04/02/19 04/02/19 11:55 11:55 22:57 Creatine Kinase 56 45 Troponin I < 0.012 NT-Pro-B Natriuret Pep 04/02/19 04/03/19 04/03/19 22:57 05:35 05:35 Creatine Kinase 34 Troponin I < 0.012 < 0.012 NT-Pro-B Natriuret Pep 257 Impressions: Acute Abdomen Series 04/02/19 00:00 IMPRESSION: NO RADIOGRAPHIC EVIDENCE FOR ACUTE ABDOMINAL DISEASE. Assessment and Plan - Diagnosis (1) Diarrhea Qualifiers: Diarrhea type: unspecified type Qualified Code(s): R19.7 - Diarrhea, unspecified Is this a current diagnosis for this admission?: Yes Plan: 04/02/2019-patient came in with complaints of severe diarrhea for the last 1 week. Foul-smelling stools. C. difficile was negative. Stool work-up is pending. Plan is to put her in a medical floor because patient is DNR/DNI and to start on IV fluids normal saline 75 cc/h, Zofran 4 mg IV every 6 as needed, GI prophylaxis, DVT prophylaxis is going to be initiated. Started on IV Rocephin 1 g daily blood cultures urine cultures sputum culture stool cultures are requested. Fall precautions are requested. Daily labs will be done. 04/03/2019-diarrhea is resolving. C. difficile is negative. Presently on IV fluids normal saline at 75 cc/h. Acute abdominal series negative for acute pathology. (2) Anemia Qualifiers: Anemia type: unspecified type Qualified Code(s): D64.9 - Anemia, unspecified Is this a current diagnosis for this admission?: No Plan: 04/02/2019-patient hemoglobin is 9.5 baseline hemoglobin is between 7-8. Patient might have anemia of chronic disease. 04/03/2019-hemoglobin is 8.1 today. It is at her baseline. Plan is to check the labs on daily basis. (3) UTI (urinary tract infection) Qualifiers: Urinary tract infection type: site unspecified Hematuria presence: without hematuria Qualified Code(s): N39.0 - Urinary tract infection, site not specified Is this a current diagnosis for this admission?: Yes Plan: 04/02/2019-patient came with complaints of burning urination and foul-smelling urination and urine analysis shows leukocyte esterase positive nitrates are small. Started on IV Rocephin 1 g daily urine culture was requested. 04/03/2019-urine analysis is abnormal at the time of admission and complaint cover symptomatic urinary symptoms started on IV Rocephin. Cultures are pending at this moment. (4) Fall Qualifiers: Encounter type: initial encounter Qualified Code(s): W19.XXXA - Unspecified fall, initial encounter Is this a current diagnosis for this admission?: Yes Plan: 04/02/2019-patient came in with complaints of assisted fall physical therapy consult rehab consult will be requested. 04/03/2019-at the time of my examination physical therapy is working with the patient. (5) Diabetes mellitus Qualifiers: Diabetes mellitus type: type 2 Is this a current diagnosis for this admission?: No Plan: 04/02/2019-patient has history of type 2 diabetes mellitus plan to put her on insu sharon sliding scale and resume her home insulin. 04/03/2019-patient has history of type 2 diabetes mellitus latest blood sugar is 91. Plan is to continue her insulin sliding scale she is also on Lantus 8 units at home. Which was received. (6) Hypertension Qualifiers: Hypertension type: essential hypertension Qualified Code(s): I10 - Essential (primary) hypertension Is this a current diagnosis for this admission?: No Plan: 04/02/2019-patient has history of hypertension blood pressure today is 117/60. Stable. Plan is to resume her home medications. 04/03/2019-patient's blood pressure today is 115/50. Stable. Plan is to continue the present management. (7) Obesity (BMI 30-39.9) Is this a current diagnosis for this admission?: No - Time Time Spent with patient: 15-24 minutes Anticipated discharge: Home
[2019-04-03] MEDS: ENOXAPARIN SODIUM INJ 40 MG/0.4 ML DISP.SYRIN SUBCUT SCH (10:46)
[2019-04-03] MEDS: SIMVASTATIN 40 MG TABLET PO SCH (21:17)
[2019-04-03] MEDS: FENOFIBRATE NANOCRYSTALLIZED 145 MG TABLET PO SCH (21:17)
[2019-04-03] MEDS: INSULIN GLARGINE,HUM.REC.ANLOG 1,000 UNIT/10 ML VIAL SUBCUT SCH (21:18)
[2019-04-03] MEDS: PRAMIPEXOLE DI-HCL 0.5 MG TABLET PO SCH (21:18)
[2019-04-04] MEDS: PANTOPRAZOLE SODIUM 40 MG TABLET.DR PO SCH ×2 (06:31→17:04)
[2019-04-04] MEDS ORDERED: NITROGLYCERIN 0.4 MG/TAB 25 TAB/BOTTLE SL PRN (08:05)
[2019-04-04 09:03] LABS: ABSOLUTE EOSINOPHILS # (AUTO) 0.2 10^3/uL (0.0-0.6); ABSOLUTE MONOCYTES (AUTO) 0.5 10^3/uL (0.1-1.4); ABSOLUTE NEUT (AUTO) 3.6 10^3/uL (1.7-8.2); BASOPHILS % (AUTO) 0.8 % (0-2); EOSINOPHILS % (AUTO) 4.3 % (0-6); HEMATOCRIT 28.6 % (36.0-47.0); HEMOGLOBIN 9.2 g/dL (12.0-15.5); LYMPHOCYTES % (AUTO) 19.2 % (13-45); MEAN CORPUSCULAR HEMOGLOBIN 28.6 pg (27.0-33.4); MEAN CORPUSCULAR HGB CONC 32.3 g/dL (32.0-36.0); MEAN CORPUSCULAR VOLUME 89 fl (80-97); MONOCYTES % (AUTO) 8.8 % (3-13); PLATELET COUNT 269 10^3/uL (150-450); RED BLOOD COUNT 3.23 10^6/uL (3.72-5.28); SEGMENTED NEUTROPHILS % (AUTO) 66.9 % (42-78); TOTAL CELLS COUNTED % (AUTO) 100 %; WHITE BLOOD COUNT 5.4 10^3/uL (4.0-10.5)
[2019-04-04 09:19] LABS: ALBUMIN 3.6 g/dL (3.5-5.0); ALKALINE PHOSPHATASE 44 U/L (38-126); ANION GAP 9 (5-19); ASPARTATE AMINO TRANSFERASE 18 U/L (14-36); BILIRUBIN,DIRECT 0.2 mg/dL (0.0-0.4); BILIRUBIN,TOTAL 0.2 mg/dL (0.2-1.3); BLOOD UREA NITROGEN 16 mg/dL (7-20); CALCIUM 9.8 mg/dL (8.4-10.2); CARBON DIOXIDE 28 mmol/L (22-30); CHLORIDE 103 mmol/L (98-107); GLUCOSE 139 mg/dL (75-110); POTASSIUM 4.5 mmol/L (3.6-5.0); TOTAL PROTEIN 6.7 g/dL (6.3-8.2)
[2019-04-04] MEDS: CEFTRIAXONE 2 GM/D5W RTU 2 GM/50 ML RTUPB IV SCH (09:26)
[2019-04-04] MEDS: PAROXETINE HCL 20 MG TABLET PO SCH (09:30)
[2019-04-04] MEDS: FLUTICASONE/UMECLIDIN/VILANTER 100-62.5-25 MCG/DOSE IH SCH (09:31)
[2019-04-04] MEDS: FOLIC ACID 1 MG TABLET PO SCH (09:31)
[2019-04-04] MEDS: MAGNESIUM OXIDE 400 MG TABLET PO SCH (09:31)
[2019-04-04] MEDS: PREGABALIN 100 MG CAPSULE PO SCH ×2 (09:31→21:26)
[2019-04-04] MEDS: LOSARTAN POTASSIUM 50 MG TABLET PO SCH (09:36)
[2019-04-04] MEDS ORDERED: (PENDING PHARMACY ID) (Telmisartan [Micardis 80 Mg Tablet] 80 MG) PO SCH (10:00)
--- NOTE | 2019-04-04 12:09 | PDOC PROGRESS REPORT ---
Subjective Progress Note for:: 04/04/19 Subjective:: 73 year old female with history of COPD, diabetes mellitus, pulmonary fibrosis recently in [facility] for generalized weakness and a recent admission for a GI bleed came to the emergency room with complaints of severe diarrhea foul-smelling diarrhea for 1 week. As per the patient she is having the loose stools at least 7-10 times per day. The symptoms are associated with the lower abdominal pain discomfort and foul-smelling urination. She is also complaining of burning urination. Denies increased frequency of urination. Patient is afebrile at the time of admission WBC count is normal stool for C. difficile is negative. At the time of examination patient is complaining of need to go to the restroom for diarrhea. Patient and family is also giving the history of assisted fall at home. 04/03/2019 73-year-old female admitted for severe diarrhea, C. difficile is negative and UTI patient denies any loose stools from last night. No acute events in the last 24 hours. Afebrile. 04/04/2019-no acute events in the last 24 hours. Afebrile. Diarrhea is resolved. No complaints of urinary symptoms. Hemoglobin is 9.2 stable. Therapy is working with the patient. Family members are requesting personal care services, home physical therapy and home nursing. Reason For Visit: SEVERE DIARRHEA Physical Exam Vital Signs: Temp Pulse Resp BP Pulse Ox 98.9 F 82 19 131/47 H 97 04/04/19 11:29 04/04/19 11:29 04/04/19 11:29 04/04/19 11:29 04/04/19 11:29 Intake & Output 04/03/19 04/04/19 04/05/19 06:59 06:59 06:59 Intake Total 1210 0 Balance 1210 0 Weight 108.9 kg 107.8 kg General appearance: PRESENT: no acute distress, cooperative, obese Head exam: PRESENT: atraumatic Eye exam: PRESENT: PERRLA Teeth exam: PRESENT: poor dentation Neck exam: ABSENT: carotid bruit, JVD, lymphadenopathy, thyromegaly Respiratory exam: PRESENT: decreased breath sounds Cardiovascular exam: PRESENT: RRR. ABSENT: diastolic murmur, rubs, systolic murmur GI/Abdominal exam: PRESENT: normal bowel sounds, soft. ABSENT: distended, guarding, mass, organolmegaly, rebound, tenderness Rectal exam: PRESENT: deferred Extremities exam: PRESENT: full ROM. ABSENT: calf tenderness, clubbing, pedal edema Neurological exam: PRESENT: alert, awake, oriented to person, oriented to place, oriented to time, oriented to situation, CN II-XII grossly intact. ABSENT: motor sensory deficit Results Laboratory Results: 04/04/19 08:27 04/04/19 08:27 04/04/19 04/04/19 08:27 08:27 WBC 5.4 RBC 3.23 L Hgb 9.2 L Hct 28.6 L MCV 89 MCH 28.6 MCHC 32.3 RDW 17.0 H Plt Count 269 Seg Neutrophils % 66.9 Sodium 139.6 Potassium 4.5 Chloride 103 Carbon Dioxide 28 Anion Gap 9 BUN 16 Creatinine 1.13 Est GFR ( Amer) 57 L Glucose 139 H Calcium 9.8 Magnesium 1.6 Total Bilirubin 0.2 AST 18 Alkaline Phosphatase 44 Total Protein 6.7 Albumin 3.6 04/02/19 04/02/19 04/02/19 11:55 11:55 22:57 Creatine Kinase 56 45 Troponin I < 0.012 NT-Pro-B Natriuret Pep 04/02/19 04/03/19 04/03/19 22:57 05:35 05:35 Creatine Kinase 34 Troponin I < 0.012 < 0.012 NT-Pro-B Natriuret Pep 257 Impressions: Acute Abdomen Series 04/02/19 00:00 IMPRESSION: NO RADIOGRAPHIC EVIDENCE FOR ACUTE ABDOMINAL DISEASE. Assessment and Plan - Diagnosis (1) Diarrhea Qualifiers: Diarrhea type: unspecified type Qualified Code(s): R19.7 - Diarrhea, unspecified Is this a current diagnosis for this admission?: Yes Plan: 04/02/2019-patient came in with complaints of severe diarrhea for the last 1 week. Foul-smelling stools. C. difficile was negative. Stool work-up is pending. Plan is to put her in a medical floor because patient is DNR/DNI and to start on IV fluids normal saline 75 cc/h, Zofran 4 mg IV every 6 as needed, GI prophylaxis, DVT prophylaxis is going to be initiated. Started on IV Rocephin 1 g daily blood cultures urine cultures sputum culture stool cultures are requested. Fall precautions are requested. Daily labs will be done. 04/03/2019-diarrhea is resolving. C. difficile is negative. Presently on IV fluids normal saline at 75 cc/h. Acute abdominal series negative for acute pathology. 04/04/2019-diarrhea is resolved. C. difficile is negative during the hospital stay. Stool culture is pending. (2) Anemia Qualifiers: Anemia type: unspecified type Qualified Code(s): D64.9 - Anemia, unspecified Is this a current diagnosis for this admission?: No Plan: 04/02/2019-patient hemoglobin is 9.5 baseline hemoglobin is between 7-8. Patient might have anemia of chronic disease. 04/03/2019-hemoglobin is 8.1 today. It is at her baseline. Plan is to check the labs on daily basis. 04/04/2019-hemoglobin today is 9.2 stable. Patient has history of GI bleed. Stool is normal color and consistency. (3) UTI (urinary tract infection) Qualifiers: Urinary tract infection type: site unspecified Hematuria presence: without hematuria Qualified Code(s): N39.0 - Urinary tract infection, site not specified Is this a current diagnosis for this admission?: Yes Plan: 04/02/2019-patient came with complaints of burning urination and foul-smelling urination and urine analysis shows leukocyte esterase positive nitrates are small. Started on IV Rocephin 1 g daily urine culture was requested. 04/03/2019-urine analysis is abnormal at the time of admission and complaint cover symptomatic urinary symptoms started on IV Rocephin. Cultures are pending at this moment. 04/04/2019-urine culture is positive for E. coli on ceftriaxone. Plan is to continue the present management. (4) Fall Qualifiers: Encounter type: initial encounter Qualified Code(s): W19.XXXA - Unspecified fall, initial encounter Is this a current diagnosis for this admission?: Yes (5) Diabetes mellitus Qualifiers: Diabetes mellitus type: type 2 Is this a current diagnosis for this admission?: No Plan: 04/02/2019-patient has history of type 2 diabetes mellitus plan to put her on insulin sliding scale and resume her home insulin. 04/03/2019-patient has history of type 2 diabetes mellitus latest blood sugar is 9 1. Plan is to continue her insulin sliding scale she is also on Lantus 80 units at home. Which was received. 03/04/2019-patient has history of type 2 diabetes mellitus latest blood sugar is 27. On insulin sliding scale. Hemoglobin A1c 6.1. Managed to hold Lantus and Trulicity at this time. (6) Hypertension Qualifiers: Hypertension type: essential hypertension Qualified Code(s): I10 - Essential (primary) hypertension Is this a current diagnosis for this admission?: No Plan: 04/02/2019-patient has history of hypertension blood pressure today is 117/60. Stable. Plan is to resume her home medications. 04/03/2019-patient's blood pressure today is 115/50. Stable. Plan is to continue the present management. 04/04/2019-patient blood pressure today is 131/47. On IV fluids normal saline at 75 cc/h plan is to discontinue IV fluids from today. (7) Obesity (BMI 30-39.9) Is this a current diagnosis for this admission?: No (8) Fall Is this a current diagnosis for this admission?: Yes Plan: 04/04/2019-patient came in with complaints of assisted fall physical therapy is working with the patient. Family members are requesting for personal care services, home health and home PT. - Time Time Spent with patient: 15-24 minutes Medications reviewed and adjusted accordingly: Yes Anticipated discharge: Home with Homehealth
[2019-04-04] MEDS: IPRATROPIUM/ALBUTEROL 0.5-2.5 MG/3 ML AMPUL NEB PRN (17:38)
--- NOTE | 2019-04-04 18:40 | EKG REPORT ---
SEVERITY:- NORMAL ECG - SINUS RHYTHM : Confirmed by: Adrian Cruz 04-Apr-2019 18:39:21
[2019-04-04] MEDS: PRAMIPEXOLE DI-HCL 0.5 MG TABLET PO SCH (21:26)
[2019-04-04] MEDS: INSULIN GLARGINE,HUM.REC.ANLOG 1,000 UNIT/10 ML VIAL SUBCUT SCH (21:26)
[2019-04-04] MEDS: FENOFIBRATE NANOCRYSTALLIZED 145 MG TABLET PO SCH (21:26)
[2019-04-04] MEDS: SIMVASTATIN 40 MG TABLET PO SCH (21:26)
[2019-04-04] MEDS ORDERED: (PENDING PHARMACY ID) (Fenofibric Acid (Choline) [Fenofibric Acid] 135 MG) PO SCH (22:00)
[2019-04-04] MEDS ORDERED: (PENDING PHARMACY ID) (Pramipexole Di-Hcl [Mirapex] 1.5 MG) PO SCH (22:00)
[2019-04-05] MEDS: PANTOPRAZOLE SODIUM 40 MG TABLET.DR PO SCH ×2 (06:42→16:07)
[2019-04-05] MEDS: IPRATROPIUM/ALBUTEROL 0.5-2.5 MG/3 ML AMPUL NEB PRN (08:21)
[2019-04-05] MEDS ORDERED: (PENDING PHARMACY ID) (Dulaglutide [Trulicity] 0.75 MG) SQ SCH (10:00)
[2019-04-05] MEDS ORDERED: ERGOCALCIFEROL (VITAMIN D2) 50000 UNIT (1.25 MG) CAPSULE PO SCH (10:00)
[2019-04-05] MEDS: PREGABALIN 100 MG CAPSULE PO SCH ×2 (10:12→21:27)
[2019-04-05] MEDS: CEFTRIAXONE 2 GM/D5W RTU 2 GM/50 ML RTUPB IV SCH (10:12)
[2019-04-05] MEDS: PAROXETINE HCL 20 MG TABLET PO SCH (10:13)
[2019-04-05] MEDS: MAGNESIUM OXIDE 400 MG TABLET PO SCH (10:13)
[2019-04-05] MEDS: FOLIC ACID 1 MG TABLET PO SCH (10:13)
[2019-04-05] MEDS: LOSARTAN POTASSIUM 50 MG TABLET PO SCH (10:13)
[2019-04-05] MEDS: FLUTICASONE/UMECLIDIN/VILANTER 100-62.5-25 MCG/DOSE IH SCH (10:24)
--- NOTE | 2019-04-05 11:47 | PDOC PROGRESS REPORT ---
Subjective Progress Note for:: 04/05/19 Subjective:: 73 year old female with history of COPD, diabetes mellitus, pulmonary fibrosis recently in [facility] for generalized weakness and a recent admission for a GI bleed came to the emergency room with complaints of severe diarrhea foul-smelling diarrhea for 1 week. As per the patient she is having the loose stools at least 7-10 times per day. The symptoms are associated with the lower abdominal pain discomfort and foul-smelling urination. She is also complaining of burning urination. Denies increased frequency of urination. Patient is afebrile at the time of admission WBC count is normal stool for C. difficile is negative. At the time of examination patient is complaining of need to go to the restroom for diarrhea. Patient and family is also giving the history of assisted fall at home. 04/03/2019 73-year-old female admitted for severe diarrhea, C. difficile is negative and UTI patient denies any loose stools from last night. No acute events in the last 24 hours. Afebrile. 04/04/2019-no acute events in the last 24 hours. Afebrile. Diarrhea is resolved. No complaints of urinary symptoms. Hemoglobin is 9.2 stable. Therapy is working with the patient. Family members are requesting personal care services, home physical therapy and home nursing. 04/05/2019-no acute events in the last 24 hours. Afebrile. Physical therapy is working with the patient. I left a message for social service coordinator to make arra ngements for personal care services, home health and home PT. Reason For Visit: SEVERE DIARRHEA Physical Exam Vital Signs: Temp Pulse Resp BP Pulse Ox 97.8 F 86 18 131/45 H 94 04/05/19 08:09 04/05/19 08:21 04/05/19 08:21 04/05/19 08:09 04/05/19 08:21 Intake & Output 04/04/19 04/05/19 04/06/19 06:59 06:59 06:59 Intake Total 2049 2299 Balance 2049 2299 Weight 107.8 kg 110.2 kg General appearance: PRESENT: no acute distress, obese Head exam: PRESENT: atraumatic Eye exam: PRESENT: PERRLA Mouth exam: PRESENT: moist, tongue midline Teeth exam: PRESENT: poor dentation Neck exam: ABSENT: carotid bruit, JVD, lymphadenopathy, thyromegaly Respiratory exam: PRESENT: decreased breath sounds Cardiovascular exam: PRESENT: RRR. ABSENT: diastolic murmur, rubs, systolic murmur GI/Abdominal exam: PRESENT: normal bowel sounds, soft. ABSENT: distended, guarding, mass, organolmegaly, rebound, tenderness Extremities exam: PRESENT: full ROM. ABSENT: calf tenderness, clubbing, pedal edema Neurological exam: PRESENT: alert, awake, oriented to person, oriented to place, oriented to time, oriented to situation, CN II-XII grossly intact. ABSENT: motor sensory deficit Psychiatric exam: PRESENT: appropriate affect, normal mood. ABSENT: homicidal ideation, suicidal ideation Results Laboratory Results: 04/04/19 08:27 04/04/19 08:27 04/02/19 14:14 Stool - Stool - Final 04/02/19 04/02/19 04/02/19 11:55 11:55 22:57 Creatine Kinase 56 45 Troponin I < 0.012 NT-Pro-B Natriuret Pep 04/02/19 04/03/19 04/03/19 22:57 05:35 05:35 Creatine Kinase 34 Troponin I < 0.012 < 0.012 NT-Pro-B Natriuret Pep 257 Impressions: Acute Abdomen Series 04/02/19 00:00 IMPRESSION: NO RADIOGRAPHIC EVIDENCE FOR ACUTE ABDOMINAL DISEASE. Assessment and Plan - Diagnosis (1) Diarrhea Qualifiers: Diarrhea type: unspecified type Qualified Code(s): R19.7 - Diarrhea, unspecified Is this a current diagnosis for this admission?: Yes Plan: 04/02/2019-patient came in with complaints of severe diarrhea for the last 1 week. Foul-smelling stools. C. difficile was negative. Stool work-up is pending. Plan is to put her in a medical floor because patient is DNR/DNI and to start on IV fluids normal saline 75 cc/h, Zofran 4 mg IV every 6 as needed, GI prophylaxis, DVT prophylaxis is going to be initiated. Started on IV Rocephin 1 g daily blood cultures urine cultures sputum culture stool cultures are re quested. Fall precautions are requested. Daily labs will be done. 04/03/2019-diarrhea is resolving. C. difficile is negative. Presently on IV fluids normal saline at 75 cc/h. Acute abdominal series negative for acute pathology. 04/04/2019-diarrhea is resolved. C. difficile is negative during the hospital stay. Stool culture is pending. 04/05/2019-diarrhea is resolved. C. difficile is negative at the time of admission. (2) Anemia Qualifiers: Anemia type: unspecified type Qualified Code(s): D64.9 - Anemia, unspecified Is this a current diagnosis for this admission?: No Plan: 04/02/2019-patient hemoglobin is 9.5 baseline hemoglobin is between 7-8. Patient might have anemia of chronic disease. 04/03/2019-hemoglobin is 8.1 today. It is at her baseline. Plan is to check the labs on daily basis. 04/04/2019-hemoglobin today is 9.2 stable. Patient has history of GI bleed. Stool is normal color and consistency. 04/05/2019-patient has history of anemia of chronic disease hemoglobin is around 9.2. Stable. Plan is to closely monitor her labs on daily basis. (3) UTI (urinary tract infection) Qualifiers: Urinary tract infection type: site unspecified Hematuria presence: without hematuria Qualified Code(s): N39.0 - Urinary tract infection, site not specified Is this a current diagnosis for this admission?: Yes Plan: 04/02/2019-patient came with complaints of burning urination and foul-smelling urination and urine analysis shows leukocyte esterase positive nitrates are small. Started on IV Rocephin 1 g daily urine culture was requested. 04/03/2019-urine analysis is abnormal at the time of admission and complaint cover symptomatic urinary symptoms started on IV Rocephin. Cultures are pending at this moment. 04/04/2019-urine culture is positive for E. coli on ceftriaxone. Plan is to continue the present management. 04/05/2019-urine culture came back positive for E. coli presently on ceftriaxone no complaints of urinary symptoms. Afebrile. (4) Fall Qualifiers: Encounter type: initial encounter Qualified Code(s): W19.XXXA - Unspecified fall, initial encounter Is this a current diagnosis for this admission?: Yes Plan: 04/02/2019-patient came in with complaints of assisted fall physical therapy consult rehab consult will be requested. 04/03/2019-at the time of my examination physical therapy is working with the patient. 04/05/2019-patient came in with complaints of assisted fall physical therapy is working with the patient. Discharge plan is to arrange for personal care services, home health and home PT if needed. (5) Diabetes mellitus Qualifiers: Diabetes mellitus type: type 2 Is this a current diagnosis for this admission?: No Plan: 04/02/2019-patient has history of type 2 diabetes mellitus plan to put her on insulin sliding scale and resume her home insulin. 04/03/2019-patient has history of type 2 diabetes mellitus latest blood sugar is 91. Plan is to continue her insulin sliding scale she is also on Lantus 80 units at home. Which was received. 03/04/2019-patient has history of type 2 diabetes mellitus latest blood sugar is 127. On insulin sliding scale. Hemoglobin A1c 6.1. Managed to hold Lantus and Trulicity at this time. 04/05/2019-patient latest blood sugar is 29. Hemoglobin A1c 6.1. Presently on insulin sliding scale, Lantus and Trulicity are on hold. (6) Hypertension Qualifiers: Hypertension type: essential hypertension Qualified Code(s): I10 - Essential (primary) hypertension Is this a current diagnosis for this admission?: No Plan: 04/02/2019-patient has history of hypertension blood pressure today is 117/60. Stable. Plan is to resume her home medications. 04/03/2019-patient's blood pressure today is 115/50. Stable. Plan is to continue the present management. 04/04/2019-patient blood pressure today is 131/47. On IV fluids normal saline at 75 cc/h plan is to discontinue IV fluids from today. 04/05/2019-patient blood pressure today is 115/73. Blood pressures are stable. Plan is to continue the present management. (7) Obesity (BMI 30-39.9) Is this a current diagnosis for this admission?: No (8) Fall Is this a current diagnosis for this admission?: Yes - Time Time Spent with patient: 25-34 minutes Medications reviewed and adjusted accordingly: Yes Anticipated discharge: Home with Homehealth
[2019-04-05] MEDS ORDERED: PRAMIPEXOLE DI-HCL 0.5 MG TABLET PO ONE (16:00)
[2019-04-05] MEDS: NORMAL SALINE 1000 ML 1,000 ML IV PRN (20:33)
[2019-04-05] MEDS: SIMVASTATIN 40 MG TABLET PO SCH (21:28)
[2019-04-05] MEDS: PRAMIPEXOLE DI-HCL 0.5 MG TABLET PO SCH (21:28)
[2019-04-05] MEDS: FENOFIBRATE NANOCRYSTALLIZED 145 MG TABLET PO SCH (21:28)
[2019-04-05] MEDS: INSULIN GLARGINE,HUM.REC.ANLOG 1,000 UNIT/10 ML VIAL SUBCUT SCH (21:28)
[2019-04-06] MEDS: PANTOPRAZOLE SODIUM 40 MG TABLET.DR PO SCH (06:41)
[2019-04-06] MEDS: PREGABALIN 100 MG CAPSULE PO SCH (09:42)
[2019-04-06] MEDS: MAGNESIUM OXIDE 400 MG TABLET PO SCH (09:42)
[2019-04-06] MEDS: FLUTICASONE/UMECLIDIN/VILANTER 100-62.5-25 MCG/DOSE IH SCH (09:42)
[2019-04-06] MEDS: PAROXETINE HCL 20 MG TABLET PO SCH (09:42)
[2019-04-06] MEDS: LOSARTAN POTASSIUM 50 MG TABLET PO SCH (09:42)
[2019-04-06] MEDS: CEFTRIAXONE 2 GM/D5W RTU 2 GM/50 ML RTUPB IV SCH (09:42)
[2019-04-06] MEDS: FOLIC ACID 1 MG TABLET PO SCH (09:43)
[2019-04-06 10:19] LABS: HEMATOCRIT 27.9 % (36.0-47.0); HEMOGLOBIN 9.1 g/dL (12.0-15.5); MEAN CORPUSCULAR HEMOGLOBIN 28.2 pg (27.0-33.4); MEAN CORPUSCULAR HGB CONC 32.6 g/dL (32.0-36.0); MEAN CORPUSCULAR VOLUME 86 fl (80-97); PLATELET COUNT 284 10^3/uL (150-450); RED BLOOD COUNT 3.23 10^6/uL (3.72-5.28); RED CELL DISTRIBUTION WIDTH 16.8 % (11.5-14.0); WHITE BLOOD COUNT 6.8 10^3/uL (4.0-10.5)
[2019-04-06 10:38] LABS: ANION GAP 9 (5-19); BLOOD UREA NITROGEN 13 mg/dL (7-20); CALCIUM 9.2 mg/dL (8.4-10.2); CARBON DIOXIDE 32 mmol/L (22-30); CHLORIDE 97 mmol/L (98-107); GLUCOSE 170 mg/dL (75-110); POTASSIUM 4.4 mmol/L (3.6-5.0)
[2019-04-06 12:57] VITALS: BP 145/53
--- NOTE | 2019-04-07 18:28 | PDOC DISCHARGE SUMMARY ---
General - Admit/Disc Date/PCP Admission Date/Primary Care Provider: 04/02/19 17:01 JENNIFER COOPER PA-C Discharge Date: 04/06/19 - Discharge Diagnosis (1) Acute diarrhea Is this a current diagnosis for this admission?: Yes (2) Hyperlipidemia Is this a current diagnosis for this admission?: Yes (3) Hypertension Is this a current diagnosis for this admission?: Yes (4) Obesity (BMI 30-39.9) Is this a current diagnosis for this admission?: Yes (5) COPD (chronic obstructive pulmonary disease) Is this a current diagnosis for this admission?: Yes - Additional Information Resuscitation Status: Do Not Resuscitate Discharge Diet: Diabetic Discharge Activity: Activity As Tolerated Prescriptions: Sulfamethoxazole/Trimethoprim [Bactrim Ds Tablet] 1 each PO BID #2 tablet Home Medications: Dulaglutide [Trulicity] 0.75 mg SQ MO@1000 04/02/19 Ergocalciferol (Vitamin D2) [Drisdol 50,000 unit (1.25MG) Capsule] 50,000 unit PO MO@1000 04/02/19 Fenofibric Acid (Choline) [Fenofibric Acid] 135 mg PO QHS 04/02/19 Fluticasone/Umeclidin/Vilanter [Trelegy 100-62.5-25 Mcg Ellipta 14 Dose/Dpi] 1 puff IH DAILY 04/02/19 Folic Acid [Folvite 1 mg Tablet] 1 mg PO DAILY 04/02/19 Insulin Glargine,Hum.rec.anlog [Lantus Insulin 100 Unit/1 ml 10 ml] 80 unit SUBCUT QHS 04/02/19 Ipratropium/Albuterol Sulfate [Duoneb 3 ml Ampul] 3 ml NEB RTQ6HP PRN 04/02/19 Magnesium Oxide [Mag-Ox 400 mg Tablet] 400 mg PO DAILY 04/02/19 Nitroglycerin [Nitrostat 0.4 mg (1/150 Gr) Tabs 25/Bottle] 1 tab SL Q5MP PRN 04/02/19 Omeprazole 20 mg PO Q6AM 04/02/19 Paroxetine HCl [Paxil 20 mg Tablet] 20 mg PO DAILY 04/02/19 Pramipexole Di-HCl [Mirapex] 1.5 mg PO QHS 04/02/19 Pregabalin [Lyrica] 300 mg PO Q12 04/02/19 Simvastatin [Zocor 40 mg Tablet] 40 mg PO QPM 04/02/19 Telmisartan [Micardis 80 mg Tablet] 80 mg PO DAILY 04/02/19 Sulfamethoxazole/Trimethoprim [Bactrim Ds Tablet] 1 each PO BID #2 tablet 04/06/19 History of Present Illness History of Present Illness: Admitting hospitalist's H&P: JAMIE DAN I is a 73 year old female with history of COPD, diabetes mellitus, pulmonary fibrosis recently in [facility] for generalized weakness and a recent admission for a GI bleed came to the emergency room with complaints of severe diarrhea foul-smelling diarrhea for 1 week. As per the patient she is having the loose stools at least 7-10 times per day. The symptoms are associated with the lower abdominal pain discomfort and foul- smelling urination. She is also complaining of burning urination. Denies increased frequency of urination. Patient is afebrile at the time of admission WBC count is normal stool for C. difficile is negative. At the time of examination patient is complaining of need to go to the restroom for diarrhea. Patient and family is also giving the history of assisted fall at home. Hospital Course Hospital Course: Patient was admitted for severe persistent diarrhea and generalized weakness. She started IV fluids. C. difficile testing was also done which was negative. Stool culture was also sent and eventually came back negative. She is also treated with Rocephin for her UTI. She did improve clinically. Her diarrhea completely resolved and her stools came back to her baseline. She will be complete p.o. Bactrim at home for her UTI. Physical Exam Vital Signs: Temp Pulse Resp BP Pulse Ox 98.1 F 73 18 145/53 H 97 04/06/19 12:54 04/06/19 12:54 04/06/19 12:54 04/06/19 12:54 04/06/19 12:54 Intake & Output 04/06/19 04/07/19 04/08/19 06:59 06:59 06:59 Intake Total 1290 810 Balance 1290 810 Weight 241 lb 10.026 oz Results Laboratory Results: 04/06/19 10:09 04/06/19 10:09 04/02/19 17:50 Blood Blood Culture - Final NO GROWTH IN 5 DAYS 04/02/19 17:35 Blood Blood Culture - Final NO GROWTH IN 5 DAYS 04/02/19 15:35 Catheterized Urine Urine Culture - Final Escherichia Coli Enterococcus Faecalis(Group D) 04/02/19 04/02/19 04/02/19 11:55 11:55 22:57 Creatine Kinase 56 45 Troponin I < 0.012 NT-Pro-B Natriuret Pep 04/02/19 04/03/19 04/03/19 22:57 05:35 05:35 Creatine Kinase 34 Troponin I < 0.012 < 0.012 NT-Pro-B Natriuret Pep 257 Impressions: Acute Abdomen Series 04/02/19 00:00 IMPRESSION: NO RADIOGRAPHIC EVIDENCE FOR ACUTE ABDOMINAL DISEASE. Qualifiers - * PATIENT BEING DISCHARGED WITH ANY OF THE FOLLOWING DIAGNOSIS: No Acute Heart Failure - Is this a Heart Failure Patient?: No
== END 2019-04-06 14:17 | disposition home health service (06) | DRG 690 ==
LOC: ER 11:16 → EH 17:01 → 4N 18:35
PROVIDERS: ADMIT Internal Medicine; ATTEND Internal Medicine
DX: N39.0 Urinary tract infection, site not specified (principal); R19.7 Diarrhea, unspecified; B96.20 Unspecified Escherichia coli [E. coli] as the cause of diseases classified elsewhere; J44.9 Chronic obstructive pulmonary disease, unspecified; E78.5 Hyperlipidemia, unspecified; I10 Essential (primary) hypertension; D64.9 Anemia, unspecified; E11.9 Type 2 diabetes mellitus without complications; M19.90 Unspecified osteoarthritis, unspecified site; B95.2 Enterococcus as the cause of diseases classified elsewhere; E66.9 Obesity, unspecified; Z66 Do not resuscitate; J84.10 Pulmonary fibrosis, unspecified; Z79.4 Long term (current) use of insulin; Z90.710 Acquired absence of both cervix and uterus; Z90.49 Acquired absence of other specified parts of digestive tract; Z79.899 Other long term (current) drug therapy; Z88.6 Allergy status to analgesic agent; Z88.8 Allergy status to other drugs, medicaments and biological substances
CPT/HCPCS: 36415; 74022; 80048; 80053; 81001; 82272; 82550; 82962; 83036; 83690; 83735; 83880; 84443; 84484; 85025; 85027; 85610; 85730; 87040; 87045; 87086; 87088; 87186; 87205; 87493; 89055; 93005; 93010; 94660; 96361; 96374; 99284; J0696; J1815; J3490; J7030; J7040; J7620

== ENCOUNTER → 2019-05-26 | Outpatient (CLI) | payer MEDICARE, OTHER ==
--- NOTE | 2019-05-26 14:15 | WOMENS IMAGING REPORT ---
EXAM DESCRIPTION: BONE DENSITY HIP/SPINE COMPLETED DATE/TIME: 05/26/2019 1:37 pm REASON FOR STUDY: Z78.0 ASYMPTOMATIC MENOPAUSAL STATE Z12.31 ENCNTR SCREEN MAMMOGRAM FOR MALIGNANT NEOPLASM OF SHAUNA Z78.0 ASYMPTOMATIC MENOPAUSAL STATE COMPARISON: None. TECHNIQUE: Dual-Energy X-ray Absorptiometry (DEXA) of the AP Spine and Hip. LIMITATIONS: None. FINDINGS: LUMBAR SPINE: The bone mineral density (BMD) measured from L1-L4 in the AP projection correlates with a T-score of 3.3, which is normal as defined by the World Health Organization. BMD Change vs Baseline: 23.2% HIP: The bone mineral density (BMD) measured in the left hip correlates with a T-score of 0.2, which is no rmal as defined by the World Health Organization. BMD Change vs Baseline: -5.1% 10 year Fracture Risk Assessment: Major Osteoporotic Fracture: Not available. Hip Fracture: Not available. IMPRESSION: 1. LUMBAR SPINE WHO CLASSIFICATION: Normal 2. HIP WHO CLASSIFICATION: Normal OVERALL ASSESSMENT: WHO CLASSIFICATION: NORMAL. COMMENT: The World Health Organization defines low BMD as follows: T-score: Normal: Greater than -1.0 Osteopenia: Between -1.0 and -2.5 Osteoporosis: Less than -2.5 without fractures Established osteoporosis: Less than -2.5 with fractures In general, you may wish to consider: Diagnosis Treatment Follow-up DEXA Normal BMD Prevention 2-3 years Osteopenia Prevention/Therapy 1-2 years Osteoporosis Therapy Yearly TECHNICAL DOCUMENTATION: JOB ID: [id number] [employer]- All Rights Reserved Reading location - IP/workstation name: [email or web address]
--- NOTE | 2019-05-26 16:44 | WOMENS IMAGING REPORT ---
EXAM DESCRIPTION: 3D SCREENING MAMMO BILAT COMPLETED DATE/TIME: 05/26/2019 1:37 pm REASON FOR STUDY: Z12.31 ENCOUNTER FOR SCREENING MAMMOGRAM FOR MALIGNANT NEOPLASM OF BREAST Z12.31 ENCNTR SCREEN MAMMOGRAM FOR MALIGNANT NEOPLASM OF SHAUNA Z78.0 ASYMPTOMATIC MENOPAUSAL STATE COMPARISON: 2010 and subsequent. EXAM PARAMETERS: Standard craniocaudal and mediolateral oblique views of each breast recorded using digital acquisition and breast tomosynthesis. Read with the assistance of CAD. .[facility] - [employer] Clinical Quality Assurance Specialist Version 9.2 LIMITATIONS: None. FINDINGS: Findings present which are benign by mammographic criteria. No suspicious masses, calcific ations or architectural distortion. Pertinent benign findings: Stable scattered bilateral benign calcifications. Benign mammographic findings may include one or more of the following: Smooth masses, popcorn/rim/coa rse calcifications, asymmetries, post-procedure changes, and lesions with long-standing stability. IMPRESSION: BENIGN MAMMOGRAPHIC FINDINGS. BIRADS 2 BREAST DENSITY: b. There are scattered areas of fibroglandular density. BIRAD: ASSESSMENT: 2 BENIGN FINDING(S) RECOMMENDATION: ROUTINE SCREENING COMMENT: The patient has been notified of the results by letter per SA requirements. Additional no tification policies are in place for contacting patient with suspicious or incomplete findings. Quality ID #[id number]: The [employer] recommends an annual screening mammogram for women aged 40 years or over. This facility utilizes a reminder system to ensure that all patients receive reminder letters, and/or direct phone calls for appointments. This includes reminders for routine scr eening mammograms, diagnostic mammograms, or other Breast Imaging Interventions when appropriate. Th is patient will be placed in the appropriate reminder system. TECHNICAL DOCUMENTATION: FINDING NUMBER: (1) ASSESSMENT: (1) JOB ID: [id number] [employer]- All Rights Reserved Reading location - IP/workstation name: [email or web address]
== END ==
LOC: WI 13:06
PROVIDERS: ATTEND Internal Medicine
DX: Z12.31 Encounter for screening mammogram for malignant neoplasm of breast (principal); R92.0 Mammographic microcalcification found on diagnostic imaging of breast; Z78.0 Asymptomatic menopausal state
CPT/HCPCS: 77063; 77067; 77080

== ENCOUNTER → 2020-06-05 | Outpatient (CLI) | payer MEDICARE, OTHER ==
[2020-06-05 12:13] LABS: ALBUMIN 4.4 g/dL (3.5-5.0); ALKALINE PHOSPHATASE 38 U/L (38-126); ANION GAP 11 (5-19); ASPARTATE AMINO TRANSFERASE 31 U/L (14-36); BILIRUBIN,TOTAL 0.3 mg/dL (0.2-1.3); BLOOD UREA NITROGEN 39 mg/dL (7-20); CARBON DIOXIDE 30 mmol/L (22-30); CHLORIDE 102 mmol/L (98-107); CHOLESTEROL 160.14 mg/dL (0-200); GLUCOSE 124 mg/dL (75-110); POTASSIUM 4.6 mmol/L (3.6-5.0); TOTAL PROTEIN 7.3 g/dL (6.3-8.2); TRIGLYCERIDES 160 mg/dL (<150)
[2020-06-05 12:24] LABS: DIRECT LDL 67 mg/dL (<100)
== END ==
LOC: OD 10:34
PROVIDERS: ATTEND Physician Assistant
DX: I11.0 Hypertensive heart disease with heart failure (principal); I50.9 Heart failure, unspecified; E78.5 Hyperlipidemia, unspecified; Z79.899 Other long term (current) drug therapy
CPT/HCPCS: 36415; 80048; 80061; 80076; 83880